=== PATIENT | female | born 1930 | race Caucasian/White ===

== ENCOUNTER 2016-12-31 08:56 | Inpatient (IN) | payer MEDICARE ==
[2016-12-31] MEDS ORDERED: SODIUM CHLORIDE 0.9% 1,000 ML IV STA ×2 (08:58)
--- NOTE | 2016-12-31 09:00 | ED ---
Fever HPI - General Stated Complaint: Sepsis Time Seen by Provider: 12/31/16 08:56 Source: EMS, RN notes reviewed, old records reviewed Mode of arrival: EMS - History of Present Illness Initial Comments: This is a 86-year-old female with a history of multiple medical problems including dementia who is brought in for evaluation for decreased mental status and fever. She was found have a 101.3 temporal scan heart rate of 106 per EMS reports of urinary tract infection. No nausea vomiting diarrhea she normally is a and O 2 she appears be less than this. She was given 300 mL of fluid per EMS her heart rate came down to 90. She been crying and resistant to care. No other reports of problems MD Complaint: fever - Related Data Home Medications Medication Instructions Recorded Confirmed ALPRAZolam [Xanax] 0.5 mg PO DAILY 12/31/16 12/31/16 ALPRAZolam [Xanax] 0.5 mg PO DAILY PRN 12/31/16 12/31/16 Acetaminophen Tab [Tylenol Tab] 650 mg PO Q6H PRN 12/31/16 12/31/16 Alendronate Sodium Solution 70 mg PO TU 12/31/16 12/31/16 Bisacodyl [Dulcolax] 10 mg RECTAL DAILY PRN 12/31/16 12/31/16 Ferrous Sulfate [Feosol] 325 mg PO DAILY 12/31/16 12/31/16 Furosemide [Lasix] 40 mg PO QAM 12/31/16 12/31/16 Glycerin/Propylene Glycol 1 drop BOTH EYES Q8H PRN 12/31/16 12/31/16 [Artificial Tears Drops] Hydrocortisone Cream 1 applic TOPICAL DAILY PRN 12/31/16 12/31/16 [Hydrocortisone 2.5% Cream] Magnesium Hydroxide [Milk of 7,200 mg PO DAILY PRN 12/31/16 12/31/16 Magnesia Concentrate] Na Phos,M-B/Na Phos,Di-Ba [Fleet 133 ml RECTAL DAILY PRN 12/31/16 12/31/16 Adult] Potassium Chloride ER [K-Dur 10] 10 meq PO DAILY 12/31/16 12/31/16 Rivastigmine Tartrate [Exelon] 3 mg PO BID 12/31/16 12/31/16 Sulfamethox-Tmp 400-80Mg [Bactrim 1 tab PO BID 12/31/16 12/31/16 SS 400-80 mg] Talc-Zinc Oxide Powder 1 applic TOPICAL DAILY PRN 12/31/16 12/31/16 Talc-Zinc Oxide Powder 1 applic TOPICAL TID 12/31/16 12/31/16 predniSONE 5 mg PO DAILY 12/31/16 12/31/16 traZODone HCL 25 mg PO HS 12/31/16 12/31/16 Allergies Allergy/AdvReac Type Severity Reaction Status Date / Time adhesive tape Allergy Rash/Hives Verified 12/31/16 12:30 rivastigmine [From Exelon] Allergy Rash/Hives Verified 12/31/16 12:30 Review of Systems ROS Statement: Those systems with pertinent positive or pertinent negative responses have been documented in the HPI. ROS Other: All systems not noted in ROS Statement are negative. Limitations: ROS unobtainable due to patients medical condition General Exam - General Exam Comments Initial Comments: This is a well-developed well-nourished female she is crying General appearance: alert, in no apparent distress Head exam: Present: atraumatic, normocephalic, normal inspection Eye exam: Present: normal appearance, PERRL, EOMI. Absent: scleral icterus, conjunctival injection, periorbital swelling ENT exam: Present: mucous membranes dry Neck exam: Present: normal inspection. Absent: tenderness, meningismus, lymphadenopathy Respiratory exam: Present: normal lung sounds bilaterally. Absent: respiratory distress, wheezes, rales, rhonchi, stridor Cardiovascular Exam: Present: regular rate, normal rhythm, normal heart sounds. Absent: systolic murmur, diastolic murmur, rubs, gallop, clicks GI/Abdominal exam: Present: soft, normal bowel sounds. Absent: distended, tenderness, guarding, rebound, rigid Extremities exam: Present: normal inspection, full ROM, normal capillary refill. Absent: tenderness, pedal edema, joint swelling, calf tenderness Back exam: Present: normal inspection Neurological exam: Present: alert, altered, CN II-XII intact Psychiatric exam: Present: anxious, flat affect Skin exam: Present: warm, dry, intact, normal color. Absent: rash Course Vital Signs 12/31/16 12/31/16 12/31/16 09:00 09:04 09:30 Temperature 100.8 F H 101.8 F H 100.3 F H Pulse Rate 76 Pulse Rate [ 88 72 Right Supine Pulse Oximetery ] Respiratory 16 16 16 Rate Blood Pressure 131/59 Blood Pressure 131/59 113/54 [Right Arm Supine] O2 Sat by Pulse 93 L Oximetry 12/31/16 12/31/16 12/31/16 10:00 10:20 11:00 Temperature 100.0 F H 99.1 F 99.0 F Pulse Rate Pulse Rate [ 78 84 Right Supine Pulse Oximetery ] Respiratory 16 16 16 Rate Blood Pressure Blood Pressure 121/59 119/55 123/56 [Right Arm Supine] O2 Sat by Pulse Oximetry 12/31/16 14:03 Temperature 101.4 F H Pulse Rate 87 Pulse Rate [ Right Supine Pulse Oximetery ] Respiratory 18 Rate Blood Pressure 133/88 Blood Pressure [Right Arm Supine] O2 Sat by Pulse 98 Oximetry Medical Decision Making - Medical Decision Making Patient will be admitted for IV antibiotics and hydration. - Lab Data Result diagrams: 12/31/16 09:30 12/31/16 09:30 Lab Results 12/31/16 12/31/16 12/31/16 Range/Units 09:30 09:30 09:30 WBC 6.2 (3.8-10.6) k/uL RBC 3.31 L (3.80-5.40) m/uL Hgb 11.2 L (11.4-16.0) gm/dL Hct 32.1 L (34.0-46.0) % MCV 97.1 (80.0-100.0) fL MCH 33.8 (25.0-35.0) pg MCHC 34.8 (31.0-37.0) g/dL RDW 14.0 (11.5-15.5) % Plt Count 106 L (150-450) k/uL Neutrophils % 80 % Lymphocytes % 9 % Monocytes % 5 % Eosinophils % 4 % Basophils % 0 % Neutrophils # 5.0 (1.3-7.7) k/uL Lymphocytes # 0.6 L (1.0-4.8) k/uL Monocytes # 0.3 (0-1.0) k/uL Eosinophils # 0.2 (0-0.7) k/uL Basophils # 0.0 (0-0.2) k/uL PT 11.1 (9.0-12.0) sec INR 1.1 (<1.1) APTT 26.1 (22.0-30.0) sec Sodium (137-145) mmol/L Potassium (3.5-5.1) mmol/L Chloride (98-107) mmol/L Carbon Dioxide (22-30) mmol/L Anion Gap mmol/L BUN (7-17) mg/dL Creatinine (0.52-1.04) mg/dL Est GFR (MDRD) Af Amer (>60 ml/min/1.73 sqM) Est GFR (MDRD) Non-Af (>60 ml/min/1.73 sqM) Glucose (74-99) mg/dL Plasma Lactic Acid Vinicius (0.7-2.0) mmol/L Calcium (8.4-10.2) mg/dL Magnesium (1.6-2.3) mg/dL Total Bilirubin (0.2-1.3) mg/dL AST (14-36) U/L ALT (9-52) U/L Alkaline Phosphatase (38-126) U/L Total Creatine Kinase 181 H (30-135) U/L CK-MB (CK-2) 1.2 (0.0-2.4) ng/mL CK-MB (CK-2) Rel Index 0.7 Total Protein (6.3-8.2) g/dL Albumin (3.5-5.0) g/dL Urine Color Urine Appearance (Clear) Urine pH (5.0-8.0) Ur Specific [place] (1.001-1.035) Urine Protein (Negative) Urine Glucose (UA) (Negative) Urine Ketones (Negative) Urine Blood (Negative) Urine Nitrite (Negative) Urine Bilirubin (Negative) Urine Urobilinogen (<2.0) mg/dL Ur Leukocyte Esterase (Negative) Urine WBC (0-5) /hpf Ur Squamous Epith Cells (0-4) /hpf Urine Bacteria (None) /hpf 12/31/16 12/31/16 12/31/16 Range/Units 09:30 09:30 10:18 WBC (3.8-10.6) k/uL RBC (3.80-5.40) m/uL Hgb (11.4-16.0) gm/dL Hct (34.0-46.0) % MCV (80.0-100.0) fL MCH (25.0-35.0) pg MCHC (31.0-37.0) g/dL RDW (11.5-15.5) % Plt Count (150-450) k/uL Neutrophils % % Lymphocytes % % Monocytes % % Eosinophils % % Basophils % % Neutrophils # (1.3-7.7) k/uL Lymphocytes # (1.0-4.8) k/uL Monocytes # (0-1.0) k/uL Eosinophils # (0-0.7) k/uL Basophils # (0-0.2) k/uL PT (9.0-12.0) sec INR (<1.1) APTT (22.0-30.0) sec Sodium 138 (137-145) mmol/L Potassium 4.4 (3.5-5.1) mmol/L Chloride 108 H (98-107) mmol/L Carbon Dioxide 23 (22-30) mmol/L Anion Gap 7 mmol/L BUN 23 H (7-17) mg/dL Creatinine 1.59 H (0.52-1.04) mg/dL Est GFR (MDRD) Af Amer 37 (>60 ml/min/1.73 sqM) Est GFR (MDRD) Non-Af 31 (>60 ml/min/1.73 sqM) Glucose 100 H (74-99) mg/dL Plasma Lactic Acid Vniicius 0.9 (0.7-2.0) mmol/L Calcium 7.9 L (8.4-10.2) mg/dL Magnesium 2.1 (1.6-2.3) mg/dL Total Bilirubin 0.8 (0.2-1.3) mg/dL AST 36 (14-36) U/L ALT 38 (9-52) U/L Alkaline Phosphatase 132 H (38-126) U/L Total Creatine Kinase (30-135) U/L CK-MB (CK-2) (0.0-2.4) ng/mL CK-MB (CK-2) Rel Index Total Protein 5.7 L (6.3-8.2) g/dL Albumin 2.7 L (3.5-5.0) g/dL Urine Color Yellow Urine Appearance Cloudy H (Clear) Urine pH 7.5 (5.0-8.0) Ur Specific [place] 1.011 (1.001-1.035) Urine Protein 1+ H (Negative) Urine Glucose (UA) Negative (Negative) Urine Ketones Negative (Negative) Urine Blood Trace H (Negative) Urine Nitrite Negative (Negative) Urine Bilirubin Negative (Negative) Urine Urobilinogen 6.0 (<2.0) mg/dL Ur Leukocyte Esterase Moderate H (Negative) Urine WBC 14 H (0-5) /hpf Ur Squamous Epith Cells 1 (0-4) /hpf Urine Bacteria Moderate H (None) /hpf - Radiology Data Radiology results: report reviewed (I did review the imaging and report is evidence of bilateral lower lobe infiltrates.), image reviewed Disposition Clinical Impression: Bilateral pneumonia, Febrile illness, acute, Dehydration Disposition: ADMITTED IP TO THIS [facility] Condition: Stable
[2016-12-31 09:48] LABS: Basophils % (A) 0 %; CH 33.1; CHCM 34.2; Eosinophils # (A) 0.2 k/uL (0-0.7); Eosinophils % (A) 4 %; HCT 32.1 % (34.0-46.0); HDW 2.61; HGB 11.2 gm/dL (11.4-16.0); Luc # (Auto) 0.12; Luc % (Auto) 2; Lymphocytes # (A) 0.6 k/uL (1.0-4.8); Lymphocytes % (A) 9 %; MCH 33.8 pg (25.0-35.0); MCHC 34.8 g/dL (31.0-37.0); MCV 97.1 fL (80.0-100.0); Mean Platelet Volume 7.3; Monocytes # (A) 0.3 k/uL (0-1.0); Monocytes % (A) 5 %; Neutrophils % (A) 80 %; RBC 3.31 m/uL (3.80-5.40); WBC 6.2 k/uL (3.8-10.6); WBC (Perox) 6.99
[2016-12-31 09:57] LABS: Partial Thromboplastin Time 26.1 sec (22.0-30.0)
[2016-12-31 09:59] LABS: INR 1.1 (<1.1); Prothrombin Time 11.1 sec (9.0-12.0)
[2016-12-31 10:05] LABS: Calcium 7.9 mg/dL (8.4-10.2); Magnesium 2.1 mg/dL (1.6-2.3); Potassium 4.4 mmol/L (3.5-5.1); Total Bilirubin 0.8 mg/dL (0.2-1.3); Total Protein 5.7 g/dL (6.3-8.2)
[2016-12-31 10:18] LABS: Creatine Kinase MB 1.2 ng/mL (0.0-2.4)
[2016-12-31 10:36] LABS: Appearance,Urine Cloudy (Clear); Bacteria,Urine Moderate /hpf; Bilirubin,Urine Negative (Negative); Glucose,Urine (UA) Negative (Negative); Ketones,Urine Negative (Negative); Leukocyte Esterase,Urine Moderate (Negative); Nitrite,Urine Negative (Negative); PH, Urine 7.5 (5.0-8.0); Particle Count 92829; Protein,Urine 1+ (Negative); Specific Gravity,Urine 1.011 (1.001-1.035); Squamous Epithelial Cell,Urine 1 /hpf (0-4); UA Billing (MACRO vs. MICRO) MICRO; WBC,Urine 14 /hpf (0-5)
--- NOTE | 2016-12-31 12:32 | XR ---
EXAMINATION TYPE: XR chest 2V DATE OF EXAM: 12/31/2016 11:39 AM HISTORY: Shortness of breath. COMPARISON: None. TECHNIQUE: 2 view chest FINDINGS: Heart size is mildly prominent. Pulmonary vasculature is normal. Mild bibasilar infiltrates are prese nt. Correlate for atelectasis or pneumonia. IMPRESSION: 1. Bibasilar infiltrates. Correlate for atelectasis or pneumonia. Follow-up is recommended.
[2016-12-31] MEDS ORDERED: LEVOFLOXACIN 750MG-D5W PMX 750 MG in DEXTROSE/WATER 1 150ML.BAG IVPB STA (13:41)
[2016-12-31] MEDS ORDERED: PNEUMONIA PROTOCOL UTILIZED 1 EACH MISC PO PRN (14:19)
[2016-12-31] MEDS ORDERED: ACETAMINOPHEN TAB 325 MG TAB PO PRN (14:21)
[2016-12-31] MEDS ORDERED: ARTIFICIAL TEARS-HYPROMELLOSE DROPS 15 ML BTL BOTH EYES PRN (14:21)
[2016-12-31] MEDS ORDERED: KETOROLAC 30 MG/ML 1 ML VIAL IVP STA (14:22)
[2016-12-31] MEDS ORDERED: BISACODYL 10 MG SUPP RECTAL PRN (16:13)
[2016-12-31] MEDS ORDERED: ALPRAZolam 0.5 MG TAB PO PRN (16:13)
[2016-12-31] MEDS ORDERED: HYDROCORTISONE 1% CREAM 30 GM TUBE TOPICAL PRN (16:13)
[2016-12-31] MEDS ORDERED: MAGNESIUM HYDROXIDE 2,400 MG/10 ML CUP PO PRN (16:13)
[2016-12-31] MEDS: PIPERACILLIN-TAZOBACTAM 3.375 GM in DEXTROSE/WATER 1 50ML.BAG IVPB SCH ×2 (17:13→23:12)
[2016-12-31] MEDS: traZODone HCL 50 MG TAB PO SCH (20:12)
[2016-12-31] MEDS: IPRATROPIUM-ALBUTEROL 3 ML NEB INHALATION SCH ×2 (20:28→20:29)
[2016-12-31] MEDS ORDERED: IPRATROPIUM-ALBUTEROL 3 ML NEB INHALATION PRN (20:34)
[2017-01-01] MEDS ORDERED: LORazepam 2 MG/ML SYRINGE IV PRN (05:55)
[2017-01-01] MEDS ORDERED: ALPRAZolam 0.5 MG TAB PO PRN (05:57)
[2017-01-01 06:15] LABS: Basophils % (A) 0 %; CH 32.5; CHCM 32.4; Eosinophils # (A) 0.2 k/uL (0-0.7); Eosinophils % (A) 2 %; HDW 2.66; HGB 11.9 gm/dL (11.4-16.0); Luc # (Auto) 0.23; Luc % (Auto) 2; Lymphocytes # (A) 1.7 k/uL (1.0-4.8); Lymphocytes % (A) 17 %; MCH 33.4 pg (25.0-35.0); MCHC 33.1 g/dL (31.0-37.0); MCV 100.9 fL (80.0-100.0); Macrocytosis Slight; Mean Platelet Volume 7.2; Monocytes # (A) 0.4 k/uL (0-1.0); Monocytes % (A) 4 %; Neutrophils # (A) 7.6 k/uL (1.3-7.7); Neutrophils % (A) 75 %; RBC 3.57 m/uL (3.80-5.40); WBC 10.1 k/uL (3.8-10.6); WBC (Perox) 10.94
[2017-01-01] MEDS: DILTIAZEM 125 MG in SODIUM CHLORIDE 0.9% 100 ML IV SCH (06:26)
[2017-01-01 06:29] LABS: Calcium 8.3 mg/dL (8.4-10.2); Total Bilirubin 1.1 mg/dL (0.2-1.3); Total Protein 5.7 g/dL (6.3-8.2)
[2017-01-01 06:31] LABS: Potassium 4.7 mmol/L (3.5-5.1)
[2017-01-01 07:10] LABS: Glucose,Whole Blood 104 mg/dL (75-99)
[2017-01-01 07:29] LABS: Appearance,Urine Turbid (Clear); Bacteria,Urine Many /hpf; Bilirubin,Urine Negative (Negative); Glucose,Urine (UA) Negative (Negative); Ketones,Urine 1+ (Negative); Leukocyte Esterase,Urine Large (Negative); Mucus,Urine Rare /hpf; Nitrite,Urine Negative (Negative); PH, Urine 7.5 (5.0-8.0); Particle Count 129291; Protein,Urine 1+ (Negative); RBC,Urine 6 /hpf (0-5); Specific Gravity,Urine 1.011 (1.001-1.035); Squamous Epithelial Cell,Urine 2 /hpf (0-4); UA Billing (MACRO vs. MICRO) MICRO; Urobilinogen,Urine <2.0 mg/dL (<2.0); WBC,Urine >182 /hpf (0-5)
[2017-01-01] MEDS ORDERED: DEXTROSE 5% IN WATER 100 ML with AMIODARONE 150 MG IV ONE (07:30)
[2017-01-01] MEDS: AMIODARONE 450 MG in DEXTROSE 5% IN WATER 250 ML IV SCH ×6 (08:01→23:33)
[2017-01-01] MEDS: PIPERACILLIN-TAZOBACTAM 3.375 GM in DEXTROSE/WATER 1 50ML.BAG IVPB SCH ×3 (08:02→23:35)
--- NOTE | 2017-01-01 08:15 | XR ---
EXAMINATION TYPE: XR chest 1V portable DATE OF EXAM: 01/01/2017 8:08 AM COMPARISON: NONE INDICATION: Short of breath low blood pressure TECHNIQUE: Single frontal view of the chest is obtained. FINDINGS: The heart size is mildly prominent. The pulmonary vasculature is prominent. Bibasilar infiltrates are present greater on the right. These are increasing over the interval. Peribronchial thickening is present. Small right pleural effusion is present. IMPRESSION: 1. Clinical consideration for developing congestive heart failure is recommended.
[2017-01-01] MEDS ORDERED: ENOXAPARIN 60 MG/0.6 ML SYRINGE SQ SCH (09:00)
[2017-01-01] MEDS ORDERED: MAGNESIUM SULFATE-D5W PMX 1 GM in DEXTROSE/WATER 1 100ML.BAG IVPB ONE (10:00)
[2017-01-01] MEDS: predniSONE 5 MG TAB PO SCH (11:01)
[2017-01-01] MEDS: FERROUS SULFATE 325 MG TAB PO SCH (11:01)
[2017-01-01] MEDS: DONEPEZIL 10 MG TAB PO SCH (11:01)
[2017-01-01] MEDS: POTASSIUM CHLORIDE ER 10 MEQ TAB.ER.PRT PO SCH (11:01)
[2017-01-01] MEDS: FUROSEMIDE 40 MG TAB PO SCH (11:01)
[2017-01-01] MEDS: IPRATROPIUM-ALBUTEROL 3 ML NEB INHALATION SCH ×4 (11:07→20:44)
--- NOTE | 2017-01-01 11:39 | ECHOF ---
Referral Reason:ventricular tachycardia MEASUREMENTS -------- HEIGHT: 162.6 cm WEIGHT: 63.5 kg BP: RVIDd: 2.3 cm (< 3.3) IVSd: 1.4 cm (0.6 - 1.1) LVIDd: 5.0 cm (3.9 - 5.3) LVPWd: 1.3 cm (0.6 - 1.1) IVSs: 1.5 cm LVIDs: 4.4 cm LVPWs: 1.5 cm LA Diam: 3.6 cm (2.7 - 3.8) LAESV Index (A-L): 35.59 ml/m Ao Diam: 3.1 cm (2.0 - 3.7) LA Diam: 4.0 cm (2.7 - 3.8) MV E Chip: 0.58 m/s MV DecT: 104 ms MV A Chip: 0.36 m/s MV E/A Ratio: 1.65 AV maxP.74 mmHg AV meanP.97 mmHg RAP: 5.00 mmHg RVSP: 27.93 mmHg FINDINGS -------- Undetermined rhythm. This was a technically adequate study. There is moderate concentric left ventricular hypertrophy. Overall left ventricular systolic function is normal with, an EF between 55 - 60 %. The right ventricle is normal in size. The left atrium is mildly dilated. The right atrial size is normal. The aortic valve was not well visualized. There is severe aortic valve sclerosis. There is severe aortic stenosis present. Peak/mean gradient across the Aortic Valve is 58.74mmHg / 33.97mmHg. AOV is possible Bicuspid. Mild mitral annular calcification present. Mild mitral regurgitation is present. Mild tricuspid regurgitation present. There is no evidence of pulmonary hypertension. The right ventricular systolic pressure, as measured by Doppler, is 27.93mmHg. There is no pulmonic regurgitation present. The aortic root size is normal. There is no pericardial effusion. CONCLUSIONS -------- 1. There is moderate concentric left ventricular hypertrophy. 2. Mild tricuspid regurgitation present. 3. There is no evidence of pulmonary hypertension. 4. The right ventricular systolic pressure, as measured by Doppler, is 27.93mmHg. 5. There is no pericardial effusion. 6. The left atrium is mildly dilated. 7. The aortic valve was not well visualized. 8. There is severe aortic valve sclerosis. 9. There is severe aortic stenosis present. 10. Peak/mean gradient across the Aortic Valve is 58.74mmHg / 33.97mmHg. 11. AOV is possible Bicuspid. 12. Mild mitral annular calcification present. 13. Mild mitral regurgitation is present. OFFSET DUPLICATING MACHINE OPERATOR: Janell Glover RDCS
--- NOTE | 2017-01-01 11:59 | P.HPIM ---
History of Present Illness H&P Date: 01/01/17 Chief Complaint: Febrile illness Patient is an 86-year-old female patient of Dr. Andino who resides at [facility] who was noticed to have elevated fever and feeling tired she was sent to [facility] emergency room, she had evidence of by basilar infiltrates and evidence of urinary tract infection she was started on IV Levaquin and was admitted to medical floor. Lactic acid was normal at 0.9 on presentation. A few hours later patient developed an episode of atrial fibrillation with rapid ventricular response heart rate was up to 200, blood pressure was low, and at that time repeat lactic acid was elevated at 5 she was given IV fluids she was started on IV Cardizem drip she was started on Lovenox subcu and was transferred to telemetry, subsequence the patient had cardiac arrest with an episode of V. tach she did not require any chest compression she was transferred to intensive care unit she was started on IV Cordarone, Levaquin was discontinued she was started on IV Zosyn, blood culture and urine culture and sputum culture were ordered. Pulmonary consultation and cardiology consultation were requested. Past Medical History Past Medical History: Dementia, Osteoarthritis (OA), Renal Disease Additional Past Medical History / Comment(s): Rhabdomyolysis, UTI, aortic stenosis, atherosclerosis osteoporosis, lupus, hypokalemia, anemia, difficulty ambulating-uses walker and assistance, multiple UTIs. History of Any Multi-Drug Resistant Organisms: None Reported Past Surgical History: No Surgical Hx Reported Past Anesthesia/Blood Transfusion Reactions: Unable to Obtain Additional Past Anesthesia/Blood Transfusion Reaction / Comment(s): no previous transfusion reported. Past Psychological History: Anxiety Smoking Status: Unknown if ever smoked Past Alcohol Use History: None Reported Past Drug Use History: None Reported - Past Family History Mother History Unknown: Yes Family Medical History: No Reported History, Unable to Obtain Father History Unknown: Yes Family Medical History: No Reported History, Unable to Obtain Medications and Allergies Home Medications Medication Instructions Recorded Confirmed Type ALPRAZolam [Xanax] 0.5 mg PO DAILY 12/31/16 12/31/16 History ALPRAZolam [Xanax] 0.5 mg PO DAILY PRN 12/31/16 12/31/16 History Acetaminophen Tab [Tylenol Tab] 650 mg PO Q6H PRN 12/31/16 12/31/16 History Alendronate Sodium Solution 70 mg PO TU 12/31/16 12/31/16 History Bisacodyl [Dulcolax] 10 mg RECTAL DAILY PRN 12/31/16 12/31/16 History Ferrous Sulfate [Feosol] 325 mg PO DAILY 12/31/16 12/31/16 History Furosemide [Lasix] 40 mg PO QAM 12/31/16 12/31/16 History Glycerin/Propylene Glycol 1 drop BOTH EYES Q8H PRN 12/31/16 12/31/16 History [Artificial Tears Drops] Hydrocortisone Cream 1 applic TOPICAL DAILY PRN 12/31/16 12/31/16 History [Hydrocortisone 2.5% Cream] Magnesium Hydroxide [Milk of 7,200 mg PO DAILY PRN 12/31/16 12/31/16 History Magnesia Concentrate] Na Phos,M-B/Na Phos,Di-Ba [Fleet 133 ml RECTAL DAILY PRN 12/31/16 12/31/16 History Adult] Potassium Chloride ER [K-Dur 10] 10 meq PO DAILY 12/31/16 12/31/16 History Rivastigmine Tartrate [Exelon] 3 mg PO BID 12/31/16 12/31/16 History Sulfamethox-Tmp 400-80Mg [Bactrim 1 tab PO BID 12/31/16 12/31/16 History SS 400-80 mg] Talc-Zinc Oxide Powder 1 applic TOPICAL DAILY PRN 12/31/16 12/31/16 History Talc-Zinc Oxide Powder 1 applic TOPICAL TID 12/31/16 12/31/16 History predniSONE 5 mg PO DAILY 12/31/16 12/31/16 History traZODone HCL 25 mg PO HS 12/31/16 12/31/16 History Allergies Allergy/AdvReac Type Severity Reaction Status Date / Time adhesive tape Allergy Rash/Hives Verified 12/31/16 12:30 rivastigmine [From Exelon] Allergy Rash/Hives Verified 12/31/16 12:30 Physical Exam Vitals: Vital Signs Temp Pulse Pulse Pulse Resp BP BP 01/01/17 11:46 54 L 01/01/17 11:28 01/01/17 11:27 54 L 01/01/17 10:50 64 24 91/51 01/01/17 10:40 58 L 21 88/51 01/01/17 10:30 56 L 19 79/49 01/01/17 10:20 60 17 94/47 01/01/17 10:10 56 L 18 94/47 01/01/17 10:00 59 L 21 97/60 01/01/17 09:50 74 16 97/60 01/01/17 09:40 68 18 96/49 01/01/17 09:30 69 21 96/49 01/01/17 09:20 63 19 101/54 01/01/17 09:10 74 19 101/54 01/01/17 09:00 81 33 H 101/54 01/01/17 08:50 84 25 H 108/62 01/01/17 08:40 83 29 H 95/61 01/01/17 08:30 86 28 H 95/61 01/01/17 08:20 91 21 94/53 01/01/17 08:10 91 40 H 94/53 01/01/17 08:00 98.6 F 93 85 29 H 94/53 01/01/17 07:50 141 H 29 H 71/49 01/01/17 07:40 159 H 13 80/49 01/01/17 07:30 146 H 13 85/53 01/01/17 07:20 144 H 23 71/50 01/01/17 07:10 148 H 9 L 93/54 01/01/17 07:00 173 H 24 82/51 01/01/17 06:53 20 L 01/01/17 06:35 186 H 115/11 01/01/17 06:23 98.8 F 181 H 18 95/51 01/01/17 05:41 98.6 F 120 H 22 115/67 12/31/16 23:55 98.6 F 83 20 97/75 12/31/16 20:40 80 12/31/16 20:31 81 12/31/16 15:57 16 12/31/16 15:00 98.4 F 82 16 BP Pulse Ox 01/01/17 11:46 01/01/17 11:28 96 01/01/17 11:27 01/01/17 10:50 96 01/01/17 10:40 96 01/01/17 10:30 97 01/01/17 10:20 96 01/01/17 10:10 97 01/01/17 10:00 95 01/01/17 09:50 97 01/01/17 09:40 94 L 01/01/17 09:30 95 01/01/17 09:20 96 01/01/17 09:10 97 01/01/17 09:00 96 01/01/17 08:50 96 01/01/17 08:40 96 01/01/17 08:30 95 01/01/17 08:20 91 L 01/01/17 08:10 95 01/01/17 08:00 94 L 01/01/17 07:50 93 L 01/01/17 07:40 93 L 01/01/17 07:30 94 L 01/01/17 07:20 95 01/01/17 07:10 94 L 01/01/17 07:00 95 01/01/17 06:53 01/01/17 06:35 01/01/17 06:23 01/01/17 05:41 94 L 12/31/16 23:55 93 L 12/31/16 20:40 12/31/16 20:31 12/31/16 15:57 12/31/16 15:00 122/58 93 L Intake and Output 12/31/16 01/01/17 01/01/17 22:59 06:59 14:59 Intake Total 404 092 8109.1 Output Total 85 Balance 830 895 0153.1 Intake: IV 2000 0.9 NACL 2000 Intake, IV Titration 79.1 Amount Amiodarone 450 mg In 66.6 Dextrose 5% in Water 250 ml @ 1 MG/MIN 34.53 mls/ hr IV .[id number] [facility] Rx#: [id number] Piperacillin-Tazobactam 3 12.5 .375 gm In Dextrose/Water 1 50ml.bag @ 12.5 mls/hr IVPB Q8HR [facility] Rx#: [id number] Oral 200 100 Output: Urine 85 Other: Voiding Method Diaper Diaper Diaper Incontinent Incontinent Incontinent # Voids 1 2 Weight 63.503 kg Currently patient is somnolent she is responsive only to repeated to stimuli HEENT head normocephalic and atraumatic Neck is supple no JVD no goiter no lymphadenopathy Chest exam reveals a crackles in both lung ling no wheezing Cardiac exam reveals irregular heart sounds no gallops with 3/6 systolic murmur in the left sternal border Abdomen is soft nontender no organomegaly with normal bowel sounds Extremity exam reveals no edema no cyanosis or clubbing Skin exam reveals a pressure area in the sacral region without open skin lesions Results CBC & Chem 7: 01/01/17 06:00 01/01/17 06:00 Labs: Abnormal Lab Results - Last 24 Hours (Table) 01/01/17 01/01/17 01/01/17 Range/Units 06:00 06:00 06:00 RBC 3.57 L (3.80-5.40) m/uL MCV 100.9 H (80.0-100.0) fL Plt Count 105 L (150-450) k/uL Chloride 110 H (98-107) mmol/L Carbon Dioxide 19 L (22-30) mmol/L BUN 21 H (7-17) mg/dL Creatinine 1.70 H (0.52-1.04) mg/dL POC Glucose (mg/dL) (75-99) mg/dL Plasma Lactic Acid Vinicuis 5.7 H* (0.7-2.0) mmol/L Calcium 8.3 L (8.4-10.2) mg/dL Alkaline Phosphatase 152 H (38-126) U/L Total Protein 5.7 L (6.3-8.2) g/dL Albumin 2.8 L (3.5-5.0) g/dL Urine Appearance (Clear) Urine Protein (Negative) Urine Ketones (Negative) Urine Blood (Negative) Ur Leukocyte Esterase (Negative) Urine RBC (0-5) /hpf Urine WBC (0-5) /hpf Urine WBC Clumps (None) /hpf Urine Bacteria (None) /hpf Hyaline Casts (0-2) /lpf Urine Mucus (None) /hpf Urine Yeast (Budding) (None) /hpf 01/01/17 01/01/17 Range/Units 07:00 07:09 RBC (3.80-5.40) m/uL MCV (80.0-100.0) fL Plt Count (150-450) k/uL Chloride (98-107) mmol/L Carbon Dioxide (22-30) mmol/L BUN (7-17) mg/dL Creatinine (0.52-1.04) mg/dL POC Glucose (mg/dL) 104 H (75-99) mg/dL Plasma Lactic Acid Vinicius (0.7-2.0) mmol/L Calcium (8.4-10.2) mg/dL Alkaline Phosphatase (38-126) U/L Total Protein (6.3-8.2) g/dL Albumin (3.5-5.0) g/dL Urine Appearance Turbid H (Clear) Urine Protein 1+ H (Negative) Urine Ketones 1+ H (Negative) Urine Blood Small H (Negative) Ur Leukocyte Esterase Large H (Negative) Urine RBC 6 H (0-5) /hpf Urine WBC >182 H (0-5) /hpf Urine WBC Clumps Few H (None) /hpf Urine Bacteria Many H (None) /hpf Hyaline Casts 5 H (0-2) /lpf Urine Mucus Rare H (None) /hpf Urine Yeast (Budding) Few H (None) /hpf Microbiology - Last 24 Hours (Table) 01/01/17 07:00 Urine Culture - Preliminary Urine,Catheterized Thrombosis Risk Factor Assmnt - Choose All That Apply Any of the Below Risk Factors Present?: Yes Other Risk Factors: Yes Each Risk Factor Represents 3 Points: Age 75 years or older Thrombosis Risk Factor Assessment Total Risk Factor Score: 3 Thrombosis Risk Factor Assessment Level: Moderate Risk Assessment and Plan Plan: #1 bilateral pneumonia #2 urinary tract infection #3 sepsis #4 atrial fibrillation was rapid ventricular response #5 nonsustained V. tach #6 underlying history of dementia #7 underlying history of physical debility patient could ambulate a few steps was a use of a walker at [facility] prior to admission #8 CODE STATUS at this time is still full code, prognosis is poor due to patient age and multiple medical problems At this time her power of multimedia services manager is her brother and we are trying to reach him to discuss CODE STATUS and further therapeutic options. At this time continue with IV Zosyn, continue with IV Cordarone, continue with IV fluid support Awaiting blood culture and urine culture and sputum culture Pulmonary and cardiology are following Prognosis is poor
[2017-01-01] MEDS ORDERED: NOREPINEPHRIN 4 MG-0.9% NS PMX 4 MG/250 ML ML IV SCH (12:15)
[2017-01-01 12:16] LABS: Glucose,Whole Blood 143 mg/dL (75-99)
[2017-01-01] MEDS ORDERED: LEVOFLOXACIN 750MG-D5W PMX 750 MG in DEXTROSE/WATER 1 150ML.BAG IVPB SCH (14:00)
--- NOTE | 2017-01-01 15:03 | CONS ---
DATE OF CONSULTATION: 01/01/2017 REASON FOR CONSULTATION: Critical care management. This is an 86-year-old female patient, who resides at [facility]. She has a history of severe dementia, aortic stenosis, lupus, osteoporosis, renal failure. She also had recently been found to have a urinary tract infection with Proteus mirabilis and was initiated on Bactrim. She was transferred here yesterday from the [facility] after having been found to have a temperature 101.3 and was tachycardic. She also had some altered mental status. She was seen and evaluated in the emergency room and was reported to have bilateral pneumonia, febrile illness and acute dehydration. She was admitted to the hospital for the same. About 5:30 this morning she developed self-limiting ventricular tachycardia, did not require any defibrillation or CPR. She was transferred here to the intensive care unit and we are consulted for the same. She is currently in atrial fibrillation with a rapid ventricular response. She has been initiated on amiodarone bolus and amiodarone drip at 1 mg per minute. She is also on Cardizem drip at 5 mg per hour. She did have some issues with hypotension. She received 2 liters of fluid resuscitation. Currently not on any pressors. She had initially been started on antibiotics in the form of Zosyn, Levaquin and there is some concern regarding possible prolonged QT syndrome. The patient herself does have severe dementia and is a poor historian. She is currently maintaining O2 saturation in the mid 90s on 4 liters per minute per nasal cannula. She has been afebrile. Systolic blood pressures in the 90s this morning's. This morning's chest x-ray did reveal some evidence of congestive heart failure. Past medical history includes renal failure, rhabdomyolysis, recent urinary tract infection, moderate aortic stenosis, severe dementia, osteoporosis, lupus. Past surgical history includes breast biopsy and colonoscopy. SOCIAL HISTORY: The patient resides in an [facility] facility. No smoking. No alcohol use. No history of illicit drug use. ALLERGIES: No known drug allergies. Home medications are trazodone 25 mg at bedtime, prednisone 5 mg daily, Bactrim 1 tablet b.i.d., Exelon 3 mg b.i.d., potassium chloride 10 mEq daily, Lasix 40 mg daily, Feosol 325 mg daily, Dulcolax 10 mg as needed, Xanax 0.5 mg as needed. Review of systems unable to obtain due to mental status. On physical exam, vital signs reveal blood pressure 94/53, heart rate 93, respirations 29, temperature is 98.6. She is 94% O2 saturation on 4 liters per minute per nasal cannula. Her head is normocephalic. Sclerae anicteric. Her neck is supple. Trachea midline. Her lungs are clear anteriorly. There are crackles in the bilateral posterior bases. Her heart is irregularly irregular. S1, S2. Her abdomen is soft. Bowel sounds are present. There is 1+ peripheral edema. No clubbing. No cyanosis. Peripheral pulses are intact. INVESTIGATIONS: Blood cultures and urine cultures are pending. Lab results reveal WBC 10.1, hemoglobin 11.9, platelet count 105,000. Sodium 142, potassium 4.7, chloride 110, CO2 of 19, BUN 21, creatinine 1.70, lactic acid 5.7. Urinalysis with many bacteria, large leukocytes. Medications are reviewed. IMPRESSION: 1. Nonsustained ventricular tachycardia. 2. Atrial fibrillation with a rapid ventricular response. 3. Moderate aortic stenosis. 4. Severe dementia. 5. Lactic acidosis secondary to urinary tract infection of Proteus mirabilis, repeat culture is pending. 6. Lupus. 7. Osteoporosis. 8. Acute renal failure. 9. intermediate resident. 10. Poor overall functional performance based on the above mentioned multiple comorbidities. The patient was seen and evaluated by Dr. Moncada. Her chest x-ray, labs and EKGs were reviewed. Cardiology is on the case as well. She has been initiated on amiodarone and a Cardizem drip. Cardiology is on the case. She remains on amiodarone and Cardizem drip. Echocardiogram is pending. The patient has a brother who is the legal power of reformatory attendant who is unable to be contacted thus far regarding the update on the patient's condition. She should be considered for a DNR/DNI CODE STATUS based on her multiple comorbidities, however, until that is confirmed we will continue with full supportive care. We will continue to monitor her here closely in the intensive care unit. Will continue with her current medications. Will hold off on the Levaquin due to concerns regarding possible prolonged QT syndrome. Will await final cultures of her urine. We will continue to follow and make further recommendations based on her clinical status.
--- NOTE | 2017-01-01 20:07 | P.CRDCN ---
History of Present Illness Consult date: 01/01/17 History of present illness: This is a 86-year-old female who lives at [facility] was brought in with the elevated fever and feeling tired. In the emergency room patient was found to have evidence of bilateral infiltrates and also evidence of urinary tract infection. Patient was started on IV antibiotics including Levaquin and was admitted to the floor. Patient developed episodes of polymorphic ventricular tachycardia. Patient was subsequent transferred to intensive care unit. Subsequently she was noted to have atrial fibrillation with rapid ventricular response. Patient was started on him IV amiodarone and also IV Cardizem. Patient's echocardiogram showed evidence of severe aortic stenosis with preserved LV function. Levaquin was discontinued because of the concern for polymorphic ventricular tachycardia. Patient has multiple comorbidities and is being considered for status. Further recommendation to follow Review of Systems Not obtained Past Medical History Past Medical History: Dementia, Osteoarthritis (OA), Renal Disease Additional Past Medical History / Comment(s): Rhabdomyolysis, UTI, aortic stenosis, atherosclerosis osteoporosis, lupus, hypokalemia, anemia, difficulty ambulating-uses walker and assistance, multiple UTIs. History of Any Multi-Drug Resistant Organisms: None Reported Past Surgical History: No Surgical Hx Reported Past Anesthesia/Blood Transfusion Reactions: Unable to Obtain Additional Past Anesthesia/Blood Transfusion Reaction / Comment(s): no previous transfusion reported. Past Psychological History: Anxiety Smoking Status: Unknown if ever smoked Past Alcohol Use History: None Reported Past Drug Use History: None Reported - Past Family History Mother History Unknown: Yes Family Medical History: No Reported History, Unable to Obtain Father History Unknown: Yes Family Medical History: No Reported History, Unable to Obtain Medications and Allergies Home Medications Medication Instructions Recorded Confirmed Type ALPRAZolam [Xanax] 0.5 mg PO DAILY 12/31/16 12/31/16 History ALPRAZolam [Xanax] 0.5 mg PO DAILY PRN 12/31/16 12/31/16 History Acetaminophen Tab [Tylenol Tab] 650 mg PO Q6H PRN 12/31/16 12/31/16 History Alendronate Sodium Solution 70 mg PO TU 12/31/16 12/31/16 History Bisacodyl [Dulcolax] 10 mg RECTAL DAILY PRN 12/31/16 12/31/16 History Ferrous Sulfate [Feosol] 325 mg PO DAILY 12/31/16 12/31/16 History Furosemide [Lasix] 40 mg PO QAM 12/31/16 12/31/16 History Glycerin/Propylene Glycol 1 drop BOTH EYES Q8H PRN 12/31/16 12/31/16 History [Artificial Tears Drops] Hydrocortisone Cream 1 applic TOPICAL DAILY PRN 12/31/16 12/31/16 History [Hydrocortisone 2.5% Cream] Magnesium Hydroxide [Milk of 7,200 mg PO DAILY PRN 12/31/16 12/31/16 History Magnesia Concentrate] Na Phos,M-B/Na Phos,Di-Ba [Fleet 133 ml RECTAL DAILY PRN 12/31/16 12/31/16 History Adult] Potassium Chloride ER [K-Dur 10] 10 meq PO DAILY 12/31/16 12/31/16 History Rivastigmine Tartrate [Exelon] 3 mg PO BID 12/31/16 12/31/16 History Sulfamethox-Tmp 400-80Mg [Bactrim 1 tab PO BID 12/31/16 12/31/16 History SS 400-80 mg] Talc-Zinc Oxide Powder 1 applic TOPICAL DAILY PRN 12/31/16 12/31/16 History Talc-Zinc Oxide Powder 1 applic TOPICAL TID 12/31/16 12/31/16 History predniSONE 5 mg PO DAILY 12/31/16 12/31/16 History traZODone HCL 25 mg PO HS 12/31/16 12/31/16 History Allergies Allergy/AdvReac Type Severity Reaction Status Date / Time adhesive tape Allergy Rash/Hives Verified 12/31/16 12:30 rivastigmine [From Exelon] Allergy Rash/Hives Verified 12/31/16 12:30 Physical Exam Vitals: Vital Signs Temp Pulse Pulse Pulse Resp BP BP 01/01/17 19:00 67 20 118/58 01/01/17 18:30 71 19 103/52 01/01/17 18:00 70 24 93/43 01/01/17 17:30 63 14 96/49 01/01/17 17:09 62 01/01/17 17:00 77 21 108/54 01/01/17 16:30 60 22 109/56 01/01/17 16:00 97.7 F 62 85 120 H 23 105/59 01/01/17 15:30 66 17 94/47 01/01/17 15:00 67 18 90/53 01/01/17 14:30 118 H 17 97/56 01/01/17 14:19 01/01/17 14:10 109 H 16 77/62 01/01/17 14:00 105 H 18 106/49 01/01/17 13:50 106 H 17 106/49 01/01/17 13:40 122 H 17 97/55 01/01/17 13:30 88 18 97/55 01/01/17 13:20 135 H 18 99/48 01/01/17 13:10 80 20 99/48 01/01/17 13:00 97.7 F 133 H 22 86/53 01/01/17 12:50 94 21 86/53 01/01/17 12:40 139 H 23 85/49 01/01/17 12:30 78 20 85/49 01/01/17 12:20 109 H 13 78/42 01/01/17 12:10 78 15 78/42 01/01/17 12:00 72 85 120 H 23 94/49 01/01/17 11:50 64 18 94/49 01/01/17 11:46 54 L 01/01/17 11:40 63 19 87/48 01/01/17 11:30 57 L 21 87/48 01/01/17 11:28 01/01/17 11:27 54 L 01/01/17 11:20 55 L 21 98/53 01/01/17 11:10 55 L 16 98/53 01/01/17 11:00 62 17 98/53 01/01/17 10:50 64 24 91/51 01/01/17 10:40 58 L 21 88/51 01/01/17 10:30 56 L 19 79/49 01/01/17 10:20 60 17 94/47 01/01/17 10:10 56 L 18 94/47 01/01/17 10:00 59 L 21 97/60 01/01/17 09:50 74 16 97/60 01/01/17 09:40 68 18 96/49 01/01/17 09:30 69 21 96/49 01/01/17 09:20 63 19 101/54 01/01/17 09:19 01/01/17 09:10 74 19 101/54 01/01/17 09:00 81 33 H 101/54 01/01/17 08:50 84 25 H 108/62 01/01/17 08:40 83 29 H 95/61 01/01/17 08:30 86 28 H 95/61 01/01/17 08:20 91 21 94/53 01/01/17 08:10 91 40 H 94/53 01/01/17 08:00 98.6 F 93 85 29 H 94/53 01/01/17 07:50 141 H 29 H 71/49 01/01/17 07:40 159 H 13 80/49 01/01/17 07:30 146 H 13 85/53 01/01/17 07:20 144 H 23 71/50 01/01/17 07:10 148 H 9 L 93/54 01/01/17 07:00 173 H 24 82/51 01/01/17 06:53 20 L 01/01/17 06:35 186 H 115/11 01/01/17 06:23 98.8 F 181 H 18 95/51 01/01/17 05:41 98.6 F 120 H 22 115/67 12/31/16 23:55 98.6 F 83 20 97/75 12/31/16 20:40 80 12/31/16 20:31 81 Pulse Ox 01/01/17 19:00 97 01/01/17 18:30 97 01/01/17 18:00 97 01/01/17 17:30 99 01/01/17 17:09 01/01/17 17:00 99 01/01/17 16:30 97 01/01/17 16:00 98 01/01/17 15:30 98 01/01/17 15:00 98 01/01/17 14:30 97 01/01/17 14:19 94 L 01/01/17 14:10 98 01/01/17 14:00 98 01/01/17 13:50 97 01/01/17 13:40 96 01/01/17 13:30 96 01/01/17 13:20 97 01/01/17 13:10 95 01/01/17 13:00 96 01/01/17 12:50 96 01/01/17 12:40 95 01/01/17 12:30 95 01/01/17 12:20 95 01/01/17 12:10 92 L 01/01/17 12:00 93 L 01/01/17 11:50 93 L 01/01/17 11:46 01/01/17 11:40 97 01/01/17 11:30 97 01/01/17 11:28 96 01/01/17 11:27 01/01/17 11:20 95 01/01/17 11:10 95 01/01/17 11:00 94 L 01/01/17 10:50 96 01/01/17 10:40 96 01/01/17 10:30 97 01/01/17 10:20 96 01/01/17 10:10 97 01/01/17 10:00 95 01/01/17 09:50 97 01/01/17 09:40 94 L 01/01/17 09:30 95 01/01/17 09:20 96 01/01/17 09:19 94 L 01/01/17 09:10 97 01/01/17 09:00 96 01/01/17 08:50 96 01/01/17 08:40 96 01/01/17 08:30 95 01/01/17 08:20 91 L 01/01/17 08:10 95 01/01/17 08:00 94 L 01/01/17 07:50 93 L 01/01/17 07:40 93 L 01/01/17 07:30 94 L 01/01/17 07:20 95 01/01/17 07:10 94 L 01/01/17 07:00 95 01/01/17 06:53 01/01/17 06:35 01/01/17 06:23 01/01/17 05:41 94 L 12/31/16 23:55 93 L 12/31/16 20:40 12/31/16 20:31 Intake and Output 01/01/17 01/01/17 01/01/17 06:59 14:59 22:59 Intake Total 100 2745.6 667.4 Output Total 340 280 Balance 100 2405.6 387.4 Intake: IV 2375 375 0.9 NACL 2375 375 Intake, IV Titration 370.6 292.4 Amount Amiodarone 450 mg In 233.1 292.4 Dextrose 5% in Water 250 ml @ 1 MG/MIN 34.53 mls/ hr IV .Q7H31M [facility] Rx#: [id number] Magnesium Sulfate-D5w Pmx 100 1 gm In Dextrose/Water 1 100ml.bag @ 100 mls/hr IVPB ONCE ONE Rx#: [id number] Piperacillin-Tazobactam 3 37.5 .375 gm In Dextrose/Water 1 50ml.bag @ 12.5 mls/hr IVPB Q8HR [facility] Rx#: [id number] Oral 100 Output: Urine 340 280 Other: Voiding Method Diaper Diaper Diaper Incontinent Incontinent Incontinent # Voids 2 2 GENERAL EXAM: Patient is somnolent and appears to be responsive only to repeated stimuli HEENT: Normocephalic. NECK: No masses, no nuchal rigidity. CHEST: No chest wall deformity. LUNGS: [Mr. breath sounds HEART: Regular heart sounds ABDOMEN: No hepatosplenomegaly, normal bowel sounds, no guarding or rigidity. SKIN: No rashes CENTRAL NERVOUS SYSTEM: Deferred EXTREMITIES: No cyanosis, clubbing or edema. Results 01/01/17 06:00 01/01/17 06:00 Cardiac Enzymes 01/01/17 Range/Units 06:00 AST 30 (14-36) U/L CBC 01/01/17 Range/Units 06:00 WBC 10.1 (3.8-10.6) k/uL RBC 3.57 L (3.80-5.40) m/uL Hgb 11.9 (11.4-16.0) gm/dL Hct 36.0 (34.0-46.0) % Plt Count 105 L (150-450) k/uL Comprehensive Metabolic Panel 01/01/17 Range/Units 06:00 Sodium 142 (137-145) mmol/L Potassium 4.7 (3.5-5.1) mmol/L Chloride 110 H (98-107) mmol/L Carbon Dioxide 19 L (22-30) mmol/L BUN 21 H (7-17) mg/dL Creatinine 1.70 H (0.52-1.04) mg/dL Glucose 88 (74-99) mg/dL Calcium 8.3 L (8.4-10.2) mg/dL AST 30 (14-36) U/L ALT 36 (9-52) U/L Alkaline Phosphatase 152 H (38-126) U/L Total Protein 5.7 L (6.3-8.2) g/dL Albumin 2.8 L (3.5-5.0) g/dL Current Medications Generic Name Dose Route Start Last Admin Trade Name Freq PRN Reason Stop Dose Admin Acetaminophen 650 mg 12/31/16 14:21 Tylenol Tab PO Q6H PRN Pain or Fever > 100.5 Albuterol/Ipratropium 3 ml 12/31/16 20:34 Duoneb 0.5 Mg-3 Mg/3 Ml Soln INHALATION RT-QID PRN Shortness Of Breath Or Wheezing Albuterol/Ipratropium 3 ml 01/01/17 08:00 01/01/17 16:59 Duoneb 0.5 Mg-3 Mg/3 Ml Soln INHALATION 3 ml RT-QID HIRA Administration Alprazolam 0.5 mg 01/01/17 05:57 Xanax PO TID PRN Anxiety Artificial Tears 1 drops 12/31/16 14:21 Artificial Tear Drops BOTH EYES Q8H PRN Dry Eye(s) Bisacodyl 10 mg 12/31/16 16:13 Dulcolax RECTAL DAILY PRN Constipation Donepezil HCl 10 mg 01/01/17 09:00 01/01/17 11:01 Aricept PO Not Given DAILY [facility] Enoxaparin Sodium 60 mg 01/02/17 09:00 Lovenox SQ DAILY [facility] Ferrous Sulfate 325 mg 01/01/17 09:00 01/01/17 11:01 Feosol PO Not Given DAILY [facility] Furosemide 40 mg 01/01/17 09:00 01/01/17 11:01 Lasix PO Not Given QAM [facility] Hydrocortisone 1 applic 12/31/16 16:13 Hydrocortisone 1% Cream TOPICAL DAILY PRN Itching Piperacillin/Tazobactam/ 50 mls @ 12.5 mls/hr 12/31/16 16:00 01/01/17 17:17 Dextrose 3.375 gm/ IV Solution IVPB 01/10/17 16:01 12.5 mls/hr Q8HR [facility]IRA Administration Diltiazem HCl 125 mg/ Sodium 125 mls @ 5 mls/hr 01/01/17 06:00 01/01/17 06:26 Chloride IV 5 mg/hr .Q24H HIRA 5 mls/hr 5 MG/HR Administration Amiodarone HCl 450 mg/ 259 mls @ 34.53 mls/hr 01/01/17 07:45 01/01/17 16:17 Dextrose/Water IV 01/02/17 07:46 0.5 mg/min .Q7H31M [facility]A 17.26 mls/hr Protocol Administration 1 MG/MIN Norepinephrine Bitartrate 4 mg in 250 mls @ 0 mls/hr 01/01/17 12:15 Levophed-0.9% Nacl 4 Mg/250ml Pmx IV .Q0M [facility]A Protocol Titrate Lorazepam 0.5 mg 01/01/17 05:55 01/01/17 06:26 Ativan IV 0.5 mg Q6HR PRN Administration Anxiety IF NPO Magnesium Hydroxide 2,400 mg 12/31/16 16:13 Milk Of Magnesia PO DAILY PRN Constipation Miscellaneous Information 1 each 12/31/16 14:19 Pneumonia Protocol Utilized PO ONCE PRN Per Protocol Potassium Chloride 10 meq 01/01/17 09:00 01/01/17 11:01 K-Dur 10 PO Not Given DAILY HIRA Prednisone 5 mg 01/01/17 09:00 01/01/17 11:01 PO Not Given DAILY [facility]A Trazodone HCl 25 mg 12/31/16 21:00 12/31/16 20:12 Desyrel PO 25 mg HS HIRA Administration Intake and Output 01/01/17 01/01/17 01/01/17 06:59 14:59 22:59 Intake Total 100 2745.6 667.4 Output Total 340 280 Balance 100 2405.6 387.4 Intake: IV 2375 375 0.9 NACL 2375 375 Intake, IV Titration 370.6 292.4 Amount Amiodarone 450 mg In 233.1 292.4 Dextrose 5% in Water 250 ml @ 1 MG/MIN 34.53 mls/ hr IV .Q7H31M [facility] Rx#: [id number] Magnesium Sulfate-D5w Pmx 100 1 gm In Dextrose/Water 1 100ml.bag @ 100 mls/hr IVPB ONCE ONE Rx#: [id number] Piperacillin-Tazobactam 3 37.5 .375 gm In Dextrose/Water 1 50ml.bag @ 12.5 mls/hr IVPB Q8HR [facility] Rx#: [id number] Oral 100 Output: Urine 340 280 Other: Voiding Method Diaper Diaper Diaper Incontinent Incontinent Incontinent # Voids 2 2 01/01/17 06:00 01/01/17 06:00 EKG Interpretations (text) Atrial fibrillation with a rapid ventricular response Assessment and Plan (1) Polymorphic ventricular tachycardia Status: Acute (2) Atrial fibrillation with RVR Status: Acute (3) UTI (urinary tract infection) Status: Acute (4) Bilateral pneumonia Status: Acute (5) Aortic stenosis Status: Acute Plan: At this point we'll continue with amiodarone and also with Cardizem. May be able to discontinue Cardizem and start by mouth amiodarone and beta blockers so. Patient also has significant aortic stenosis and possibly this is not a candidate for aortic replacement. Continue with antibiotic therapy. CODE STATUS and the long-term plan to be decided by the family.
[2017-01-01] MEDS ORDERED: HALOPERIDOL LACTATE 5 MG/ML 1 ML VIAL IM PRN (20:36)
[2017-01-01] MEDS: traZODone HCL 50 MG TAB PO SCH (23:33)
[2017-01-02] MEDS: DILTIAZEM 125 MG in SODIUM CHLORIDE 0.9% 100 ML IV SCH (04:36)
[2017-01-02 05:06] LABS: Calcium 7.6 mg/dL (8.4-10.2); Potassium 3.9 mmol/L (3.5-5.1); Total Bilirubin 0.7 mg/dL (0.2-1.3)
[2017-01-02 05:45] LABS: Basophils # (A) 0.1 k/uL (0-0.2); Basophils % (A) 1 %; CH 32.3; CHCM 31.4; Eosinophils # (A) 0.1 k/uL (0-0.7); Eosinophils % (A) 2 %; HCT 33.8 % (34.0-46.0); HDW 2.59; HGB 10.7 gm/dL (11.4-16.0); Hypochromasia Slight; Luc # (Auto) 0.11; Luc % (Auto) 2; Lymphocytes % (A) 13 %; MCH 32.7 pg (25.0-35.0); MCHC 31.5 g/dL (31.0-37.0); MCV 103.6 fL (80.0-100.0); Macrocytosis Slight; Mean Platelet Volume 7.4; Monocytes # (A) 0.3 k/uL (0-1.0); Monocytes % (A) 4 %; Neutrophils # (A) 5.7 k/uL (1.3-7.7); Neutrophils % (A) 79 %; RBC 3.26 m/uL (3.80-5.40); RDW 14.3 % (11.5-15.5); WBC 7.2 k/uL (3.8-10.6); WBC (Perox) 7.36
[2017-01-02] MEDS: IPRATROPIUM-ALBUTEROL 3 ML NEB INHALATION SCH ×4 (07:48→20:36)
--- NOTE | 2017-01-02 09:10 | P.PN ---
Subjective Principal diagnosis: Non-sustained ventricular tachycardia This is an 86-year-old female patient who resides at [facility]. She has a history of severe dementia, aortic stenosis, lupus, osteoporosis, renal failure. She was also recently found to have a urinary tract infection with Proteus mirabilis and was initiated on Bactrim. She was transferred here to the [facility] on 12/31/2016 with a temperature of 101.3 and some altered mental status. She had been seen and evaluated in the emergency room was reported to have bilateral pneumonia, febrile illness and acute dehydration. She was admitted to the hospital for the same. Proximally 5:30 yesterday morning she developed self-limiting ventricular tachycardia. She did not require any defibrillation or CPR. She had been on Levaquin and there was some prolongation of the QT interval. She was transferred here to the intensive care unit and initiated on amiodarone drip. She is seen again today in follow-up in the intensive care unit 01/02/2017. She is more awake and alert. She does have severe dementia and is disoriented to place and time. She has not had any further ventricular tachycardic episodes. She remains on amiodarone at 0.5 mg/m. She did not require any pressor support. His been hemodynamically stable. She is requiring 5 L of high flow nasal cannula to maintain O2 saturations in the low 90s. Maintained on Zosyn. She is on bronchodilators 4 times a day and when necessary. Objective - Vital Signs Vital signs: Vital Signs Temp 97.4 F L 01/01/17 20:00 Pulse 87 01/02/17 08:09 Resp 24 01/02/17 07:00 BP 148/79 01/02/17 07:00 Pulse Ox 92 L 01/02/17 07:48 Intake & Output 01/01/17 01/02/17 01/02/17 18:59 06:59 18:59 Intake Total 3338.0 962.5 Output Total 580 800 Balance 2758.0 162.5 Weight 66.7 kg Intake: IV 2675 900 0.9 NACL 2675 900 Intake, IV Titration 663.0 62.5 Amount Amiodarone 450 mg In 525.5 Dextrose 5% in Water 250 ml @ 1 MG/MIN 34.53 mls/ hr IV .Q7H31M [facility] Rx#: [id number] Magnesium Sulfate-D5w Pmx 100 1 gm In Dextrose/Water 1 100ml.bag @ 100 mls/hr IVPB ONCE ONE Rx#: [id number] Piperacillin-Tazobactam 3 37.5 62.5 .375 gm In Dextrose/Water 1 50ml.bag @ 12.5 mls/hr IVPB Q8HR [facility] Rx#: [id number] Output: Urine 580 800 Other: Voiding Method Diaper Indwelling Catheter Incontinent # Voids 2 - Exam GENERAL EXAM: Alert, comfortable in no apparent distress. HEAD: Normocephalic. EYES: Normal reaction of pupils, equal size. NOSE: Clear with pink turbinates. THROAT: No erythema or exudates. NECK: No masses, no JVD. CHEST: No chest wall deformity. LUNGS: Equal air entry with echoes in the bilateral posterior bases. CVS: S1 and S2 normal with audible murmur, regular rhythm. ABDOMEN: No hepatosplenomegaly, normal bowel sounds, no guarding or rigidity. Extremities: There is no significant peripheral edema. No clubbing, no cyanosis. Peripheral pulses are intact. - Labs CBC & Chem 7: 01/02/17 05:23 01/02/17 04:23 Labs: Abnormal Lab Results - Last 24 Hours (Table) 01/01/17 01/02/17 01/02/17 Range/Units 12:12 04:23 05:23 RBC 3.26 L (3.80-5.40) m/uL Hgb 10.7 L (11.4-16.0) gm/dL Hct 33.8 L (34.0-46.0) % MCV 103.6 H (80.0-100.0) fL Plt Count 111 L (150-450) k/uL Chloride 116 H (98-107) mmol/L Carbon Dioxide 17 L (22-30) mmol/L BUN 18 H (7-17) mg/dL Creatinine 1.30 H (0.52-1.04) mg/dL Glucose 101 H (74-99) mg/dL POC Glucose (mg/dL) 143 H (75-99) mg/dL Calcium 7.6 L (8.4-10.2) mg/dL AST 46 H (14-36) U/L Total Protein 5.0 L (6.3-8.2) g/dL Albumin 2.3 L (3.5-5.0) g/dL Microbiology - Last 24 Hours (Table) 01/01/17 07:00 Urine Culture - Preliminary Urine,Catheterized Assessment and Plan Plan: Impression: #1 Nonsustained ventricular tachycardia requiring amiodarone infusion. #2 Atrial fibrillation with a rapid ventricular response, recovered currently in normal sinus rhythm with PACs. #3. Aortic stenosis. #4 Severe dementia. #5 Urinary tract infection secondary to gram-negative bacilli with recent urinary tract infection Proteus mirabilis treated with Bactrim in the outpatient setting. #6 Lupus. #7 Osteoporosis. #8 Acute renal failure. #9 longterm resident. #10 Poor overall functional performance based on the above mentioned multiple comorbidities. Plan: The patient was seen and evaluated by Dr. Buchanan. She has been stable from the critical care standpoint without any further and regular arrhythmias. Cardiology is on the case and plans to discontinue the amiodarone after oral medication is initiated. She remains off Levaquin. She is a DO NOT RESUSCITATE /DO NOT INTUBATE CODE STATUS. She'll be transferred back to the selective care unit later this morning. We will repeat her chest x-ray. Await final urine culture. Continue Zosyn. We'll continue to follow and make further recommendations based on her clinical status.
[2017-01-02] MEDS: AMIODARONE 450 MG in DEXTROSE 5% IN WATER 250 ML IV SCH ×2 (09:33)
--- NOTE | 2017-01-02 09:46 | P.PN ---
Subjective Principal diagnosis: Polymorphic ventricular tachycardia, pneumonia, severe aortic stenosis This 86-year-old female was admitted with increasing shortness of breath and pneumonia. Patient developed polymorphic V. tach followed by atrial fibrillation with RVR. Patient is treated with IV amiodarone and also Cardizem. Patient converted back to sinus rhythm. Patient seemed to be in moderate respiratory distress. Chest x-ray shows a right-sided effusion and possible infiltrate. Patient is on Zosyn. Her echocardiogram showed evidence of severe aortic stenosis. Patient is felt to be not a good candidate for aortic valve replacement. Patient is being transferred to telemetry unit. We' ll discontinue IV Cardizem. Start her on by mouth amiodarone Objective - Vital Signs Vital signs: Vital Signs Temp 97.4 F L 01/01/17 20:00 Pulse 87 01/02/17 08:09 Resp 24 01/02/17 07:00 BP 148/79 01/02/17 07:00 Pulse Ox 92 L 01/02/17 07:48 Intake & Output 01/01/17 01/02/17 01/02/17 18:59 06:59 18:59 Intake Total 3338.0 962.5 Output Total 580 800 Balance 2758.0 162.5 Weight 66.7 kg Intake: IV 2675 900 0.9 NACL 2675 900 Intake, IV Titration 663.0 62.5 Amount Amiodarone 450 mg In 525.5 Dextrose 5% in Water 250 ml @ 1 MG/MIN 34.53 mls/ hr IV .Q7H31M [facility] Rx#: [id number] Magnesium Sulfate-D5w Pmx 100 1 gm In Dextrose/Water 1 100ml.bag @ 100 mls/hr IVPB ONCE ONE Rx#: [id number] Piperacillin-Tazobactam 3 37.5 62.5 .375 gm In Dextrose/Water 1 50ml.bag @ 12.5 mls/hr IVPB Q8HR [facility] Rx#: [id number] Output: Urine 580 800 Other: Voiding Method Diaper Indwelling Catheter Incontinent # Voids 2 - Exam GENERAL EXAM: Patient is alert , appears weak and frail HEENT: Normocephalic. Normal reaction of pupils, equal size, normal range of extraocular motion. No erythema or exudates in the throat. NECK: No masses, no nuchal rigidity. CHEST: No chest wall deformity. LUNGS: Diminished breath sounds at the right base HEART: S1 and S2 normal . Systolic murmur in the aortic area SKIN: No rashes CENTRAL NERVOUS SYSTEM: No focal deficits. EXTREMITIES: No cyanosis, clubbing or edema. - Labs CBC & Chem 7: 01/02/17 05:23 01/02/17 04:23 Labs: Abnormal Lab Results - Last 24 Hours (Table) 01/01/17 01/02/17 01/02/17 Range/Units 12:12 04:23 05:23 RBC 3.26 L (3.80-5.40) m/uL Hgb 10.7 L (11.4-16.0) gm/dL Hct 33.8 L (34.0-46.0) % MCV 103.6 H (80.0-100.0) fL Plt Count 111 L (150-450) k/uL Chloride 116 H (98-107) mmol/L Carbon Dioxide 17 L (22-30) mmol/L BUN 18 H (7-17) mg/dL Creatinine 1.30 H (0.52-1.04) mg/dL Glucose 101 H (74-99) mg/dL POC Glucose (mg/dL) 143 H (75-99) mg/dL Calcium 7.6 L (8.4-10.2) mg/dL AST 46 H (14-36) U/L Total Protein 5.0 L (6.3-8.2) g/dL Albumin 2.3 L (3.5-5.0) g/dL Microbiology - Last 24 Hours (Table) 01/01/17 07:00 Urine Culture - Preliminary Urine,Catheterized Assessment and Plan (1) Polymorphic ventricular tachycardia Status: Acute (2) Atrial fibrillation with RVR Status: Acute (3) UTI (urinary tract infection) Status: Acute (4) Bilateral pneumonia Status: Acute (5) Aortic stenosis Status: Acute Plan: We'll continue the by mouth amiodarone. IV Cardizem can be discontinued. Continue the diuretics and also antibiotics. Prognosis is guarded
--- NOTE | 2017-01-02 09:53 | XR ---
EXAMINATION TYPE: XR chest 1V portable DATE OF EXAM: 01/02/2017 9:31 AM CLINICAL HISTORY: Difficulty breathing and CHF progress study. TECHNIQUE: Single AP portable upright view of the chest is obtained. COMPARISON: Chest x-ray from one day earlier FINDINGS: Cardiac silhouette size is stable and mildly enlarged with atherosclerotic thoracic aorta and suspected mild central vascular congestion. Retrocardiac opacity consistent with hiatal hernia is redemonstrated. There is chronic parenchymal change with small bilateral pleural effusions. There is slightly more prominent right basilar opacity consistent with atelectasis and/or infiltrate redemons trated. Osseous structures are demineralized. IMPRESSION: Overall stable findings, suspect CHF exacerbation as there is mild cardiomegaly with ce ntral vascular congestion and small bilateral pleural effusions all redemonstrated. There is backgrou nd of chronic parenchymal change with more focal right basilar atelectasis and/or infiltrate also aga in seen.
[2017-01-02] MEDS: ENOXAPARIN 60 MG/0.6 ML SYRINGE SQ SCH (10:11)
[2017-01-02] MEDS ORDERED: AMIODARONE 200 MG TAB PO STA (10:11)
[2017-01-02] MEDS: predniSONE 5 MG TAB PO SCH (10:11)
[2017-01-02] MEDS: FUROSEMIDE 10 MG/ML 4 ML VIAL IV SCH (10:12)
[2017-01-02] MEDS: DONEPEZIL 10 MG TAB PO SCH (10:12)
[2017-01-02] MEDS: POTASSIUM CHLORIDE ER 10 MEQ TAB.ER.PRT PO SCH (10:12)
[2017-01-02] MEDS: FERROUS SULFATE 325 MG TAB PO SCH (10:12)
[2017-01-02] MEDS ORDERED: Potassium Replacement Protocol 1 EACH MISC MISCELLANE PRN (10:14)
[2017-01-02] MEDS: PIPERACILLIN-TAZOBACTAM 3.375 GM in DEXTROSE/WATER 1 50ML.BAG IVPB SCH ×3 (10:20→23:22)
[2017-01-02] MEDS ORDERED: WATER IV SCH (10:45)
[2017-01-02] MEDS ORDERED: DEXTROSE 5% IV SCH (10:45)
[2017-01-02] MEDS ORDERED: SODIUM BICARB IV SCH (10:45)
[2017-01-02] MEDS: POTASSIUM CHLORIDE 10 MEQ, LIDOCAINE 2% INJ 10 MG in SODIUM CHLORIDE 0.9% 100 ML IV SCH ×2 (11:16→12:46)
--- NOTE | 2017-01-02 11:32 | P.PN ---
Subjective This is a 86-year-old female from [facility] who presented with fever and decrease in mentation. She does have a known history of dementia. She is found to have a UTI and pneumonia and started on Levaquin. Initially patient admitted to regular medical floor. When into atrial fibrillation with rapid ventricular response and sent to [facility]. Then she developed nonsustained ventricular tachycardia. CODE BLUE was called she did not require any CPR. She was transferred to the ICU. She had been on Levaquin and there was prolongation of the QT interval. She was evaluated by cardiology and pulmonary service. She did require amiodarone drip and Cardizem drip. She is currently off of these drips and started on oral amiodarone. And she is also been placed on IV Lasix. She's been cleared from consulting physicians to be transferred out of the ICU to [facility]. Patient lying in bed comfortably more alert today. Currently on Zosyn for IV antibiotic coverage. Denies any chest pain or shortness of breath. Denies any nausea or vomiting. Objective - Vital Signs Vital signs: Vital Signs Temp 98.5 F 01/02/17 08:00 Pulse 84 01/02/17 10:00 Resp 25 H 01/02/17 10:00 BP 129/91 01/02/17 10:00 Pulse Ox 91 L 01/02/17 10:00 Intake & Output 01/01/17 01/02/17 01/02/17 18:59 06:59 18:59 Intake Total 3338.0 962.5 275 Output Total 580 800 275 Balance 2758.0 162.5 0 Weight 66.7 kg Intake: IV 2675 900 225 0.9 NACL 2675 900 225 Intake, IV Titration 663.0 62.5 50 Amount Amiodarone 450 mg In 525.5 Dextrose 5% in Water 250 ml @ 1 MG/MIN 34.53 mls/ hr IV .Q7H31M [facility] Rx#: [id number] Magnesium Sulfate-D5w Pmx 100 1 gm In Dextrose/Water 1 100ml.bag @ 100 mls/hr IVPB ONCE ONE Rx#: [id number] Piperacillin-Tazobactam 3 37.5 62.5 50 .375 gm In Dextrose/Water 1 50ml.bag @ 12.5 mls/hr IVPB Q8HR [facility] Rx#: [id number] Output: Urine 580 800 275 Other: Voiding Method Diaper Indwelling Catheter Incontinent # Voids 2 - Exam Head normocephalic Neck supple Lungs clear to auscultation bilaterally no wheezing or crackles Heart regular rate and rhythm S1-S2, no rub or gallop positive murmur Abdomen is soft nontender nondistended positive bowel sounds no hepatosplenomegaly Extremities no edema Neuro awake and alert. Confused. - Labs CBC & Chem 7: 01/02/17 05:23 01/02/17 04:23 Labs: Abnormal Lab Results - Last 24 Hours (Table) 01/01/17 01/02/17 01/02/17 Range/Units 12:12 04:23 05:23 RBC 3.26 L (3.80-5.40) m/uL Hgb 10.7 L (11.4-16.0) gm/dL Hct 33.8 L (34.0-46.0) % MCV 103.6 H (80.0-100.0) fL Plt Count 111 L (150-450) k/uL Chloride 116 H (98-107) mmol/L Carbon Dioxide 17 L (22-30) mmol/L BUN 18 H (7-17) mg/dL Creatinine 1.30 H (0.52-1.04) mg/dL Glucose 101 H (74-99) mg/dL POC Glucose (mg/dL) 143 H (75-99) mg/dL Calcium 7.6 L (8.4-10.2) mg/dL AST 46 H (14-36) U/L Total Protein 5.0 L (6.3-8.2) g/dL Albumin 2.3 L (3.5-5.0) g/dL Microbiology - Last 24 Hours (Table) 01/01/17 07:00 Urine Culture - Preliminary Urine,Catheterized Gram Neg Bacilli Assessment and Plan Plan: 1. Bilateral pneumonia: Continue Zosyn. Pulmonary following 2. UTI with urine culture growing gram-negative bacilli: Continue Zosyn. Recent UTI with Proteus mirabilis treated with Bactrim and outpatient setting 3. Sepsis on admission likely related to UTI and pneumonia. 4. Bacteremia with blood cultures growing gram-positive cocci in pairs and chains. Consult infectious disease 5. Nonsustained ventricular tachycardia: Cardiology is discontinued the amiodarone drip. Start patient on oral amiodarone 6. Atrial fibrillation with rapid ventricular response: Currently in normal sinus rhythm with PACs. Cardizem drip discontinued by cardiology 7. Severe aortic stenosis noted on echo. Cardiology feels is not a good candidate for aortic valve replacement 8. Acute on chronic kidney disease: Stage 3. Kidney function improving creatinine 1.30. Continue to monitor 9. Severe dementia 10. Acute diastolic CHF exacerbation: Echo shows an EF of 55-60%. Chest x-ray showing evidence of fluid overload. Pulmonary service started patient on Lasix 40 mg IV daily. 11. Acute metabolic encephalopathy secondary to pneumonia and UTI Patient will be transferred to [facility] today.
--- NOTE | 2017-01-02 14:55 | CDI ---
In responding to this query, please exercise your independent professional judgment. The [facility] Coding Staff and Clinical Documentation Specialists appreciate your assistance in clarifying documentation, maintaining compliance with coding guidelines, accurately documenting patients condition and capturing severity of illness. The fact that a question is asked does not imply that any particular answer is desired or expected. Communication forms are a method of clarifying documentation and are not made part of the Legal Health Record. Thank you in advance for your clarification. Last Revision, July 2015 Chhaya Patten [address] [facility] [place] [address] Documentation Clarification Form Date: 01/02/2017 2:38:00 PM From: Merline Burleson RN, CCDS Admit Date: 12/31/2016 2:19:00 PM Patient Name: Diana Cabezas Visit Number: [id number] Dr. Pedro Buchanan/ Argenis Malone [employer] ANALYST History/Risk Factors: Dementia, renal disease, UTI, lupus, anemia Clinical Indicators: 01/02 Attending Progress Note: "Bilateral pneumonia: Continue Zosyn. Pulmonary following 2. UTI with urine culture growing gram-negative bacilli: Continue Zosyn. Recent UTI with Proteus mirabilis treated with Bactrim and outpatient setting 3. Sepsis on admission likely related to UTI and pneumonia. 4. Bacteremia with blood cultures growing gram-positive cocci in pairs and chains. Consult infectious disease." WBC: 6.2/10.1/7.2 Left shift: 5/7.6/5.7 01/02 CXR:"suspect CHF exacerbation as there is mild cardiomegaly with central vascular congestion and small bilateral pleural effusions all redemonstrated. There is background of chronic parenchymal change with more focal right basilar atelectasis and/or infiltrate also again seen." 01/01 H&P: Lung/Breathing assessment: "Chest exam reveals crackles in both lung ling no wheezing." Treatment: Antibiotics: Levaquin 750 mg IVPB x1, Zosyn 3.375gm IVPB Q 12 hrs O2: 5L nasal cannula Breathing Tx: Duoneb QID & PRN SOB PRN In order to capture the severity of condition, please clarify if the condition signifies and you are treating for: Aspiration Pneumonia, identify if: Due to solids or liquids Bacterial Pneumonia, specify causal organism (if known) Gram Negative Pneumonia Due to Strep Due to Staph Due to E. coli Other bacteria (specify) Viral Pneumonia, specify casual organism (if known) Ventilator Associated Pneumonia Healthcare Acquired Pneumonia/Pneumonia, unspecified Unable to determine Link any associated conditions to the pneumonia: Influenza with secondary gram negative pneumonia Sepsis due to pneumonia Acute respiratory failure due to pneumonia Other, please specify Please document in your progress notes and discharge summary in order to capture severity of illness and risk of mortality. Include clinical findings that support your diagnosis. FYI: Press F11 to launch patient chart. Place X here if this finding has no clinical significance, is not applicable or if you are not able to provide any additional documentation. MARI
--- NOTE | 2017-01-02 15:08 | CDI ---
In responding to this query, please exercise your independent professional judgment. The [facility] Coding Staff and Clinical Documentation Specialists appreciate your assistance in clarifying documentation, maintaining compliance with coding guidelines, accurately documenting patients condition and capturing severity of illness. The fact that a question is asked does not imply that any particular answer is desired or expected. Communication forms are a method of clarifying documentation and are not made part of the Legal Health Record. Thank you in advance for your clarification. Last Revision, July 2015 Chhaya Patten [address] [facility] [place] [address] Documentation Clarification Form Date: 01/02/2017 2:56:00 PM From: Merline Burleson RN, CCDS Admit Date: 12/31/2016 2:19:00 PM Patient Name: Diana Cabezas Visit Number: [id number] Dr. Kale Peter/ Jazz Shipley DNP Atrial fibrillation is documented in the H&P and Progress Notes History/Risk Factors: Fever, elevated hr that improved with fluid bolus by EMS, UTI, aortic stenosis, lupus Clinical Indicators: 01/01 H&P: "A few hours later patient developed an episode of atrial fibrillation with rapid ventricular response heart rate was up to 200, blood pressure was low, and at that time repeat lactic acid was elevated at 5 she was given IV fluids she was started on IV Cardizem drip she was started on Lovenox subcu and was transferred to telemetry, subsequence the patient had cardiac arrest with an episode of V. tach she did not require any chest compression she was transferred to intensive care unit she was started on IV Cordarone, Levaquin was discontinued she was started on IV Zosyn, blood culture and urine culture and sputum culture were ordered. Plan: #4 atrial fibrillation with rapid ventricular response #5 nonsustained V. tach." Telemetry: NSR per nursing assessments Treatment: IV Amio Drip weaned to 200mg PO BID, Cardizem drip Consults: Cardiology, Pulmonary In your professional opinion, can you please clarify the type of atrial fibrillation, if known? Chronic/Permanent Paroxysmal Persistent Other, please specify Unable to determine Please document in your progress notes and discharge summary in order to capture severity of illness and risk of mortality. Include clinical findings that support your diagnosis. FYI: Press F11 to launch patient chart Place X here if this finding has no clinical significance, is not applicable or if you are not able to provide any additional documentation. MTDD
--- NOTE | 2017-01-02 15:18 | CDI ---
In responding to this query, please exercise your independent professional judgment. The [facility] Coding Staff and Clinical Documentation Specialists appreciate your assistance in clarifying documentation, maintaining compliance with coding guidelines, accurately documenting patients condition and capturing severity of illness. The fact that a question is asked does not imply that any particular answer is desired or expected. Communication forms are a method of clarifying documentation and are not made part of the Legal Health Record. Thank you in advance for your clarification. Last Revision, July 2015 Chhaya Patten [address] [facility] [place] [address] Documentation Clarification Form Date: 01/02/2017 3:10:00 PM From: Merline Burleson RN, CCDS Admit Date: 12/31/2016 2:19:00 PM Patient Name: Diana Cabezas Visit Number: [id number] Dr. Teresa Dickens/ Toña Walker PAC History/Risk Factors : PMH of renal disease, ARF with rhabdo this admission Clinical Indicators : Current BUN: CR: 1.59/1.7/1.3 GFR: 31//39 12/07/16 Patients Baseline: BUN/CR/GFR: 27/1./40 Treatment: IVF: 300 cc bolus by EMS, 1L IVF Bolus In order to capture the severity of condition, please clarify if the condition signifies: CKD Stage 1 (GFR > 90) CKD Stage 2 (GFR 60-89) CKD Stage 3 (GFR 30-59) CKD Stage 4 (GFR 15-29) CKD Stage 5 (GFR <15) ESRD Unable to determine Other condition, please specify Please document in your progress notes and discharge summary in order to capture severity of illness and risk of mortality. Include clinical findings that support your diagnosis. FYI: Press F11 to launch patient chart. Place X here if this finding has no clinical significance, is not applicable or if you are not able to provide any additional documentation. MARI
[2017-01-02] MEDS: AMIODARONE 200 MG TAB PO SCH (18:37)
[2017-01-02] MEDS: traZODone HCL 50 MG TAB PO SCH (21:24)
[2017-01-03] MEDS: FUROSEMIDE 40 MG TAB PO SCH (00:34)
[2017-01-03] MEDS ORDERED: DEXTROSE 5% IN WATER 1,000 ML with SODIUM ACETATE 150 MEQ IV SCH (04:00)
[2017-01-03 06:45] LABS: Calcium 7.5 mg/dL (8.4-10.2); Potassium 3.4 mmol/L (3.5-5.1); Total Bilirubin 0.8 mg/dL (0.2-1.3); Total Protein 5.1 g/dL (6.3-8.2)
[2017-01-03 06:52] LABS: Basophils % (A) 1 %; CH 32.6; CHCM 33.3; Eosinophils # (A) 0.1 k/uL (0-0.7); Eosinophils % (A) 1 %; HDW 2.64; HGB 9.9 gm/dL (11.4-16.0); Luc # (Auto) 0.15; Luc % (Auto) 3; Lymphocytes # (A) 1.6 k/uL (1.0-4.8); Lymphocytes % (A) 27 %; MCH 32.4 pg (25.0-35.0); MCHC 32.9 g/dL (31.0-37.0); Mean Platelet Volume 7.2; Monocytes # (A) 0.4 k/uL (0-1.0); Monocytes % (A) 6 %; Neutrophils # (A) 3.7 k/uL (1.3-7.7); Neutrophils % (A) 62 %; RBC 3.04 m/uL (3.80-5.40); RDW 14.4 % (11.5-15.5); WBC (Perox) 6.26
[2017-01-03 06:54] LABS: MCV 98.5 fL (80.0-100.0)
[2017-01-03] MEDS ORDERED: WATER IV SCH ×3 (07:00)
[2017-01-03] MEDS ORDERED: DEXTROSE 5% IV SCH ×3 (07:00)
[2017-01-03] MEDS ORDERED: SODIUM ACETATE IV SCH ×3 (07:00)
[2017-01-03] MEDS ORDERED: [UNRECOGNIZED DRUG - OTHER] IV SCH ×3 (07:00)
--- NOTE | 2017-01-03 07:36 | XR ---
EXAMINATION TYPE: XR chest 1V DATE OF EXAM: 01/03/2017 7:31 AM HISTORY: Shortness of breath. COMPARISON: 01/02/2017 TECHNIQUE: Single view of the chest is submitted. FINDINGS: Demonstrated are scattered senescent parenchymal change. Scattered airspace infiltrates within the right upper lobe as well as the right lower lobe persists. Suspect left basilar atelectasis and/or pleural effusions. The heart is stable. Hilar and mediastinal structures are within normal limits. Degenerative changes are seen of the dorsal spine. IMPRESSION: 1. Stable chest.
[2017-01-03] MEDS ORDERED: POTASSIUM CHLORIDE ER 20 MEQ TAB.ER PO SCH ×2 (08:00→13:00)
[2017-01-03] MEDS: IPRATROPIUM-ALBUTEROL 3 ML NEB INHALATION SCH ×4 (08:35→21:05)
[2017-01-03] MEDS: AMIODARONE 200 MG TAB PO SCH ×2 (08:54→18:56)
[2017-01-03] MEDS: ENOXAPARIN 60 MG/0.6 ML SYRINGE SQ SCH (08:55)
[2017-01-03] MEDS: POTASSIUM CHLORIDE ER 10 MEQ TAB.ER.PRT PO SCH (08:55)
[2017-01-03] MEDS: DONEPEZIL 10 MG TAB PO SCH (08:55)
[2017-01-03] MEDS: FUROSEMIDE 10 MG/ML 4 ML VIAL IV SCH (08:55)
[2017-01-03] MEDS: predniSONE 5 MG TAB PO SCH (08:55)
[2017-01-03] MEDS: FERROUS SULFATE 325 MG TAB PO SCH (08:55)
--- NOTE | 2017-01-03 09:27 | CONS ---
DATE OF CONSULTATION: 01/02/2017 Reason for consultation is bacteremia. HISTORY OF PRESENT ILLNESS: The patient is an 86-year-old female was brought in to the ER at [facility] on 12/31/2016 with the chief complaints of decreased level of consciousness and a fever. She was noticed to have a fever of 101 degrees Fahrenheit with significantly positive UA and no history of any nausea, vomiting or diarrhea. The patient was hypotensive, hence she was given bolus on the way to the hospital. She was evaluated and chest x-ray shows some bibasilar infiltrate. Patient with a fever of 101.8 and she has significantly positive UA. Patient had been started on Levaquin for her urinary tract infection. The patient subsequently went afebrile with diarrhea, followed by an episode of ventricular tachycardia. For that, patient has been transferred to the ICU. She was started on amiodarone drip, Levaquin was discontinued. She was treated with the Zosyn. The patient did have overall improvement and has been transferred out of ICU this morning. Her blood cultures came up positive. Hence, ID was consulted for further recommendation. The patient did have underlying dementia for which she was unable to provide any history and unfortunately she was unable to provide any history; however, now specifically for morbidity question. Most of the answers were no but no nausea, vomiting or diarrhea has been recorded. REVIEW OF SYSTEMS: Could not be reliably obtained but the positive one has been mentioned in the HPI. Past medical history significant for dementia, altered triglycerides, recurrent UTI's. PAST SURGICAL HISTORY: No major surgery. SOCIAL HISTORY: No history of smoking, drinking or drug use. Resident of [facility]. FAMILY HISTORY: No pertinent findings on the chart. Allergies to RIVASTIGMINE. Medications include the patient is currently on Tylenol, DuoNeb, Xanax, amiodarone, Dulcolax, Aricept, Lovenox, iron sulfate, Lasix, Ativan, Zosyn, Desyrel, and prednisone. On examination, blood pressure is 95/50 with a pulse of 76, temperature 99. She is 94% on room air. GENERAL DESCRIPTION is an elderly female, lying in bed, in no distress. No tachypnea or accessory muscles for respiration use. HEENT EXAMINATION: Pallor. No scleral icterus. Oral mucous membrane dry. NECK: Trachea central. No thyromegaly. LUNGS: Unlabored breathing with decreased breath sounds at base. No wheeze. HEART: S1, S2, regular rate and rhythm. ABDOMEN: Soft, no tenderness. EXTREMITIES: No edema of the feet. SKIN EXAMINATION: No rash or mass palpable. NEUROLOGICAL: Patient responds to name here and there. Was unable to provide any other information to determine here orientation. LABS: Hemoglobin is 10.7, white count is 7.2 with a BUN of 18, creatinine is 1.30. There has been positive ascites with urine on 2 WBC. Urine is showing a gram-negative bacilli. Blood cultures with coagulase negative Staph and hemolytic Streptococcus. Chest x-ray with bibasilar infiltrate, repeat showing more of the procedure in the peritoneum. DIAGNOSTIC IMPRESSION AND PLAN: 1. Patient with a positive blood culture with gram positive bacilli and as well as coagulase negative staphylococcus, leading more towards the contamination as the patient not having the clinical features to along with it and not corresponding to urinary tract infection. 2. Patient with a fever, source is likely gram-negative urinary tract infection. PLAN: 1. Blood cultures will be repeated to make sure there is no evidence of persistent bacteremia and to document initial blood pressure culture as a contamination. 2. Zosyn to continue while awaiting for the final ID and the gram-negative urine. 3. Will follow up on the clinical condition and cultures to further adjust medications if needed. Thank you for this consultation. Will follow this patient along with you. MARI
[2017-01-03] MEDS: PIPERACILLIN-TAZOBACTAM 3.375 GM in DEXTROSE/WATER 1 50ML.BAG IVPB SCH ×3 (10:26→23:16)
--- NOTE | 2017-01-03 13:04 | P.PN ---
Subjective Principal diagnosis: Non-sustained ventricular tachycardia This is an 86-year-old female patient who resides at [facility]. She has a history of severe dementia, aortic stenosis, lupus, osteoporosis, renal failure. She was also recently found to have a urinary tract infection with Proteus mirabilis and was initiated on Bactrim. She was transferred here to the [facility] on 12/31/2016 with a temperature of 101.3 and some altered mental status. She had been seen and evaluated in the emergency room was reported to have bilateral pneumonia, febrile illness and acute dehydration. She was admitted to the hospital for the same. Proximally 5:30 yesterday morning she developed self-limiting ventricular tachycardia. She did not require any defibrillation or CPR. She had been on Levaquin and there was some prolongation of the QT interval. She was transferred here to the intensive care unit and initiated on amiodarone drip. She is seen again today in follow-up in the intensive care unit 01/02/2017. She is more awake and alert. She does have severe dementia and is disoriented to place and time. She has not had any further ventricular tachycardic episodes. She remains on amiodarone at 0.5 mg/m. She did not require any pressor support. His been hemodynamically stable. She is requiring 5 L of high flow nasal cannula to maintain O2 saturations in the low 90s. Maintained on Zosyn. She is on bronchodilators 4 times a day and when necessary. The patient is seen again today 01/03/2017 in follow-up on the selective care unit. She is somewhat more lethargic today as compared to yesterday, not as alert and interactive. She did have a T-max of 101.0 this morning. Urine cultures positive for Proteus mirabilis. Her heart remains regular no further sustained VT episodes. She is maintaining O2 saturations in the 90s on room air. Her bicarb has improved to 23. Her chest x-ray is stable however continues to show scattered airspace infiltrates in the right upper and lower lobes as well as some left basilar atelectasis. Objective - Vital Signs Vital signs: Vital Signs Temp 100 F H 01/03/17 11:06 Pulse 76 01/03/17 12:20 Resp 12 01/03/17 12:15 BP 145/75 01/03/17 12:15 Pulse Ox 92 L 01/03/17 12:15 Intake & Output 01/02/17 01/03/17 01/03/17 18:59 06:59 18:59 Intake Total 425 950 Output Total 335 1200 Balance 90 -250 Weight 71.5 kg Intake: IV 225 950 0.9 NACL 225 Dextrose 5% in Water 1, 800 000 ml @ 50 mls/hr IV . [id number] [facility] with Sodium Acetate 150 meq with Water For Injection, Sterile 25 ml Rx#: [id number] Piperacillin-Tazobactam 3 150 .375 gm In Dextrose/Water 1 50ml.bag @ 12.5 mls/hr IVPB Q8HR [facility] Rx#: [id number] Intake, IV Titration 200 Amount Dextrose 5% in Water 700 50 ml @ 50 mls/hr IV .Q20H [facility]A with Sodium Bicarb (0 .5 Meq/ml) 300 ml Rx#: [id number] Piperacillin-Tazobactam 3 50 .375 gm In Dextrose/Water 1 50ml.bag @ 12.5 mls/hr IVPB Q8HR [facility] Rx#: [id number] Potassium Chloride 10 meq 100 Lidocaine 2% Inj 10 mg In Sodium Chloride 0.9% 100 ml @ 100 mls/hr IV Q1HR [facility] Rx#:[id number] Output: Urine 335 1200 Other: Voiding Method Indwelling Catheter Indwelling Catheter Indwelling Catheter # Voids 3 - Exam GENERAL EXAM: Drowsy, in no apparent distress. HEAD: Normocephalic. EYES: Normal reaction of pupils, equal size. NOSE: Clear with pink turbinates. THROAT: No erythema or exudates. NECK: No masses, no JVD. CHEST: No chest wall deformity. LUNGS: Equal air entry with echoes in the bilateral posterior bases. CVS: S1 and S2 normal with audible murmur, regular rhythm. ABDOMEN: No hepatosplenomegaly, normal bowel sounds, no guarding or rigidity. Extremities: There is no significant peripheral edema. No clubbing, no cyanosis. Peripheral pulses are intact. - Labs CBC & Chem 7: 01/03/17 06:14 01/03/17 11:11 Labs: Abnormal Lab Results - Last 24 Hours (Table) 01/03/17 01/03/17 Range/Units 06:14 06:14 RBC 3.04 L (3.80-5.40) m/uL Hgb 9.9 L (11.4-16.0) gm/dL Hct 30.0 L (34.0-46.0) % Plt Count 136 L (150-450) k/uL Potassium 3.4 L (3.5-5.1) mmol/L Chloride 112 H (98-107) mmol/L Creatinine 1.49 H (0.52-1.04) mg/dL Glucose 107 H (74-99) mg/dL Calcium 7.5 L (8.4-10.2) mg/dL Total Protein 5.1 L (6.3-8.2) g/dL Albumin 2.3 L (3.5-5.0) g/dL Microbiology - Last 24 Hours (Table) 01/01/17 07:00 Urine Culture - Final Urine,Catheterized Proteus mirabilis Assessment and Plan Plan: Impression: #1 Nonsustained ventricular tachycardia requiring amiodarone infusion. #2 Atrial fibrillation with a rapid ventricular response, recovered currently in normal sinus rhythm with PACs. #3 Aortic stenosis. #4 Severe dementia. #5 Urinary tract infection secondary to gram-negative bacilli with recent urinary tract infection Proteus mirabilis treated with Bactrim in the outpatient setting. #6 Lupus. #7 Osteoporosis. #8 Acute renal failure. #9 [facility] resident. #10 Poor overall functional performance based on the above mentioned multiple comorbidities. Plan: The patient was seen and evaluated by Dr. Buchanan. Her chest x-ray remains stable. She is maintaining O2 saturations in the 90s on room air. However, her overall prognosis remains quite guarded. She is a DO NOT RESUSCITATE/DO NOT INTUBATE CODE STATUS. Continue Zosyn which the Proteus mirabilis is sensitive to. We'll continue to follow and make further recommendations based on her clinical status.
[2017-01-03] MEDS ORDERED: IV VANCOMYCIN PER PHARMACY 1 EACH MISC MISCELLANE PRN (13:16)
[2017-01-03] MEDS ORDERED: VANCOMYCIN 1,500 MG in SODIUM CHLORIDE 0.9% 250 ML IVPB ONE (14:00)
--- NOTE | 2017-01-03 15:09 | PN ---
DATE OF SERVICE: 01/03/2017 Reason for follow up is bacteremia and urinary tract infection. INTERVAL HISTORY: The patient did spike another fever this morning of 101 degrees Fahrenheit. The patient currently lower temperature of 100. The patient remained to be sleepy and slightly lethargic. She was unable to provide any reliable history. No nausea, no vomiting has been noticed or any significant diarrhea. On examination, blood pressure is 145/75 with a pulse of 70, temperature of 100. She is 92% on room air. General description is an elderly female, lying in bed in no distress. RESPIRATORY SYSTEM: Unlabored breathing with decreased breath sounds at the base. No wheeze. HEART: S1, S2, regular rate and rhythm. ABDOMEN: Soft, no tenderness. LABS: Hemoglobin 9.9, white count 6.0, BUN of 14 with a creatinine of 1.49. Blood culture with coagulase-negative staph and alpha hemolytic Streptococcus. Urinary proteus mirabilis sensitive to the Zosyn, the patient is already on. DIAGNOSTIC IMPRESSION AND PLAN: 1. Patient with Proteus mirabilis urinary tract infection. She is currently covered with Zosyn to continue as we were consulted for possible pneumonia. Hopeful to finish therapy with oral antibiotic. 2. Patient now with a new fever with the blood culture also show alpha hemolytic Streptococcus. Blood pressure has been repeated. Will start the patient on vancomycin, pharmacy to dose while awaiting for the culture to finalize. Continue supportive care.
--- NOTE | 2017-01-03 15:26 | P.PN ---
Subjective This is a 86-year-old female who lives [facility] was brought in with the elevated fever and feeling tired. In the emergency room patient was found to have evidence of bilateral infiltrates and also evidence of urinary tract infection. Patient was started on IV antibiotics including Levaquin and was admitted to the floor. Patient developed episodes of polymorphic ventricular tachycardia. Patient was subsequent transferred to intensive care unit. Subsequently she was noted to have atrial fibrillation with rapid ventricular response. Again last evening patient had an episode of atrial fibrillation, this morning she remains in normal sinus rhythm. She also had a temperature of 101. Blood cultures gram positive cocci in chains and pairs. She and is currently on oral amiodarone. He is not currently on a beta fredi, the blood pressure originally was running in the 90s systolic. Her blood pressure today is up in the 130s to 140s systolic. We will add a small dose of beta fredi to her medication regime. Objective - Vital Signs Vital signs: Vital Signs Temp 99.6 F 01/03/17 13:58 Pulse 76 01/03/17 12:20 Resp 12 01/03/17 12:15 BP 145/75 01/03/17 12:15 Pulse Ox 92 L 01/03/17 12:15 Intake & Output 01/02/17 01/03/17 01/03/17 18:59 06:59 18:59 Intake Total 425 950 Output Total 335 1200 Balance 90 -250 Weight 71.5 kg Intake: IV 225 950 0.9 NACL 225 Dextrose 5% in Water 1, 800 000 ml @ 50 mls/hr IV . [id number] [facility]IRA with Sodium Acetate 150 meq with Water For Injection, Sterile 25 ml Rx#: [id number] Piperacillin-Tazobactam 3 150 .375 gm In Dextrose/Water 1 50ml.bag @ 12.5 mls/hr IVPB Q8HR [facility] Rx#: [id number] Intake, IV Titration 200 Amount Dextrose 5% in Water 700 50 ml @ 50 mls/hr IV .Q20H [facility] with Sodium Bicarb (0 .5 Meq/ml) 300 ml Rx#: [id number] Piperacillin-Tazobactam 3 50 .375 gm In Dextrose/Water 1 50ml.bag @ 12.5 mls/hr IVPB Q8HR [facility] Rx#: [id number] Potassium Chloride 10 meq 100 Lidocaine 2% Inj 10 mg In Sodium Chloride 0.9% 100 ml @ 100 mls/hr IV Q1HR [facility] Rx#:[id number] Output: Urine 335 1200 Other: Voiding Method Indwelling Catheter Indwelling Catheter Indwelling Catheter # Voids 3 - Exam PHYSICAL EXAMINATION: HEENT: Head is atraumatic, normocephalic. Pupils equal, round. Neck is supple. There is no elevated jugular venous pressure. HEART EXAMINATION: Heart S1, S2 normal. No murmur or gallop heard. CHEST EXAMINATION: Lungs reveal diminished breath sounds bilaterally. ABDOMEN: Soft, nontender. Bowel sounds are heard. No organomegaly noted. EXTREMITIES: 2+ peripheral pulses with no evidence of peripheral edema and no calf tenderness noted. NEUROLOGIC patient is awake, alert and oriented -3. . - Labs CBC & Chem 7: 01/03/17 06:14 01/03/17 11:11 Labs: Abnormal Lab Results - Last 24 Hours (Table) 01/03/17 01/03/17 Range/Units 06:14 06:14 RBC 3.04 L (3.80-5.40) m/uL Hgb 9.9 L (11.4-16.0) gm/dL Hct 30.0 L (34.0-46.0) % Plt Count 136 L (150-450) k/uL Potassium 3.4 L (3.5-5.1) mmol/L Chloride 112 H (98-107) mmol/L Creatinine 1.49 H (0.52-1.04) mg/dL Glucose 107 H (74-99) mg/dL Calcium 7.5 L (8.4-10.2) mg/dL Total Protein 5.1 L (6.3-8.2) g/dL Albumin 2.3 L (3.5-5.0) g/dL Microbiology - Last 24 Hours (Table) 01/01/17 07:00 Urine Culture - Final Urine,Catheterized Proteus mirabilis Assessment and Plan (1) Paroxysmal a-fib Status: Acute (2) UTI (urinary tract infection) Status: Acute (3) Aortic stenosis Status: Acute (4) Pneumonia Status: Acute (5) Polymorphic ventricular tachycardia Status: Acute
[2017-01-03 15:58] LABS: Glucose,Whole Blood 125 mg/dL (75-99)
--- NOTE | 2017-01-03 16:59 | P.PN ---
Subjective Principal diagnosis: Bilateral pneumonia Patient is an 86-year-old female admitted to [facility] with severe shortness of breath chest x-ray revealed evidence of bilateral pneumonia initially she was admitted to intensive care unit currently she is on telemetry floor. Objective - Vital Signs Vital signs: Vital Signs Temp 99.6 F 01/03/17 13:58 Pulse 76 01/03/17 12:20 Resp 12 01/03/17 12:15 BP 145/75 01/03/17 12:15 Pulse Ox 92 L 01/03/17 12:15 Intake & Output 01/02/17 01/03/17 01/03/17 18:59 06:59 18:59 Intake Total 425 950 500 Output Total 335 1200 Balance 90 -250 500 Weight 71.5 kg Intake: IV 225 950 500 0.9 NACL 225 Dextrose 5% in Water 1, 800 400 000 ml @ 50 mls/hr IV . [id number] HIRA with Sodium Acetate 150 meq with Water For Injection, Sterile 25 ml Rx#: [id number] Piperacillin-Tazobactam 3 150 100 .375 gm In Dextrose/Water 1 50ml.bag @ 12.5 mls/hr IVPB Q8HR [facility] Rx#: [id number] Intake, IV Titration 200 Amount Dextrose 5% in Water 700 50 ml @ 50 mls/hr IV .Q20H [facility] with Sodium Bicarb (0 .5 Meq/ml) 300 ml Rx#: [id number] Piperacillin-Tazobactam 3 50 .375 gm In Dextrose/Water 1 50ml.bag @ 12.5 mls/hr IVPB Q8HR [facility] Rx#: [id number] Potassium Chloride 10 meq 100 Lidocaine 2% Inj 10 mg In Sodium Chloride 0.9% 100 ml @ 100 mls/hr IV Q1HR [facility] Rx#:[id number] Output: Urine 335 1200 Other: Voiding Method Indwelling Catheter Indwelling Catheter Indwelling Catheter # Voids 3 3 - Exam HEENT head normocephalic and atraumatic Neck is supple no JVD no goiter no lymphadenopathy Chest exam reveals a crackles in both lung ling no wheezing Cardiac exam reveals regular heart sounds no murmurs Abdomen is soft nontender no organomegaly Extremity exam reveals no edema no cyanosis or clubbing - Labs CBC & Chem 7: 01/03/17 06:14 01/03/17 11:11 Labs: Abnormal Lab Results - Last 24 Hours (Table) 01/03/17 01/03/17 01/03/17 Range/Units 06:14 06:14 15:53 RBC 3.04 L (3.80-5.40) m/uL Hgb 9.9 L (11.4-16.0) gm/dL Hct 30.0 L (34.0-46.0) % Plt Count 136 L (150-450) k/uL Potassium 3.4 L (3.5-5.1) mmol/L Chloride 112 H (98-107) mmol/L Creatinine 1.49 H (0.52-1.04) mg/dL Glucose 107 H (74-99) mg/dL POC Glucose (mg/dL) 125 H (75-99) mg/dL Calcium 7.5 L (8.4-10.2) mg/dL Total Protein 5.1 L (6.3-8.2) g/dL Albumin 2.3 L (3.5-5.0) g/dL Microbiology - Last 24 Hours (Table) 01/01/17 07:00 Urine Culture - Final Urine,Catheterized Proteus mirabilis Assessment and Plan Plan: #1 bilateral pneumonia #2 urinary tract infection #3 sepsis #4 atrial fibrillation was rapid ventricular response, currently in normal sinus rhythm #5 nonsustained V. tach #6 underlying history of dementia #7 underlying history of physical debility patient could ambulate a few steps was a use of a walker at [facility] prior to admission #8 underlying history of aortic stenosis #9 acute kidney injury with elevated creatinine to 1.49 #10 CODE STATUS at this time is still full code, prognosis is poor due to patient age and multiple medical problems At this time her power of ip attorney is her brother and we are trying to reach him to discuss CODE STATUS and further therapeutic options. At this time continue with IV Zosyn, IV vancomycin continue with IV Cordarone, continue with IV fluid support Awaiting blood culture and urine culture and sputum culture Pulmonary and cardiology are following Prognosis is poor
[2017-01-03] MEDS: METOPROLOL TARTRATE 12.5 MG TAB PO SCH (18:56)
[2017-01-03] MEDS: traZODone HCL 50 MG TAB PO SCH (21:25)
[2017-01-04 07:29] LABS: Basophils % (A) 1 %; CH 32.4; Eosinophils % (A) 1 %; HCT 31.9 % (34.0-46.0); HGB 10.5 gm/dL (11.4-16.0); Luc # (Auto) 0.13; Luc % (Auto) 2; Lymphocytes # (A) 1.7 k/uL (1.0-4.8); Lymphocytes % (A) 28 %; MCH 32.5 pg (25.0-35.0); MCV 98.6 fL (80.0-100.0); Mean Platelet Volume 7.1; Monocytes # (A) 0.4 k/uL (0-1.0); Monocytes % (A) 7 %; Neutrophils # (A) 3.9 k/uL (1.3-7.7); Neutrophils % (A) 62 %; RBC 3.24 m/uL (3.80-5.40); RDW 14.4 % (11.5-15.5); WBC 6.2 k/uL (3.8-10.6); WBC (Perox) 6.59
[2017-01-04 07:45] LABS: Calcium 7.7 mg/dL (8.4-10.2); Potassium 3.8 mmol/L (3.5-5.1); Total Bilirubin 0.9 mg/dL (0.2-1.3); Total Protein 5.6 g/dL (6.3-8.2)
[2017-01-04] MEDS: IPRATROPIUM-ALBUTEROL 3 ML NEB INHALATION SCH ×4 (07:47→21:38)
[2017-01-04] MEDS: METOPROLOL TARTRATE 12.5 MG TAB PO SCH ×2 (08:57→21:06)
[2017-01-04] MEDS: FUROSEMIDE 10 MG/ML 4 ML VIAL IV SCH (08:57)
[2017-01-04] MEDS: predniSONE 5 MG TAB PO SCH (08:57)
[2017-01-04] MEDS: POTASSIUM CHLORIDE ER 10 MEQ TAB.ER.PRT PO SCH (08:57)
[2017-01-04] MEDS: AMIODARONE 200 MG TAB PO SCH ×2 (08:57→21:06)
[2017-01-04] MEDS: ENOXAPARIN 60 MG/0.6 ML SYRINGE SQ SCH (08:57)
[2017-01-04] MEDS: DONEPEZIL 10 MG TAB PO SCH (08:57)
[2017-01-04] MEDS: FERROUS SULFATE 325 MG TAB PO SCH (08:57)
[2017-01-04] MEDS: PIPERACILLIN-TAZOBACTAM 3.375 GM in DEXTROSE/WATER 1 50ML.BAG IVPB SCH ×2 (09:02→20:56)
--- NOTE | 2017-01-04 09:34 | XR ---
EXAMINATION TYPE: XR chest 1V DATE OF EXAM: 01/04/2017 7:02 AM COMPARISON: 01/03/2017 INDICATION: Pneumonia, previous abnormal chest TECHNIQUE: Single frontal view of the chest is obtained. FINDINGS: The heart size is upper limits of normal. The pulmonary vasculature is normal. Right lower lobe infiltrate is present. There is silhouetting left diaphragm compatible with a retroc ardiac infiltrate. Small effusion may be present on the left. IMPRESSION: 1. Bibasilar infiltrates and small left pleural effusion, stable from prior study.
--- NOTE | 2017-01-04 13:56 | P.PN ---
Subjective Principal diagnosis: Bilateral pneumonia Patient is an 86-year-old female admitted to [facility] with severe shortness of breath chest x-ray revealed evidence of bilateral pneumonia initially she was admitted to intensive care unit currently she is on telemetry floor. Objective - Vital Signs Vital signs: Vital Signs Temp 99.8 F H 01/04/17 08:00 Pulse 100 01/04/17 12:17 Resp 16 01/04/17 08:00 BP 137/66 01/04/17 08:00 Pulse Ox 93 L 01/04/17 08:00 Intake & Output 01/03/17 01/04/17 01/04/17 18:59 06:59 18:59 Intake Total 500 100 Balance 500 100 Weight 71.5 kg Intake: IV 500 100 Dextrose 5% in Water 1, 400 000 ml @ 50 mls/hr IV . [id number] [facility]IRA with Sodium Acetate 150 meq with Water For Injection, Sterile 25 ml Rx#: [id number] Piperacillin-Tazobactam 3 100 100 .375 gm In Dextrose/Water 1 50ml.bag @ 12.5 mls/hr IVPB Q8HR [facility] Rx#: [id number] Other: Voiding Method Indwelling Catheter Indwelling Catheter Indwelling Catheter # Voids 3 - Exam HEENT head normocephalic and atraumatic Neck is supple no JVD no goiter no lymphadenopathy Chest exam reveals a crackles in both lung ling no wheezing Cardiac exam reveals regular heart sounds no murmurs Abdomen is soft nontender no organomegaly Extremity exam reveals no edema no cyanosis or clubbing - Labs CBC & Chem 7: 01/04/17 06:44 01/04/17 06:42 Labs: Abnormal Lab Results - Last 24 Hours (Table) 01/03/17 01/04/17 01/04/17 Range/Units 15:53 06:42 06:44 RBC 3.24 L (3.80-5.40) m/uL Hgb 10.5 L (11.4-16.0) gm/dL Hct 31.9 L (34.0-46.0) % Chloride 112 H (98-107) mmol/L Creatinine 1.61 H (0.52-1.04) mg/dL Glucose 102 H (74-99) mg/dL POC Glucose (mg/dL) 125 H (75-99) mg/dL Calcium 7.7 L (8.4-10.2) mg/dL Total Protein 5.6 L (6.3-8.2) g/dL Albumin 2.6 L (3.5-5.0) g/dL Microbiology - Last 24 Hours (Table) 01/02/17 22:16 Blood Culture - Preliminary Blood No Growth after 24 hours 01/02/17 22:28 Blood Culture - Preliminary Blood No Growth after 24 hours Assessment and Plan Plan: #1 bilateral pneumonia #2 urinary tract infection #3 sepsis #4 atrial fibrillation was rapid ventricular response, currently in normal sinus rhythm #5 nonsustained V. tach #6 underlying history of dementia #7 underlying history of physical debility patient could ambulate a few steps was a use of a walker at [facility] prior to admission #8 underlying history of aortic stenosis #9 acute kidney injury with elevated creatinine to 1.49 #10 CODE STATUS at this time is still full code, prognosis is poor due to patient age and multiple medical problems At this time her power of balance and hairspring assembler is her brother and we are trying to reach him to discuss CODE STATUS and further therapeutic options. At this time continue with IV Zosyn, IV vancomycin continue with IV Cordarone, continue with IV fluid support Awaiting blood culture and urine culture and sputum culture Pulmonary and cardiology are following, patient is improving gradually Prognosis is poor
--- NOTE | 2017-01-04 15:32 | P.PN ---
Subjective This is a 86-year-old female who lives [facility] was brought in with the elevated fever and feeling tired. In the emergency room patient was found to have evidence of bilateral infiltrates and also evidence of urinary tract infection. Patient was started on IV antibiotics including Levaquin and was admitted to the floor. Patient developed episodes of polymorphic ventricular tachycardia. Patient was subsequent transferred to intensive care unit. Subsequently she was noted to have atrial fibrillation with rapid ventricular response. Again last evening patient had an episode of atrial fibrillation, this morning she remains in normal sinus rhythm. She also had a temperature of 101. Blood cultures gram positive cocci in chains and pairs. She and is currently on oral amiodarone. Small dose of beta fredi was added yesterday. Objective - Vital Signs Vital signs: Vital Signs Temp 99.8 F H 01/04/17 08:00 Pulse 100 01/04/17 12:17 Resp 16 01/04/17 08:00 BP 137/66 01/04/17 08:00 Pulse Ox 93 L 01/04/17 08:00 Intake & Output 01/03/17 01/04/17 01/04/17 18:59 06:59 18:59 Intake Total 500 100 Balance 500 100 Weight 71.5 kg Intake: IV 500 100 Dextrose 5% in Water 1, 400 000 ml @ 50 mls/hr IV . [id number] HIRA with Sodium Acetate 150 meq with Water For Injection, Sterile 25 ml Rx#: [id number] Piperacillin-Tazobactam 3 100 100 .375 gm In Dextrose/Water 1 50ml.bag @ 12.5 mls/hr IVPB Q8HR [facility] Rx#: [id number] Other: Voiding Method Indwelling Catheter Indwelling Catheter Indwelling Catheter # Voids 3 - Exam PHYSICAL EXAMINATION: HEENT: Head is atraumatic, normocephalic. Pupils equal, round. Neck is supple. There is no elevated jugular venous pressure. HEART EXAMINATION: Heart S1, S2 normal. No murmur or gallop heard. CHEST EXAMINATION: Lungs reveal diminished breath sounds bilaterally. ABDOMEN: Soft, nontender. Bowel sounds are heard. No organomegaly noted. EXTREMITIES: 2+ peripheral pulses with no evidence of peripheral edema and no calf tenderness noted. NEUROLOGIC patient is awake, alert and oriented -3. . - Labs CBC & Chem 7: 01/04/17 06:44 01/04/17 06:42 Labs: Abnormal Lab Results - Last 24 Hours (Table) 01/03/17 01/04/17 01/04/17 Range/Units 15:53 06:42 06:44 RBC 3.24 L (3.80-5.40) m/uL Hgb 10.5 L (11.4-16.0) gm/dL Hct 31.9 L (34.0-46.0) % Chloride 112 H (98-107) mmol/L Creatinine 1.61 H (0.52-1.04) mg/dL Glucose 102 H (74-99) mg/dL POC Glucose (mg/dL) 125 H (75-99) mg/dL Calcium 7.7 L (8.4-10.2) mg/dL Total Protein 5.6 L (6.3-8.2) g/dL Albumin 2.6 L (3.5-5.0) g/dL Microbiology - Last 24 Hours (Table) 01/02/17 22:28 Blood Culture Gram Stain - Preliminary Blood 01/02/17 22:28 Blood Culture - Preliminary Blood 01/02/17 22:16 Blood Culture - Preliminary Blood No Growth after 24 hours Assessment and Plan (1) Paroxysmal a-fib Status: Acute (2) UTI (urinary tract infection) Status: Acute (3) Aortic stenosis Status: Acute (4) Pneumonia Status: Acute (5) Polymorphic ventricular tachycardia Status: Acute Plan: From cardiology's perspective, we'll continue current medications which include amiodarone and beta fredi. DNP note has been reviewed, I agree with a documented findings and plan of care. Patient was seen and examined.
[2017-01-04] MEDS ORDERED: VANCOMYCIN 1,000 MG in SODIUM CHLORIDE 0.9% 250 ML IVPB ONE (18:00)
--- NOTE | 2017-01-04 18:03 | P.PN ---
Subjective Principal diagnosis: Non-sustained ventricular tachycardia This is an 86-year-old female patient who resides at [facility]. She has a history of severe dementia, aortic stenosis, lupus, osteoporosis, renal failure. She was also recently found to have a urinary tract infection with Proteus mirabilis and was initiated on Bactrim. She was transferred here to the [facility] on 12/31/2016 with a temperature of 101.3 and some altered mental status. She had been seen and evaluated in the emergency room was reported to have bilateral pneumonia, febrile illness and acute dehydration. She was admitted to the hospital for the same. Proximally 5:30 yesterday morning she developed self-limiting ventricular tachycardia. She did not require any defibrillation or CPR. She had been on Levaquin and there was some prolongation of the QT interval. She was transferred here to the intensive care unit and initiated on amiodarone drip. She is seen again today in follow-up in the intensive care unit 01/02/2017. She is more awake and alert. She does have severe dementia and is disoriented to place and time. She has not had any further ventricular tachycardic episodes. She remains on amiodarone at 0.5 mg/m. She did not require any pressor support. His been hemodynamically stable. She is requiring 5 L of high flow nasal cannula to maintain O2 saturations in the low 90s. Maintained on Zosyn. She is on bronchodilators 4 times a day and when necessary. The patient is seen again today 01/03/2017 in follow-up on the selective care unit. She is somewhat more lethargic today as compared to yesterday, not as alert and interactive. She did have a T-max of 101.0 this morning. Urine cultures positive for Proteus mirabilis. Her heart remains regular no further sustained VT episodes. She is maintaining O2 saturations in the 90s on room air. Her bicarb has improved to 23. Her chest x-ray is stable however continues to show scattered airspace infiltrates in the right upper and lower lobes as well as some left basilar atelectasis. The patient is seen again today 01/04/2017 in follow-up on the selective care unit. Her condition remains about the same. She does arouse to verbal stimuli but drifts off fairly quickly. Today's chest x-ray continues to revealed bibasilar infiltrates and a small left pleural effusion however stable. No worsening. She is maintaining good O2 saturations in the low 90s on room air. Her bicarb continues to improve currently at 24. Cranial 1.61. She remains slightly febrile at 99.4 axillary. Repeat blood cultures reveal no growth. She does have Proteus mirabilis in her urine culture. Objective - Vital Signs Vital signs: Vital Signs Temp 99.4 F 01/04/17 16:00 Pulse 88 01/04/17 16:00 Resp 16 01/04/17 16:00 BP 137/62 01/04/17 16:00 Pulse Ox 93 L 01/04/17 16:00 Intake & Output 01/03/17 01/04/17 01/04/17 18:59 06:59 18:59 Intake Total 500 100 Balance 500 100 Weight 71.5 kg Intake: IV 500 100 Dextrose 5% in Water 1, 400 000 ml @ 50 mls/hr IV . [id number] HIRA with Sodium Acetate 150 meq with Water For Injection, Sterile 25 ml Rx#: [id number] Piperacillin-Tazobactam 3 100 100 .375 gm In Dextrose/Water 1 50ml.bag @ 12.5 mls/hr IVPB Q8HR [facility] Rx#: [id number] Other: Voiding Method Indwelling Catheter Indwelling Catheter Indwelling Catheter # Voids 3 - Exam GENERAL EXAM: Drowsy, in no apparent distress. HEAD: Normocephalic. EYES: Normal reaction of pupils, equal size. NOSE: Clear with pink turbinates. THROAT: No erythema or exudates. NECK: No masses, no JVD. CHEST: No chest wall deformity. LUNGS: Equal air entry with echoes in the bilateral posterior bases. CVS: S1 and S2 normal with audible murmur, regular rhythm. ABDOMEN: No hepatosplenomegaly, normal bowel sounds, no guarding or rigidity. Extremities: There is no significant peripheral edema. No clubbing, no cyanosis. Peripheral pulses are intact. - Labs CBC & Chem 7: 01/04/17 06:44 01/04/17 06:42 Labs: Abnormal Lab Results - Last 24 Hours (Table) 01/04/17 01/04/17 Range/Units 06:42 06:44 RBC 3.24 L (3.80-5.40) m/uL Hgb 10.5 L (11.4-16.0) gm/dL Hct 31.9 L (34.0-46.0) % Chloride 112 H (98-107) mmol/L Creatinine 1.61 H (0.52-1.04) mg/dL Glucose 102 H (74-99) mg/dL Calcium 7.7 L (8.4-10.2) mg/dL Total Protein 5.6 L (6.3-8.2) g/dL Albumin 2.6 L (3.5-5.0) g/dL Microbiology - Last 24 Hours (Table) 01/02/17 22:28 Blood Culture Gram Stain - Preliminary Blood 01/02/17 22:28 Blood Culture - Preliminary Blood 01/02/17 22:16 Blood Culture - Preliminary Blood No Growth after 24 hours Assessment and Plan Plan: Impression: #1 Nonsustained ventricular tachycardia requiring amiodarone infusion, transitioned to oral. #2 Atrial fibrillation with a rapid ventricular response, recovered currently in normal sinus rhythm with PACs. #3 Aortic stenosis. #4 Severe dementia. #5 Urinary tract infection secondary to gram-negative bacilli with recent urinary tract infection Proteus mirabilis treated with Bactrim in the outpatient setting. #6 Lupus. #7 Osteoporosis. #8 Acute renal failure. #9 care home resident. #10 Poor overall functional performance based on the above mentioned multiple comorbidities. Plan: The patient was seen and evaluated by Dr. Buchanan. Her chest x-ray remains stable. She is maintaining O2 saturations in the 90s on room air. However, her overall prognosis remains quite guarded. She is a DO NOT RESUSCITATE/DO NOT INTUBATE CODE STATUS. Continue Zosyn which the Proteus mirabilis is sensitive to. We'll continue with her current medications. We'll continue to follow and make further recommendations based on her clinical status.
[2017-01-04] MEDS: traZODone HCL 50 MG TAB PO SCH (21:07)
[2017-01-05] MEDS: PIPERACILLIN-TAZOBACTAM 3.375 GM in DEXTROSE/WATER 1 50ML.BAG IVPB SCH ×3 (02:45→18:07)
[2017-01-05 06:38] LABS: Basophils % (A) 0 %; CH 32.8; CHCM 33.3; Eosinophils % (A) 0 %; HCT 31.3 % (34.0-46.0); HDW 2.61; HGB 10.3 gm/dL (11.4-16.0); Luc # (Auto) 0.19; Luc % (Auto) 2; Lymphocytes # (A) 1.7 k/uL (1.0-4.8); Lymphocytes % (A) 20 %; MCH 32.7 pg (25.0-35.0); MCHC 33.1 g/dL (31.0-37.0); Mean Platelet Volume 7.1; Monocytes # (A) 0.6 k/uL (0-1.0); Monocytes % (A) 7 %; Neutrophils # (A) 6.2 k/uL (1.3-7.7); Neutrophils % (A) 71 %; RBC 3.16 m/uL (3.80-5.40); RDW 14.5 % (11.5-15.5); WBC 8.8 k/uL (3.8-10.6); WBC (Perox) 8.38
[2017-01-05 06:39] LABS: Calcium 7.9 mg/dL (8.4-10.2); Potassium 3.7 mmol/L (3.5-5.1); Total Bilirubin 0.9 mg/dL (0.2-1.3); Total Protein 5.3 g/dL (6.3-8.2)
--- NOTE | 2017-01-05 07:09 | PN ---
DATE OF SERVICE: 01/04/2017 Reason for followup is UTI bacteremia and persistent fever. INTERVAL HISTORY: The patient did have a fever this morning of 100.8 for which we did order repeat blood cultures. We also ordered an influenza swab that came back to be negative. The patient remains to be lethargic, was unable to provide any history. No nausea, vomiting or any diarrhea. On examination, blood pressure is 141/67 with a pulse of 92, temperature T-max of 100.9. She is 93% on 2 L nasal cannula. General description is an elderly female, lying in bed in no distress. RESPIRATORY SYSTEM: Unlabored breathing, some coarse breath sounds at the base. No wheeze. HEART: S1, S2. Regular rate and rhythm. ABDOMEN: Soft. No tenderness. LABS: Hemoglobin is 10.5, white count 6.2 with a BUN of 17, creatinine 1.6. Influenza A and B have been negative. Blood cultures 01/02 coming back positive as well. DIAGNOSTIC IMPRESSION AND PLAN: Patient with fever. Source is multifactorial in this patient who did have Proteus mirabilis UTI, adequately treated with antibiotic. Patient is currently on Zosyn, also with evidence of a bacteremia in a patient who did have aortic stenosis, loud murmur. In view of present bacteremia she may benefit from a WAGNER , discussed with Cardiology. Currently covered with Vanco and Zosyn will be continued. Chest x-ray repeat this morning showing bibasilar infiltrate as stable, there has been no worsening. Overall prognosis continues to be guarded. MTDD
--- NOTE | 2017-01-05 07:40 | XR ---
EXAMINATION TYPE: XR chest 1V DATE OF EXAM: 01/05/2017 7:18 AM COMPARISON: 01/04/2017 HISTORY: 86-year-old female follow-up pneumonia TECHNIQUE: Single frontal view of the chest is obtained. FINDINGS: The heart remains mildly enlarged. Pulmonary vasculature within normal limits. Patchy right mid and l ower lung opacity with small right pleural effusion. Some of the opacities show slight improvement. T race left pleural effusion persists. IMPRESSION: 1. Stable cardiomegaly. 2. Persistent but slightly improved infiltrate at the right base with continued small effusion. 3. Continued trace left effusion.
[2017-01-05] MEDS: IPRATROPIUM-ALBUTEROL 3 ML NEB INHALATION SCH ×5 (09:37→19:35)
--- NOTE | 2017-01-05 11:15 | P.PN ---
Subjective This is a 86-year-old female from [facility] who presented with fever and decrease in mentation. She does have a known history of dementia. She is found to have a UTI and pneumonia and started on Levaquin. Initially patient admitted to regular medical floor. When into atrial fibrillation with rapid ventricular [facility] Then she developed nonsustained ventricular tachycardia. CODE BLUE was called she did not require any CPR. She was transferred to the ICU. She had been on Levaquin and there was prolongation of the QT interval. She was evaluated by cardiology and pulmonary service. She did require amiodarone drip and Cardizem drip. She is currently off of these drips and started on oral amiodarone. And she is also been placed on IV Lasix. She's been cleared from consulting physicians to be [facility] Patient lying in bed comfortably more alert today. Currently on Zosyn for IV antibiotic coverage. Denies any chest pain or shortness of breath. Denies any nausea or vomiting. 01/05/2017 Patient is on the telemetry floor. Sleeping in bed comfortably. Patient had refused meds early this morning. As well as she is not eating much all of her food per nursing staff. Objective - Vital Signs Vital signs: Vital Signs Temp 98.9 F 01/05/17 04:00 Pulse 97 01/05/17 04:00 Resp 17 01/05/17 04:00 BP 129/62 01/05/17 04:00 Pulse Ox 97 01/05/17 04:00 Intake & Output 01/04/17 01/05/17 01/05/17 18:59 06:59 18:59 Intake Total 220 Output Total 2600 Balance -2380 Weight 68.5 kg Intake: IV 100 Piperacillin-Tazobactam 3 100 .375 gm In Dextrose/Water 1 50ml.bag @ 12.5 mls/hr IVPB Q8HR [facility] Rx#: [id number] Oral 120 Output: Urine 2600 Other: Voiding Method Indwelling Catheter Indwelling Catheter - Exam Head normocephalic Neck supple Lungs clear to auscultation bilaterally no wheezing or crackles Heart regular rate and rhythm S1-S2, no rub or gallop positive murmur Abdomen is soft nontender nondistended positive bowel sounds no hepatosplenomegaly Extremities no edema Neuro awake and alert. Confused. Sleeping comfortably - Labs CBC & Chem 7: 01/05/17 06:00 01/05/17 06:00 Labs: Abnormal Lab Results - Last 24 Hours (Table) 01/05/17 01/05/17 Range/Units 06:00 06:00 RBC 3.16 L (3.80-5.40) m/uL Hgb 10.3 L (11.4-16.0) gm/dL Hct 31.3 L (34.0-46.0) % Chloride 110 H (98-107) mmol/L BUN 21 H (7-17) mg/dL Creatinine 1.60 H (0.52-1.04) mg/dL Calcium 7.9 L (8.4-10.2) mg/dL AST 56 H (14-36) U/L Alkaline Phosphatase 127 H (38-126) U/L Total Protein 5.3 L (6.3-8.2) g/dL Albumin 2.5 L (3.5-5.0) g/dL Microbiology - Last 24 Hours (Table) 01/02/17 22:28 Blood Culture Gram Stain - Preliminary Blood Blood Culture - Preliminary Coagulase Negative Staph 01/02/17 22:16 Blood Culture - Preliminary Blood No Growth after 48 hours 01/02/17 22:28 Blood Culture - Preliminary Blood Assessment and Plan Plan: 1. Bacterial Bilateral pneumonia: Continue Zosyn. Pulmonary following chest x- ray showing persistent slightly improved infiltrate 2. UTI with Proteus mirabilis on urine culture: Continue Zosyn and vancomycin. Infectious disease following 3. Sepsis on admission likely related to UTI and pneumonia. 4. Bacteremia: Repeat blood culture growing coag is negative staph. Continue to monitor. Infectious disease following. Patient had low-grade temps last night. Repeat blood cultures are pending 5. Nonsustained ventricular tachycardia: Continue oral amiodarone cardiology following 6. Atrial fibrillation with rapid ventricular response: Currently in normal sinus rhythm with PACs. Cardizem drip discontinued by cardiology. Cardiac he did add metoprolol. Currently in normal sinus rhythm. She did have a episode of sinus tachycardia with a heart rate of 160 last night. Cardiology following 7. Severe aortic stenosis noted on echo. Cardiology feels is not a good candidate for aortic valve replacement 8. Acute on chronic kidney disease: Stage 3. Kidney function improving creatinine 1.30. Continue to monitor 9. Severe dementia 10. Acute diastolic CHF exacerbation: Echo shows an EF of 55-60%. Chest x-ray showing evidence of fluid overload. Pulmonary service started patient on Lasix 40 mg IV daily. 11. Acute metabolic encephalopathy secondary to pneumonia and UTI 12. Acute kidney injury: Continue to monitor kidney function closely 13. Mild elevation of LFTs. Repeat labs in a.m. I performed an examination of the patient and discussed their management with the physician Healthcare Analyst. I have reviewed the Physician Healthcare Analyst's notes and agree with the documented findings and plan of care
[2017-01-05] MEDS ORDERED: ACETAMINOPHEN IV (For NPO) 1,000 MG in EMPTY BAG 1 BAG IVPB SCH (12:00)
[2017-01-05] MEDS: AMIODARONE 200 MG TAB PO SCH ×2 (12:32→21:08)
[2017-01-05] MEDS: FERROUS SULFATE 325 MG TAB PO SCH (12:32)
[2017-01-05] MEDS: DONEPEZIL 10 MG TAB PO SCH (12:32)
[2017-01-05] MEDS: METOPROLOL TARTRATE 12.5 MG TAB PO SCH ×2 (12:33→21:08)
--- NOTE | 2017-01-05 12:37 | P.PN ---
Subjective This is a 86-year-old female who lives [facility] was brought in with the elevated fever and feeling tired. In the emergency room patient was found to have evidence of bilateral infiltrates and also evidence of urinary tract infection. Patient was started on IV antibiotics including Levaquin and was admitted to the floor. Patient developed episodes of polymorphic ventricular tachycardia. Patient was subsequent transferred to intensive care unit. Subsequently she was noted to have atrial fibrillation with rapid ventricular response. Again last evening patient had an episode of atrial fibrillation, this morning she remains in normal sinus rhythm. She also had a temperature of 101. Blood cultures gram positive cocci in chains and pairs. She and is currently on oral amiodarone. Small dose of beta fredi was added yesterday. Heart rate under much better control. Objective - Vital Signs Vital signs: Vital Signs Temp 98.9 F 01/05/17 04:00 Pulse 80 01/05/17 08:00 Resp 16 01/05/17 08:00 BP 148/66 01/05/17 08:00 Pulse Ox 99 01/05/17 08:00 Intake & Output 01/04/17 01/05/17 01/05/17 18:59 06:59 18:59 Intake Total 220 Output Total 2600 450 Balance -2380 -450 Weight 68.5 kg Intake: IV 100 Piperacillin-Tazobactam 3 100 .375 gm In Dextrose/Water 1 50ml.bag @ 12.5 mls/hr IVPB Q8HR [facility] Rx#: [id number] Oral 120 Output: Urine 2600 450 Other: Voiding Method Indwelling Catheter Indwelling Catheter Indwelling Catheter # Bowel Movements 0 - Exam PHYSICAL EXAMINATION: HEENT: Head is atraumatic, normocephalic. Pupils equal, round. Neck is supple. There is no elevated jugular venous pressure. HEART EXAMINATION: Heart S1, S2 normal. No murmur or gallop heard. CHEST EXAMINATION: Lungs reveal diminished breath sounds bilaterally. ABDOMEN: Soft, nontender. Bowel sounds are heard. No organomegaly noted. EXTREMITIES: 2+ peripheral pulses with no evidence of peripheral edema and no calf tenderness noted. NEUROLOGIC patient is awake, alert and oriented -3. . - Labs CBC & Chem 7: 01/05/17 06:00 01/05/17 06:00 Labs: Abnormal Lab Results - Last 24 Hours (Table) 01/05/17 01/05/17 Range/Units 06:00 06:00 RBC 3.16 L (3.80-5.40) m/uL Hgb 10.3 L (11.4-16.0) gm/dL Hct 31.3 L (34.0-46.0) % Chloride 110 H (98-107) mmol/L BUN 21 H (7-17) mg/dL Creatinine 1.60 H (0.52-1.04) mg/dL Calcium 7.9 L (8.4-10.2) mg/dL AST 56 H (14-36) U/L Alkaline Phosphatase 127 H (38-126) U/L Total Protein 5.3 L (6.3-8.2) g/dL Albumin 2.5 L (3.5-5.0) g/dL Microbiology - Last 24 Hours (Table) 01/02/17 22:28 Blood Culture Gram Stain - Preliminary Blood Blood Culture - Preliminary Coagulase Negative Staph 01/02/17 22:16 Blood Culture - Preliminary Blood No Growth after 48 hours 01/02/17 22:28 Blood Culture - Preliminary Blood Assessment and Plan (1) Paroxysmal a-fib Status: Acute (2) UTI (urinary tract infection) Status: Acute (3) Aortic stenosis Status: Acute (4) Pneumonia Status: Acute (5) Polymorphic ventricular tachycardia Status: Acute Plan: From cardiology's perspective, we'll continue current medications which include amiodarone and beta fredi. We will follow this patient with you now on an as- needed basis only. Please don't hesitate to call with any questions. DNP note has been reviewed, I agree with a documented findings and plan of care. Patient was seen and examined.
[2017-01-05] MEDS: predniSONE 5 MG TAB PO SCH (12:56)
[2017-01-05] MEDS: POTASSIUM CHLORIDE ER 10 MEQ TAB.ER.PRT PO SCH (12:56)
[2017-01-05] MEDS: ENOXAPARIN 60 MG/0.6 ML SYRINGE SQ SCH (13:07)
[2017-01-05] MEDS: FUROSEMIDE 10 MG/ML 4 ML VIAL IV SCH (13:08)
--- NOTE | 2017-01-05 13:43 | P.PN ---
Subjective Principal diagnosis: Non-sustained ventricular tachycardia This is an 86-year-old female patient who resides at [facility]. She has a history of severe dementia, aortic stenosis, lupus, osteoporosis, renal failure. She was also recently found to have a urinary tract infection with Proteus mirabilis and was initiated on Bactrim. She was transferred here to the [facility] on 12/31/2016 with a temperature of 101.3 and some altered mental status. She had been seen and evaluated in the emergency room was reported to have bilateral pneumonia, febrile illness and acute dehydration. She was admitted to the hospital for the same. Proximally 5:30 yesterday morning she developed self-limiting ventricular tachycardia. She did not require any defibrillation or CPR. She had been on Levaquin and there was some prolongation of the QT interval. She was transferred here to the intensive care unit and initiated on amiodarone drip. She is seen again today in follow-up in the intensive care unit 01/02/2017. She is more awake and alert. She does have severe dementia and is disoriented to place and time. She has not had any further ventricular tachycardic episodes. She remains on amiodarone at 0.5 mg/m. She did not require any pressor support. His been hemodynamically stable. She is requiring 5 L of high flow nasal cannula to maintain O2 saturations in the low 90s. Maintained on Zosyn. She is on bronchodilators 4 times a day and when necessary. The patient is seen again today 01/03/2017 in follow-up on the selective care unit. She is somewhat more lethargic today as compared to yesterday, not as alert and interactive. She did have a T-max of 101.0 this morning. Urine cultures positive for Proteus mirabilis. Her heart remains regular no further sustained VT episodes. She is maintaining O2 saturations in the 90s on room air. Her bicarb has improved to 23. Her chest x-ray is stable however continues to show scattered airspace infiltrates in the right upper and lower lobes as well as some left basilar atelectasis. The patient is seen again today 01/04/2017 in follow-up on the selective care unit. Her condition remains about the same. She does arouse to verbal stimuli but drifts off fairly quickly. Today's chest x-ray continues to revealed bibasilar infiltrates and a small left pleural effusion however stable. No worsening. She is maintaining good O2 saturations in the low 90s on room air. Her bicarb continues to improve currently at 24. Cranial 1.61. She remains slightly febrile at 99.4 axillary. Repeat blood cultures reveal no growth. She does have Proteus mirabilis in her urine culture. The patient is seen again today in the 2016 in follow-up. She does arouse to loud verbal stimuli. Not interactive however. Her bicarb has recovered currently at 26. He is maintaining O2 saturations in the upper 90s on 2 L/m per nasal cannula. She is currently afebrile but did have another spike in temperature last evening. She remains on Zosyn. Objective - Vital Signs Vital signs: Vital Signs Temp 98.9 F 01/05/17 04:00 Pulse 80 01/05/17 08:00 Resp 16 01/05/17 08:00 BP 148/66 01/05/17 08:00 Pulse Ox 99 01/05/17 08:00 Intake & Output 01/04/17 01/05/17 01/05/17 18:59 06:59 18:59 Intake Total 220 Output Total 2600 450 Balance -2380 -450 Weight 68.5 kg Intake: IV 100 Piperacillin-Tazobactam 3 100 .375 gm In Dextrose/Water 1 50ml.bag @ 12.5 mls/hr IVPB Q8HR [facility] Rx#: [id number] Oral 120 Output: Urine 2600 450 Other: Voiding Method Indwelling Catheter Indwelling Catheter Indwelling Catheter # Bowel Movements 0 - Exam GENERAL EXAM: Drowsy, in no apparent distress. HEAD: Normocephalic. EYES: Normal reaction of pupils, equal size. NOSE: Clear with pink turbinates. THROAT: No erythema or exudates. NECK: No masses, no JVD. CHEST: No chest wall deformity. LUNGS: Equal air entry with echoes in the bilateral posterior bases. CVS: S1 and S2 normal with audible murmur, regular rhythm. ABDOMEN: No hepatosplenomegaly, normal bowel sounds, no guarding or rigidity. Extremities: There is no significant peripheral edema. No clubbing, no cyanosis. Peripheral pulses are intact. - Labs CBC & Chem 7: 01/05/17 06:00 01/05/17 06:00 Labs: Abnormal Lab Results - Last 24 Hours (Table) 01/05/17 01/05/17 Range/Units 06:00 06:00 RBC 3.16 L (3.80-5.40) m/uL Hgb 10.3 L (11.4-16.0) gm/dL Hct 31.3 L (34.0-46.0) % Chloride 110 H (98-107) mmol/L BUN 21 H (7-17) mg/dL Creatinine 1.60 H (0.52-1.04) mg/dL Calcium 7.9 L (8.4-10.2) mg/dL AST 56 H (14-36) U/L Alkaline Phosphatase 127 H (38-126) U/L Total Protein 5.3 L (6.3-8.2) g/dL Albumin 2.5 L (3.5-5.0) g/dL Microbiology - Last 24 Hours (Table) 01/02/17 22:28 Blood Culture Gram Stain - Preliminary Blood Blood Culture - Preliminary Coagulase Negative Staph 01/02/17 22:16 Blood Culture - Preliminary Blood No Growth after 48 hours 01/02/17 22:28 Blood Culture - Preliminary Blood Assessment and Plan Plan: Impression: #1 Nonsustained ventricular tachycardia requiring amiodarone infusion, transitioned to oral. #2 Atrial fibrillation with a rapid ventricular response, recovered currently in normal sinus rhythm with PACs. #3 Aortic stenosis. #4 Severe dementia. #5 Urinary tract infection secondary to gram-negative bacilli with recent urinary tract infection Proteus mirabilis treated with Bactrim in the outpatient setting. #6 Lupus. #7 Osteoporosis. #8 Acute renal failure. #9 group home resident. #10 Poor overall functional performance based on the above mentioned multiple comorbidities. Plan: The patient was seen and evaluated by Dr. Buchanan. She is maintaining O2 saturations in the 90s on 2l. She is a DO NOT RESUSCITATE/DO NOT INTUBATE CODE STATUS. Continue Zosyn which the Proteus mirabilis is sensitive to. We'll continue with her current medications. Her overall prognosis remains quite guarded.
[2017-01-05] MEDS: ACETAMINOPHEN IV (For NPO) 1,000 MG in EMPTY BAG 1 BAG IVPB SCH ×2 (18:05→23:59)
[2017-01-05] MEDS: SODIUM CHLORIDE 0.9% 1,000 ML IV SCH (18:07)
[2017-01-05] MEDS ORDERED: DILTIAZEM 125 MG in SODIUM CHLORIDE 0.9% 100 ML IV SCH (21:00)
[2017-01-05] MEDS: traZODone HCL 50 MG TAB PO SCH (21:08)
[2017-01-05] MEDS ORDERED: DIGOXIN 250 MCG/ML 2 ML AMP IVP ONE (22:20)
[2017-01-06] MEDS: PIPERACILLIN-TAZOBACTAM 3.375 GM in DEXTROSE/WATER 1 50ML.BAG IVPB SCH ×3 (00:17→17:08)
[2017-01-06 06:16] LABS: Basophils % (A) 0 %; CH 32.4; CHCM 31.9; Eosinophils % (A) 0 %; HCT 32.3 % (34.0-46.0); HDW 2.54; HGB 10.2 gm/dL (11.4-16.0); Luc # (Auto) 0.12; Luc % (Auto) 2; Lymphocytes # (A) 1.3 k/uL (1.0-4.8); Lymphocytes % (A) 17 %; MCH 32.3 pg (25.0-35.0); MCHC 31.6 g/dL (31.0-37.0); MCV 102.1 fL (80.0-100.0); Macrocytosis Slight; Mean Platelet Volume 6.9; Monocytes # (A) 0.4 k/uL (0-1.0); Monocytes % (A) 6 %; Neutrophils # (A) 5.6 k/uL (1.3-7.7); Neutrophils % (A) 75 %; RBC 3.16 m/uL (3.80-5.40); RDW 14.6 % (11.5-15.5); WBC 7.4 k/uL (3.8-10.6); WBC (Perox) 8.18
[2017-01-06 06:34] LABS: Calcium 8.1 mg/dL (8.4-10.2); Potassium 3.7 mmol/L (3.5-5.1); Total Bilirubin 0.9 mg/dL (0.2-1.3); Total Protein 5.2 g/dL (6.3-8.2)
[2017-01-06] MEDS: ACETAMINOPHEN IV (For NPO) 1,000 MG in EMPTY BAG 1 BAG IVPB SCH ×2 (06:35→12:59)
[2017-01-06] MEDS ORDERED: VANCOMYCIN 1,250 MG in SODIUM CHLORIDE 0.9% 250 ML IVPB ONE (09:00)
[2017-01-06] MEDS: IPRATROPIUM-ALBUTEROL 3 ML NEB INHALATION SCH ×4 (09:03→20:21)
--- NOTE | 2017-01-06 09:10 | PN ---
DATE OF SERVICE: 01/05/2017 Reason for followup is UTI, pneumonia and bacteremia. INTERVAL HISTORY: The patient seems to have fevers. She had a fever last night of 100.9, afebrile since then. Repeat blood culture has been ordered. The patient remains to be lethargic, unable to provided any history. Her oral intake remains to be poor. No nausea, no vomiting has been noticed and no significant diarrhea per the R.N. On examination, blood pressure is 115/74 with a pulse of 76, temperature 98.9, T-Max is 100.9. She is 98% on 2 L nasal cannula. General description is an elderly female, lying in bed in no distress. RESPIRATORY SYSTEM: Unlabored breathing. Some coarse breath sounds at the base. No wheeze. HEART: S1, S2. Regular rate and rhythm. ABDOMEN: Soft, no tenderness. EXTREMITIES: No edema of the feet. LABS: Hemoglobin is 10.8, white count 8.8 with a BUN of 21, creatinine is 1.60. Influenza A and B has been negative. Blood culture repeat for 24 hours positive; however, on 01/04 are negative showing the same coagulase-negative staph. DIAGNOSTIC IMPRESSION AND PLAN: Patient with fever which is likely multifactorial in this patient who did have a urinary tract infection showing Proteus mirabilis and question of possible aspiration pneumonitis. She is currently covered with the Zosyn. However, the persistent fever and persistent positive blood cultures with a loud systolic murmur. This may be important to rule out infective endocarditis. A WAGNER will be requested. This was communicated with the RN who will be arranging it with Cardiology. Overall progression remains to be guarded. Continue supportive care. MARI
[2017-01-06] MEDS: ENOXAPARIN 60 MG/0.6 ML SYRINGE SQ SCH (10:38)
[2017-01-06] MEDS: FUROSEMIDE 10 MG/ML 4 ML VIAL IV SCH (10:38)
--- NOTE | 2017-01-06 10:57 | P.PN ---
Subjective This is a 86-year-old female from [facility] who presented with fever and decrease in mentation. She does have a known history of dementia. She is found to have a UTI and pneumonia and started on Levaquin. Initially patient admitted to regular medical floor. When into atrial fibrillation with rapid ventricular response and sent to carrier clinic. Then she developed nonsustained ventricular tachycardia. CODE BLUE was called she did not require any CPR. She was transferred to the ICU. She had been on Levaquin and there was prolongation of the QT interval. She was evaluated by cardiology and pulmonary service. She did require amiodarone drip and Cardizem drip. She is currently off of these drips and started on oral amiodarone. And she is also been placed on IV Lasix. She's been cleared from consulting physicians to be transferred out of the ICU to carrier clinic. Patient lying in bed comfortably more alert today. Currently on Zosyn for IV antibiotic coverage. Denies any chest pain or shortness of breath. Denies any nausea or vomiting. 01/05/2017 Patient is on the telemetry floor. Sleeping in bed comfortably. Patient had refused meds early this morning. As well as she is not eating much all of her food per nursing staff. 01/06/2017 Patient more awake today. Lying in bed comfortably. She is orientated to her name. Per nursing she ate some of her breakfast. Was able to take her pills this morning. Patient did have an episode of atrial fibrillation with rapid ventricular response last night was given 1 dose of IV digoxin. And then converted back to sinus rhythm. Cardiology is aware and following. Infectious disease is concerned about infectious endocarditis and recommending a WAGNER. Case discussed with cardiology nurse practitioner. We'll await their further recommendations. Objective - Vital Signs Vital signs: Vital Signs Temp 97.9 F 01/06/17 04:00 Pulse 82 01/06/17 04:00 Resp 16 01/06/17 04:00 BP 154/68 01/06/17 04:00 Pulse Ox 94 L 01/06/17 04:00 Intake & Output 01/05/17 01/06/17 01/06/17 18:59 06:59 18:59 Intake Total 800 Output Total 450 1750 Balance -450 -950 Weight 68 kg 68 kg Intake: IV 50 Piperacillin-Tazobactam 3 50 .375 gm In Dextrose/Water 1 50ml.bag @ 12.5 mls/hr IVPB Q8HR [facility] Rx#: [id number] Intake, IV Titration 750 Amount ACETAMINOPHEN IV (For NPO 400 ) 1,000 mg In Empty Bag 1 bag @ 400 mls/hr IVPB Q6HR [facility] Rx#:[id number] Sodium Chloride 0.9% 1, 350 000 ml @ 50 mls/hr IV . Q20H [facility] Rx#:[id number] Oral 0 Output: Urine 450 1750 Other: Voiding Method Indwelling Catheter Indwelling Catheter # Bowel Movements 0 0 - Exam Head normocephalic Neck supple Lungs clear to auscultation bilaterally no wheezing or crackles Heart regular rate and rhythm S1-S2, no rub or gallop positive murmur Abdomen is soft nontender nondistended positive bowel sounds no hepatosplenomegaly Extremities no edema Neuro awake and alert. Confused. Orientated to name only - Labs CBC & Chem 7: 01/06/17 05:49 01/06/17 05:49 Labs: Abnormal Lab Results - Last 24 Hours (Table) 01/06/17 01/06/17 Range/Units 05:49 05:49 RBC 3.16 L (3.80-5.40) m/uL Hgb 10.2 L (11.4-16.0) gm/dL Hct 32.3 L (34.0-46.0) % MCV 102.1 H (80.0-100.0) fL Chloride 111 H (98-107) mmol/L BUN 28 H (7-17) mg/dL Creatinine 1.40 H (0.52-1.04) mg/dL Glucose 110 H (74-99) mg/dL Calcium 8.1 L (8.4-10.2) mg/dL AST 49 H (14-36) U/L Total Protein 5.2 L (6.3-8.2) g/dL Albumin 2.4 L (3.5-5.0) g/dL Microbiology - Last 24 Hours (Table) 01/02/17 22:28 Blood Culture Gram Stain - Final Blood Blood Culture - Final Coagulase Negative Staph 01/02/17 22:16 Blood Culture - Preliminary Blood No Growth after 72 hours 01/04/17 15:25 Blood Culture - Preliminary Blood No Growth after 24 hours 01/04/17 15:10 Blood Culture - Preliminary Blood No Growth after 24 hours Assessment and Plan Plan: 1. Bacterial Bilateral pneumonia: Continue Zosyn. Pulmonary and infectious disease following chest x-ray showing persistent slightly improved infiltrate 2. UTI with Proteus mirabilis on urine culture: Continue Zosyn and vancomycin. Infectious disease following 3. Sepsis on admission likely related to UTI and pneumonia. 4. Bacteremia: Blood culture growing Staphylococcus epidermidis and Streptococcus anginosus. Blood culture from 01/02/2017 colitis negative staph. Blood cultures from the are negative so far. Infectious disease monitoring closely. They're concerned of infective endocarditis and recommending WAGNER. Awaiting cardiology recommendations. 5. Nonsustained ventricular tachycardia: Continue oral amiodarone cardiology following 6. Atrial fibrillation with rapid ventricular response: Patient had another episode of atrial fibrillation with rapid ventricular response and has converted back to sinus rhythm. She received a dose of IV digoxin last night. We'll add digoxin 0.125 mg by mouth daily. Continue metoprolol. Cardiology aware and following 7. Severe aortic stenosis noted on echo. Cardiology feels is not a good candidate for aortic valve replacement 8. Acute on chronic kidney disease: Stage 3. Kidney function improving creatinine 1.40. Continue to monitor 9. Severe dementia 10. Acute diastolic CHF exacerbation: Echo shows an EF of 55-60%. Chest x-ray showing evidence of fluid overload. Pulmonary service started patient on Lasix 40 mg IV daily. 11. Acute metabolic encephalopathy secondary to pneumonia and UTI 12. Acute kidney injury: Continue to monitor kidney function closely 13. Mild elevation of LFTs. LFTs trending down I performed an examination of the patient and discussed their management with the physician Writing Tutor. I have reviewed the Physician Writing Tutor's notes and agree with the documented findings and plan of care
[2017-01-06] MEDS: FERROUS SULFATE 325 MG TAB PO SCH (12:45)
[2017-01-06] MEDS: DONEPEZIL 10 MG TAB PO SCH (12:45)
[2017-01-06] MEDS: AMIODARONE 200 MG TAB PO SCH ×2 (12:45→21:14)
[2017-01-06] MEDS: POTASSIUM CHLORIDE ER 10 MEQ TAB.ER.PRT PO SCH (12:46)
[2017-01-06] MEDS: predniSONE 5 MG TAB PO SCH (12:46)
[2017-01-06] MEDS: METOPROLOL TARTRATE 12.5 MG TAB PO SCH ×2 (12:46→21:14)
--- NOTE | 2017-01-06 14:51 | P.PN ---
Subjective This is a 86-year-old female who [facility] was brought in with the elevated fever and feeling tired. In the emergency room patient was found to have evidence of bilateral infiltrates and also evidence of urinary tract infection. Patient was started on IV antibiotics including Levaquin and was admitted to the floor. Patient developed episodes of polymorphic ventricular tachycardia. Patient was subsequent transferred to intensive care unit. Subsequently she was noted to have atrial fibrillation with rapid ventricular response. Again last evening patient had an episode of atrial fibrillation, this morning she remains in normal sinus rhythm. She also had a temperature of 101. Blood cultures gram positive cocci in chains and pairs. She and is currently on oral amiodarone. Heart rate under much better control. Cardiology was requested to do a WAGNER, Dr. Peter's recommendation was not to put the patient through a WAGNER at this time. Objective - Vital Signs Vital signs: Vital Signs Temp 97 F L 01/06/17 08:00 Pulse 82 01/06/17 11:44 Resp 16 01/06/17 12:00 BP 160/75 01/06/17 08:00 Pulse Ox 98 01/06/17 08:00 Intake & Output 01/05/17 01/06/17 01/06/17 18:59 06:59 18:59 Intake Total 800 Output Total 450 1750 825 Balance -450 -950 -825 Weight 68 kg 68 kg Intake: IV 50 Piperacillin-Tazobactam 3 50 .375 gm In Dextrose/Water 1 50ml.bag @ 12.5 mls/hr IVPB Q8HR [facility] Rx#: [id number] Intake, IV Titration 750 Amount ACETAMINOPHEN IV (For NPO 400 ) 1,000 mg In Empty Bag 1 bag @ 400 mls/hr IVPB Q6HR [facility] Rx#:[id number] Sodium Chloride 0.9% 1, 350 000 ml @ 50 mls/hr IV . Q20H [facility] Rx#:[id number] Oral 0 Output: Urine 450 1750 825 Other: Voiding Method Indwelling Catheter Indwelling Catheter Indwelling Catheter # Bowel Movements 0 0 1 - Exam PHYSICAL EXAMINATION: HEENT: Head is atraumatic, normocephalic. Pupils equal, round. Neck is supple. There is no elevated jugular venous pressure. HEART EXAMINATION: Heart S1, S2 normal. No murmur or gallop heard. CHEST EXAMINATION: Lungs reveal diminished breath sounds bilaterally. ABDOMEN: Soft, nontender. Bowel sounds are heard. No organomegaly noted. EXTREMITIES: 2+ peripheral pulses with no evidence of peripheral edema and no calf tenderness noted. NEUROLOGIC patient is awake, alert and oriented -1. . - Labs CBC & Chem 7: 01/06/17 05:49 01/06/17 05:49 Labs: Abnormal Lab Results - Last 24 Hours (Table) 01/06/17 01/06/17 Range/Units 05:49 05:49 RBC 3.16 L (3.80-5.40) m/uL Hgb 10.2 L (11.4-16.0) gm/dL Hct 32.3 L (34.0-46.0) % MCV 102.1 H (80.0-100.0) fL Chloride 111 H (98-107) mmol/L BUN 28 H (7-17) mg/dL Creatinine 1.40 H (0.52-1.04) mg/dL Glucose 110 H (74-99) mg/dL Calcium 8.1 L (8.4-10.2) mg/dL AST 49 H (14-36) U/L Total Protein 5.2 L (6.3-8.2) g/dL Albumin 2.4 L (3.5-5.0) g/dL Microbiology - Last 24 Hours (Table) 01/02/17 22:28 Blood Culture Gram Stain - Final Blood Blood Culture - Final Coagulase Negative Staph 01/02/17 22:16 Blood Culture - Preliminary Blood No Growth after 72 hours 01/04/17 15:25 Blood Culture - Preliminary Blood No Growth after 24 hours 01/04/17 15:10 Blood Culture - Preliminary Blood No Growth after 24 hours Assessment and Plan (1) Paroxysmal a-fib Status: Acute (2) UTI (urinary tract infection) Status: Acute (3) Aortic stenosis Status: Acute (4) Pneumonia Status: Acute (5) Polymorphic ventricular tachycardia Status: Acute Plan: From cardiology's perspective, we'll continue current medications which include amiodarone and beta fredi. We will follow this patient with you now on an as- needed basis only. Not recommending a WAGNER at this time. Please don't hesitate to call with any questions. DNP note has been reviewed, I agree with a documented findings and plan of care. Patient was seen and examined.
--- NOTE | 2017-01-06 16:16 | P.PN ---
Subjective This is an 86-year-old female patient who resides at [facility]. She has a history of severe dementia, aortic stenosis, lupus, osteoporosis, renal failure. She was also recently found to have a urinary tract infection with Proteus mirabilis and was initiated on Bactrim. She was transferred here to the [facility] on 12/31/2016 with a temperature of 101.3 and some altered mental status. She had been seen and evaluated in the emergency room was reported to have bilateral pneumonia, febrile illness and acute dehydration. She was admitted to the hospital for the same. Proximally 5:30 yesterday morning she developed self-limiting ventricular tachycardia. She did not require any defibrillation or CPR. She had been on Levaquin and there was some prolongation of the QT interval. She was transferred here to the intensive care unit and initiated on amiodarone drip. She is seen again today in follow-up in the intensive care unit 01/02/2017. She is more awake and alert. She does have severe dementia and is disoriented to place and time. She has not had any further ventricular tachycardic episodes. She remains on amiodarone at 0.5 mg/m. She did not require any pressor support. His been hemodynamically stable. She is requiring 5 L of high flow nasal cannula to maintain O2 saturations in the low 90s. Maintained on Zosyn. She is on bronchodilators 4 times a day and when necessary. The patient is seen again today 01/03/2017 in follow-up on the selective care unit. She is somewhat more lethargic today as compared to yesterday, not as alert and interactive. She did have a T-max of 101.0 this morning. Urine cultures positive for Proteus mirabilis. Her heart remains regular no further sustained VT episodes. She is maintaining O2 saturations in the 90s on room air. Her bicarb has improved to 23. Her chest x-ray is stable however continues to show scattered airspace infiltrates in the right upper and lower lobes as well as some left basilar atelectasis. The patient is seen again today 01/04/2017 in follow-up on the selective care unit. Her condition remains about the same. She does arouse to verbal stimuli but drifts off fairly quickly. Today's chest x-ray continues to revealed bibasilar infiltrates and a small left pleural effusion however stable. No worsening. She is maintaining good O2 saturations in the low 90s on room air. Her bicarb continues to improve currently at 24. Cranial 1.61. She remains slightly febrile at 99.4 axillary. Repeat blood cultures reveal no growth. She does have Proteus mirabilis in her urine culture. The patient is seen again today in the 2016 in follow-up. She does arouse to loud verbal stimuli. Not interactive however. Her bicarb has recovered currently at 26. He is maintaining O2 saturations in the upper 90s on 2 L/m per nasal cannula. She is currently afebrile but did have another spike in temperature last evening. She remains on Zosyn. On 01/06/2017, the patient is more interactive. She is taking some oral diet although she is not meeting Requirements in terms of caloric intake. No significant rest or difficulties and the patient is resting comfortably in bed. The chest x-ray from yesterday showed stable cardiomegaly. There is persistent but slightly improved infiltrates in the right lung base and small effusions. There is a trace effusion on the left. The white cell count is nonelevated. Renal function remains stable today creatinine of 1.4. Objective - Vital Signs Vital signs: Vital Signs Temp 97 F L 01/06/17 08:00 Pulse 82 01/06/17 11:44 Resp 16 01/06/17 12:00 BP 160/75 01/06/17 08:00 Pulse Ox 98 01/06/17 08:00 Intake & Output 01/05/17 01/06/17 01/06/17 18:59 06:59 18:59 Intake Total 800 Output Total 450 1750 825 Balance -450 -950 -825 Weight 68 kg 68 kg Intake: IV 50 Piperacillin-Tazobactam 3 50 .375 gm In Dextrose/Water 1 50ml.bag @ 12.5 mls/hr IVPB Q8HR [facility] Rx#: [id number] Intake, IV Titration 750 Amount ACETAMINOPHEN IV (For NPO 400 ) 1,000 mg In Empty Bag 1 bag @ 400 mls/hr IVPB Q6HR [facility] Rx#:[id number] Sodium Chloride 0.9% 1, 350 000 ml @ 50 mls/hr IV . Q20H [facility] Rx#:[id number] Oral 0 Output: Urine 450 1750 825 Other: Voiding Method Indwelling Catheter Indwelling Catheter Indwelling Catheter # Bowel Movements 0 0 1 - Exam GENERAL EXAM: Drowsy, in no apparent distress. HEAD: Normocephalic. EYES: Normal reaction of pupils, equal size. NOSE: Clear with pink turbinates. THROAT: No erythema or exudates. NECK: No masses, no JVD. CHEST: No chest wall deformity. LUNGS: Equal air entry with echoes in the bilateral posterior bases. CVS: S1 and S2 normal with audible murmur, regular rhythm. ABDOMEN: No hepatosplenomegaly, normal bowel sounds, no guarding or rigidity. Extremities: There is no significant peripheral edema. No clubbing, no cyanosis. Peripheral pulses are intact. - Labs CBC & Chem 7: 01/06/17 05:49 01/06/17 05:49 Labs: Abnormal Lab Results - Last 24 Hours (Table) 01/06/17 01/06/17 Range/Units 05:49 05:49 RBC 3.16 L (3.80-5.40) m/uL Hgb 10.2 L (11.4-16.0) gm/dL Hct 32.3 L (34.0-46.0) % MCV 102.1 H (80.0-100.0) fL Chloride 111 H (98-107) mmol/L BUN 28 H (7-17) mg/dL Creatinine 1.40 H (0.52-1.04) mg/dL Glucose 110 H (74-99) mg/dL Calcium 8.1 L (8.4-10.2) mg/dL AST 49 H (14-36) U/L Total Protein 5.2 L (6.3-8.2) g/dL Albumin 2.4 L (3.5-5.0) g/dL Microbiology - Last 24 Hours (Table) 01/02/17 22:28 Blood Culture Gram Stain - Final Blood Blood Culture - Final Coagulase Negative Staph 01/02/17 22:16 Blood Culture - Preliminary Blood No Growth after 72 hours 01/04/17 15:25 Blood Culture - Preliminary Blood No Growth after 24 hours 01/04/17 15:10 Blood Culture - Preliminary Blood No Growth after 24 hours Assessment and Plan Plan: #1 bilateral lower lobe pneumonia, still on Zosyn and the patient is actually taking well at 2 L/m nasal cannula. Most recent chest x-ray shows improvement in aeration of the lung bases especially on the right along with small better pleural effusions. #2 Atrial fibrillation with a rapid ventricular response, recovered currently in normal sinus rhythm with PACs. #3 Aortic stenosis. #4 Severe dementia. #5 Urinary tract infection secondary to gram-negative bacilli with recent urinary tract infection Proteus mirabilis treated with Bactrim in the outpatient setting. #6 Lupus. #7 Osteoporosis. #8 Acute renal failure. #9 shelter resident. #10 Poor overall functional performance based on the above mentioned multiple comorbidities. #11 Nonsustained ventricular tachycardia requiring amiodarone infusion, transitioned to oral. Plan Continue the current antibiotic coverage. Aspiration precautions. ID to follow -up on the antibiotic choice and duration of treatment. Encourage increasing level of activity as tolerated. Unfortunately the patient will fare poorly as the patient has multiple medical problems and comorbidities and based on her age and comorbidities her long-term prognosis will be poor. For now, there is no active pulmonary or critical care issues on this patient and I'll sign off the case.
[2017-01-06] MEDS: traZODone HCL 50 MG TAB PO SCH (21:13)
[2017-01-06] MEDS: SODIUM CHLORIDE 0.9% 1,000 ML IV SCH (21:13)
--- NOTE | 2017-01-06 22:29 | PN ---
DATE OF SERVICE: 01/06/2017 REASON FOR FOLLOWUP: UTI, possible aspiration pneumonia and bacteremia. INTERVAL HISTORY: The patient overall feels better and has improved. She is noted to be slightly more awake today; however, still unable to provide any history. No nausea or vomiting has been noticed. Oral intake remains poor. No diarrhea per the RN. On examination, blood pressure is 162/75 with a pulse of 76, temperature 97. She is 98% on 2 L nasal cannula. General description is an elderly female lying in bed in no distress. RESPIRATORY SYSTEM: Unlabored breathing with decreased breath sounds at the base. No wheeze. HEART: S1, S2. Regular rate and rhythm. ABDOMEN: Soft, non-tender. EXTREMITIES: No edema of feet. LABS: Hemoglobin is 10.2 with a white count of 7.4, BUN of 28, creatinine 1.40. White count was 10.3. Follow-up blood culture has been negative so far. DIAGNOSTIC IMPRESSION AND PLAN: Patient with a fever and chills, likely multifactorial in this patient who did have Proteus mirabilis urinary tract infection and possible aspiration pneumonitis. However, the patient did have a persistent fever despite being on Zosyn, which should have covered both these processes. The patient also had evidence of a bacteremia both on 12/31 as well as 01/02. The 01/04 blood culture is negative. She did have a loud murmur from aortic stenosis and will benefit from a WAGNER to make sure there is no evidence of any endocarditis. This was discussed in detail with the nurse practitioner for Cardiology, who will be discussing it with Dr. Rosenberg tomorrow. MARI
[2017-01-07] MEDS: PIPERACILLIN-TAZOBACTAM 3.375 GM in DEXTROSE/WATER 1 50ML.BAG IVPB SCH ×3 (00:04→18:32)
[2017-01-07 07:00] LABS: Basophils % (A) 0 %; CH 32.1; CHCM 31.9; Eosinophils % (A) 0 %; HCT 32.5 % (34.0-46.0); HDW 2.55; HGB 10.4 gm/dL (11.4-16.0); Luc # (Auto) 0.08; Luc % (Auto) 1; Lymphocytes # (A) 1.2 k/uL (1.0-4.8); Lymphocytes % (A) 16 %; MCH 32.4 pg (25.0-35.0); MCV 101.2 fL (80.0-100.0); Macrocytosis Slight; Mean Platelet Volume 7.1; Monocytes # (A) 0.4 k/uL (0-1.0); Monocytes % (A) 5 %; Neutrophils # (A) 5.7 k/uL (1.3-7.7); Neutrophils % (A) 78 %; RBC 3.22 m/uL (3.80-5.40); RDW 14.3 % (11.5-15.5); WBC 7.4 k/uL (3.8-10.6); WBC (Perox) 8.05
[2017-01-07 07:13] LABS: Total Protein 5.9 g/dL (6.3-8.2)
[2017-01-07 07:17] LABS: Calcium 8.4 mg/dL (8.4-10.2); Potassium 3.5 mmol/L (3.5-5.1); Total Bilirubin 0.9 mg/dL (0.2-1.3)
[2017-01-07] MEDS: IPRATROPIUM-ALBUTEROL 3 ML NEB INHALATION SCH ×4 (08:30→20:07)
[2017-01-07] MEDS: DONEPEZIL 10 MG TAB PO SCH (09:18)
[2017-01-07] MEDS: METOPROLOL TARTRATE 12.5 MG TAB PO SCH ×2 (09:18→21:23)
[2017-01-07] MEDS: ENOXAPARIN 60 MG/0.6 ML SYRINGE SQ SCH (09:18)
[2017-01-07] MEDS: POTASSIUM CHLORIDE ER 10 MEQ TAB.ER.PRT PO SCH (09:19)
[2017-01-07] MEDS: AMIODARONE 200 MG TAB PO SCH ×2 (09:19→21:23)
[2017-01-07] MEDS: FUROSEMIDE 10 MG/ML 4 ML VIAL IV SCH (09:19)
[2017-01-07] MEDS: DIGOXIN 125 MCG TAB PO SCH (09:19)
[2017-01-07] MEDS: FERROUS SULFATE 325 MG TAB PO SCH (09:19)
[2017-01-07] MEDS: predniSONE 5 MG TAB PO SCH (09:19)
[2017-01-07] MEDS ORDERED: VANCOMYCIN 1,250 MG in SODIUM CHLORIDE 0.9% 250 ML IVPB ONE (11:00)
--- NOTE | 2017-01-07 11:50 | P.PN ---
Subjective This is a 86-year-old female who lives at [facility] was brought in with the elevated fever and feeling tired. In the emergency room patient was found to have evidence of bilateral infiltrates and also evidence of urinary tract infection. Patient was started on IV antibiotics including Levaquin and was admitted to the floor. Patient developed episodes of polymorphic ventricular tachycardia. Patient was subsequent transferred to intensive care unit. Subsequently she was noted to have atrial fibrillation with rapid ventricular response. This morning she remains in normal sinus rhythm. Blood cultures gram positive cocci in chains and pairs. She and is currently on oral amiodarone. Heart rate under much better control. Cardiology was requested to do a WAGNER, Dr. Peter's recommendation was not to put the patient through a WAGNER at this time. I spoke with Dr. Aaron this morning again regarding WAGNER and his recommendation also was not to perform a WAGNER on this patient at this time. Objective - Vital Signs Vital signs: Vital Signs Temp 97.7 F 01/07/17 11:22 Pulse 76 01/07/17 11:35 Resp 16 01/07/17 11:22 BP 164/77 01/07/17 11:22 Pulse Ox 100 01/07/17 11:22 Intake & Output 01/06/17 01/07/17 01/07/17 18:59 06:59 18:59 Intake Total 20 490 50 Output Total 825 1550 Balance -805 -1060 50 Weight 68 kg 67 kg Intake: IV 50 50 Piperacillin-Tazobactam 3 50 50 .375 gm In Dextrose/Water 1 50ml.bag @ 12.5 mls/hr IVPB Q8HR [facility] Rx#: [id number] Intake, IV Titration 200 Amount Sodium Chloride 0.9% 1, 200 000 ml @ 50 mls/hr IV . Q20H [facility] Rx#:[id number] Oral 20 240 Output: Urine 825 1550 Other: Voiding Method Indwelling Catheter Indwelling Catheter Indwelling Catheter # Voids 1 # Bowel Movements 1 - Exam PHYSICAL EXAMINATION: HEENT: Head is atraumatic, normocephalic. Pupils equal, round. Neck is supple. There is no elevated jugular venous pressure. HEART EXAMINATION: Heart S1, S2 normal. No murmur or gallop heard. CHEST EXAMINATION: Lungs reveal diminished breath sounds bilaterally. ABDOMEN: Soft, nontender. Bowel sounds are heard. No organomegaly noted. EXTREMITIES: 2+ peripheral pulses with no evidence of peripheral edema and no calf tenderness noted. NEUROLOGIC patient is awake, alert and oriented -1. . - Labs CBC & Chem 7: 01/07/17 06:39 01/07/17 06:39 Labs: Abnormal Lab Results - Last 24 Hours (Table) 01/07/17 01/07/17 Range/Units 06:39 06:39 RBC 3.22 L (3.80-5.40) m/uL Hgb 10.4 L (11.4-16.0) gm/dL Hct 32.5 L (34.0-46.0) % MCV 101.2 H (80.0-100.0) fL Sodium 148 H (137-145) mmol/L Chloride 111 H (98-107) mmol/L BUN 25 H (7-17) mg/dL Creatinine 1.24 H (0.52-1.04) mg/dL Glucose 119 H (74-99) mg/dL AST 41 H (14-36) U/L Alkaline Phosphatase 128 H (38-126) U/L Total Protein 5.9 L (6.3-8.2) g/dL Albumin 2.6 L (3.5-5.0) g/dL Microbiology - Last 24 Hours (Table) 01/02/17 22:16 Blood Culture - Preliminary Blood No Growth after 96 hours 01/04/17 15:25 Blood Culture - Preliminary Blood No Growth after 48 hours 01/04/17 15:10 Blood Culture - Preliminary Blood No Growth after 48 hours Assessment and Plan (1) Paroxysmal a-fib Status: Acute (2) UTI (urinary tract infection) Status: Acute (3) Aortic stenosis Status: Acute (4) Pneumonia Status: Acute (5) Polymorphic ventricular tachycardia Status: Acute Plan: From cardiology's perspective, we'll continue current medications which include amiodarone and beta fredi. We will follow this patient with you now on an as- needed basis only. Not recommending a WAGNER at this time. Continue conservative medical therapy. Please don't hesitate to call with any questions. DNP note has been reviewed, I agree with a documented findings and plan of care. Patient was seen and examined.
--- NOTE | 2017-01-07 12:23 | P.PN ---
Subjective No events overnight Objective - Vital Signs Vital signs: Vital Signs Temp 97.7 F 01/07/17 11:22 Pulse 76 01/07/17 11:35 Resp 16 01/07/17 11:22 BP 164/77 01/07/17 11:22 Pulse Ox 100 01/07/17 11:22 Intake & Output 01/06/17 01/07/17 01/07/17 18:59 06:59 18:59 Intake Total 20 490 50 Output Total 825 1550 Balance -805 -1060 50 Weight 68 kg 67 kg Intake: IV 50 50 Piperacillin-Tazobactam 3 50 50 .375 gm In Dextrose/Water 1 50ml.bag @ 12.5 mls/hr IVPB Q8HR [facility] Rx#: [id number] Intake, IV Titration 200 Amount Sodium Chloride 0.9% 1, 200 000 ml @ 50 mls/hr IV . Q20H [facility] Rx#:[id number] Oral 20 240 Output: Urine 825 1550 Other: Voiding Method Indwelling Catheter Indwelling Catheter Indwelling Catheter # Voids 1 # Bowel Movements 1 - Exam General: The patient is awake and alert, in no distress Eye: there is normal conjunctiva bilaterally. Neck: The neck is supple, there is no JVD. Cardiovascular: Normal S1-S2, no S3-S4, no murmurs. Respiratory: Lungs clear to auscultation bilaterally Gastrointestinal: Abdomen is soft, nontender Musculoskeletal: There is no pedal edema. Neurological:. Speech is normal. Skin: Skin is warm and dry - Labs CBC & Chem 7: 01/07/17 06:39 01/07/17 06:39 Labs: Abnormal Lab Results - Last 24 Hours (Table) 01/07/17 01/07/17 Range/Units 06:39 06:39 RBC 3.22 L (3.80-5.40) m/uL Hgb 10.4 L (11.4-16.0) gm/dL Hct 32.5 L (34.0-46.0) % MCV 101.2 H (80.0-100.0) fL Sodium 148 H (137-145) mmol/L Chloride 111 H (98-107) mmol/L BUN 25 H (7-17) mg/dL Creatinine 1.24 H (0.52-1.04) mg/dL Glucose 119 H (74-99) mg/dL AST 41 H (14-36) U/L Alkaline Phosphatase 128 H (38-126) U/L Total Protein 5.9 L (6.3-8.2) g/dL Albumin 2.6 L (3.5-5.0) g/dL Microbiology - Last 24 Hours (Table) 01/02/17 22:16 Blood Culture - Preliminary Blood No Growth after 96 hours 01/04/17 15:25 Blood Culture - Preliminary Blood No Growth after 48 hours 01/04/17 15:10 Blood Culture - Preliminary Blood No Growth after 48 hours Assessment and Plan Plan: 1. Bacterial Bilateral pneumonia: Pulmonary and infectious disease following 2. UTI with Proteus mirabilis on urine culture: Continue Zosyn and vancomycin. 3. Sepsis on admission likely related to UTI and pneumonia. 4. Bacteremia: Blood culture growing Staphylococcus epidermidis and Streptococcus anginosus. Blood culture from 01/02/2017 colitis negative staph. Blood cultures from the are negative so far. Patient is a very poor candidate for a WAGNER 5. Nonsustained ventricular tachycardia: Continue oral amiodarone cardiology following 6. Atrial fibrillation with rapid ventricular response 7. Severe aortic stenosis noted on echo, not a candidate for any intervention 8. Acute on chronic kidney disease: Stage 3. 9. Severe dementia 10. Acute diastolic CHF exacerbation: Echo shows an EF of 55-60%. Chest x-ray showing evidence of fluid overload. P 11. Acute metabolic encephalopathy secondary to pneumonia and UTI 12. Acute kidney injury: Continue to monitor kidney function closely 13. Mild elevation of LFTs. LFTs trending down
[2017-01-07] MEDS: SODIUM CHLORIDE 0.9% 1,000 ML IV SCH (16:04)
[2017-01-07] MEDS: traZODone HCL 50 MG TAB PO SCH (21:23)
[2017-01-08] MEDS: PIPERACILLIN-TAZOBACTAM 3.375 GM in DEXTROSE/WATER 1 50ML.BAG IVPB SCH ×4 (00:47→23:35)
[2017-01-08] MEDS: SODIUM CHLORIDE 0.9% 1,000 ML IV SCH ×2 (05:35→23:34)
[2017-01-08] MEDS: IPRATROPIUM-ALBUTEROL 3 ML NEB INHALATION SCH ×4 (08:17→19:02)
[2017-01-08] MEDS: FUROSEMIDE 10 MG/ML 4 ML VIAL IV SCH (10:32)
[2017-01-08] MEDS: ENOXAPARIN 60 MG/0.6 ML SYRINGE SQ SCH (10:32)
[2017-01-08] MEDS: POTASSIUM CHLORIDE ER 10 MEQ TAB.ER.PRT PO SCH (10:33)
[2017-01-08] MEDS: AMIODARONE 200 MG TAB PO SCH ×2 (10:33→22:48)
[2017-01-08] MEDS: DONEPEZIL 10 MG TAB PO SCH (10:33)
[2017-01-08] MEDS: FERROUS SULFATE 325 MG TAB PO SCH (10:33)
[2017-01-08] MEDS: METOPROLOL TARTRATE 12.5 MG TAB PO SCH ×2 (10:33→22:47)
[2017-01-08] MEDS: predniSONE 5 MG TAB PO SCH (10:33)
[2017-01-08] MEDS: DIGOXIN 125 MCG TAB PO SCH (10:34)
--- NOTE | 2017-01-08 13:50 | P.PN ---
Subjective patient is lethargic but easily arousable. No events overnight. Objective - Vital Signs Vital signs: Vital Signs Temp 98.1 F 01/08/17 12:30 Pulse 90 01/08/17 12:30 Resp 16 01/08/17 12:30 BP 134/69 01/08/17 12:30 Pulse Ox 98 01/08/17 12:30 Intake & Output 01/07/17 01/08/17 01/08/17 18:59 06:59 18:59 Intake Total 150 1140 90 Output Total 1250 2300 Balance -1100 -1160 90 Weight 67 kg Intake: IV 50 50 Piperacillin-Tazobactam 3 50 50 .375 gm In Dextrose/Water 1 50ml.bag @ 12.5 mls/hr IVPB Q8HR [facility] Rx#: [id number] Intake, IV Titration 850 Amount Sodium Chloride 0.9% 1, 600 000 ml @ 50 mls/hr IV . Q20H [facility] Rx#:[id number] Vancomycin 1,250 mg In 250 Sodium Chloride 0.9% 250 ml @ 125 mls/hr IVPB ONCE ONE Rx#:[id number] Oral 100 240 90 Output: Urine 1250 2300 Other: Voiding Method Indwelling Catheter Indwelling Catheter Indwelling Catheter # Voids 1 # Bowel Movements 1 - Exam General: The patient is awake and alert, in no distress Eye: there is normal conjunctiva bilaterally. Neck: The neck is supple, there is no JVD. Cardiovascular: Normal S1-S2, no S3-S4, no murmurs. Respiratory: Lungs clear to auscultation bilaterally Gastrointestinal: Abdomen is soft, nontender Musculoskeletal: There is no pedal edema. Neurological:. Speech is normal. Skin: Skin is warm and dry - Labs CBC & Chem 7: 01/07/17 06:39 01/07/17 06:39 Labs: Microbiology - Last 24 Hours (Table) 01/02/17 22:16 Blood Culture - Preliminary Blood No Growth after 120 hours 01/04/17 15:25 Blood Culture - Preliminary Blood No Growth after 72 hours 01/04/17 15:10 Blood Culture - Preliminary Blood No Growth after 72 hours Assessment and Plan Plan: 1. Bacterial Bilateral pneumonia: Pulmonary and infectious disease following 2. UTI with Proteus mirabilis on urine culture: Continue Zosyn and vancomycin. 3. Sepsis on admission likely related to UTI and pneumonia. 4. Bacteremia: Blood culture growing Staphylococcus epidermidis and Streptococcus anginosus. Blood culture from 01/02/2017 colitis negative staph. Blood cultures from the are negative so far. Patient is a very poor candidate for a WAGNER 5. Nonsustained ventricular tachycardia: Continue oral amiodarone cardiology following 6. Atrial fibrillation with rapid ventricular response 7. Severe aortic stenosis noted on echo, not a candidate for any intervention 8. Acute on chronic kidney disease: Stage 3. 9. Severe dementia 10. Acute diastolic CHF exacerbation: Echo shows an EF of 55-60%. Chest x-ray showing evidence of fluid overload. P 11. Acute metabolic encephalopathy secondary to pneumonia and UTI 12. Acute kidney injury: Continue to monitor kidney function closely 13. Mild elevation of LFTs. LFTs trending down Today, I reviewed her medication list lab work results. Consider goals of care discussion with patient and her family/guardian given the guarded prognosis.
[2017-01-08] MEDS: traZODone HCL 50 MG TAB PO SCH (22:47)
[2017-01-09] MEDS: IPRATROPIUM-ALBUTEROL 3 ML NEB INHALATION SCH ×4 (07:19→19:16)
[2017-01-09 08:50] LABS: Basophils % (A) 0 %; CHCM 31.7; Eosinophils % (A) 0 %; HGB 10.1 gm/dL (11.4-16.0); Luc # (Auto) 0.08; Luc % (Auto) 1; Lymphocytes # (A) 1.4 k/uL (1.0-4.8); Lymphocytes % (A) 21 %; MCH 32.2 pg (25.0-35.0); MCHC 31.7 g/dL (31.0-37.0); MCV 101.5 fL (80.0-100.0); Macrocytosis Slight; Mean Platelet Volume 7.3; Monocytes # (A) 0.4 k/uL (0-1.0); Monocytes % (A) 5 %; Neutrophils # (A) 4.8 k/uL (1.3-7.7); Neutrophils % (A) 72 %; RBC 3.16 m/uL (3.80-5.40); RDW 14.4 % (11.5-15.5); WBC 6.6 k/uL (3.8-10.6); WBC (Perox) 6.83
[2017-01-09 08:58] LABS: Calcium 8.1 mg/dL (8.4-10.2); Potassium 3.4 mmol/L (3.5-5.1)
[2017-01-09] MEDS: AMIODARONE 200 MG TAB PO SCH ×2 (09:19→22:21)
[2017-01-09] MEDS: PIPERACILLIN-TAZOBACTAM 3.375 GM in DEXTROSE/WATER 1 50ML.BAG IVPB SCH ×2 (09:19→17:25)
[2017-01-09] MEDS: ENOXAPARIN 60 MG/0.6 ML SYRINGE SQ SCH (09:19)
[2017-01-09] MEDS: POTASSIUM CHLORIDE ER 10 MEQ TAB.ER.PRT PO SCH (09:20)
[2017-01-09] MEDS: predniSONE 5 MG TAB PO SCH (09:20)
[2017-01-09] MEDS: FERROUS SULFATE 325 MG TAB PO SCH (09:20)
[2017-01-09] MEDS: DONEPEZIL 10 MG TAB PO SCH (09:20)
[2017-01-09] MEDS: FUROSEMIDE 10 MG/ML 4 ML VIAL IV SCH (09:20)
[2017-01-09] MEDS: METOPROLOL TARTRATE 12.5 MG TAB PO SCH ×2 (09:21→22:21)
[2017-01-09] MEDS: DIGOXIN 125 MCG TAB PO SCH (10:25)
[2017-01-09] MEDS ORDERED: POTASSIUM CHLORIDE ER 20 MEQ TAB.ER PO STA (10:46)
--- NOTE | 2017-01-09 10:52 | P.PN ---
Subjective This is a 86-year-old female from [facility] who presented with fever and decrease in mentation. She does have a known history of dementia. She is found to have a UTI and pneumonia and started on Levaquin. Initially patient admitted to regular medical floor. When into atrial fibrillation with rapid ventricular response and sent to [facility] [place] [facility]. Then she developed nonsustained ventricular tachycardia. CODE BLUE was called she did not require any CPR. She was transferred to the ICU. She had been on Levaquin and there was prolongation of the QT interval. She was evaluated by cardiology and pulmonary service. She did require amiodarone drip and Cardizem drip. She is currently off of these drips and started on oral amiodarone. And she is also been placed on IV Lasix. She's been cleared from consulting physicians to be transferred out of the ICU to [facility]. Patient lying in bed comfortably more alert today. Currently on Zosyn for IV antibiotic coverage. Denies any chest pain or shortness of breath. Denies any nausea or vomiting. 01/05/2017 Patient is on the telemetry floor. Sleeping in bed comfortably. Patient had refused meds early this morning. As well as she is not eating much all of her food per nursing staff. 01/06/2017 Patient more awake today. Lying in bed comfortably. She is orientated to her name. Per nursing she ate some of her breakfast. Was able to take her pills this morning. Patient did have an episode of atrial fibrillation with rapid ventricular response last night was given 1 dose of IV digoxin. And then converted back to sinus rhythm. Cardiology is aware and following. Infectious disease is concerned about infectious endocarditis and recommending a WAGNER. Case discussed with cardiology nurse practitioner. We'll await their further recommendations. 01/09/2017 Patient sleeping in bed. She is still very lethargic. Per nursing she was awake earlier in about 25% of her breakfast and took her morning pills. Patient is now sleeping and will open her eyes. However, she will moan with sternal rub. Also asked if she is any pain she states no Objective - Vital Signs Vital signs: Vital Signs Temp 99.0 F 01/09/17 07:00 Pulse 80 01/09/17 07:33 Resp 16 01/09/17 07:00 BP 147/69 01/09/17 07:00 Pulse Ox 95 01/09/17 07:00 Intake & Output 01/08/17 01/09/17 01/09/17 18:59 06:59 18:59 Intake Total 624 250 Output Total 200 3200 Balance 424 -2950 Weight 67 kg 66.5 kg Intake: IV 50 50 Piperacillin-Tazobactam 3 50 50 .375 gm In Dextrose/Water 1 50ml.bag @ 12.5 mls/hr IVPB Q8HR [facility] Rx#: [id number] Intake, IV Titration 200 200 Amount Sodium Chloride 0.9% 1, 200 200 000 ml @ 50 mls/hr IV . Q20H [facility] Rx#:[id number] Oral 374 Output: Urine 200 3200 Other: Voiding Method Indwelling Catheter Indwelling Catheter # Voids 1 # Bowel Movements 1 - Exam Head normocephalic Neck supple Lungs clear to auscultation bilaterally no wheezing or crackles Heart regular rate and rhythm S1-S2, no rub or gallop positive murmur Abdomen is soft nontender nondistended positive bowel sounds no hepatosplenomegaly Extremities no edema Neuro awake and alert. Lethargic - Labs CBC & Chem 7: 01/09/17 08:43 01/09/17 08:15 Labs: Abnormal Lab Results - Last 24 Hours (Table) 01/09/17 01/09/17 Range/Units 08:15 08:43 RBC 3.16 L (3.80-5.40) m/uL Hgb 10.1 L (11.4-16.0) gm/dL Hct 32.0 L (34.0-46.0) % MCV 101.5 H (80.0-100.0) fL Sodium 150 H (137-145) mmol/L Potassium 3.4 L (3.5-5.1) mmol/L Chloride 113 H (98-107) mmol/L Carbon Dioxide 32 H (22-30) mmol/L BUN 26 H (7-17) mg/dL Creatinine 1.36 H (0.52-1.04) mg/dL Glucose 127 H (74-99) mg/dL Calcium 8.1 L (8.4-10.2) mg/dL Microbiology - Last 24 Hours (Table) 01/02/17 22:16 Blood Culture - Final Blood No Growth after 144 hours 01/04/17 15:25 Blood Culture - Preliminary Blood No Growth after 96 hours 01/04/17 15:10 Blood Culture - Preliminary Blood No Growth after 96 hours Assessment and Plan Plan: 1. Bacterial Bilateral pneumonia: Continue Zosyn. infectious disease following chest x-ray showing persistent slightly improved infiltrate. Pulmonary service has signed off 2. UTI with Proteus mirabilis on urine culture: Continue Zosyn and vancomycin. Infectious disease following 3. Sepsis on admission likely related to UTI and pneumonia. 4. Bacteremia: Blood culture growing Staphylococcus epidermidis and Streptococcus anginosus. Blood culture from 01/02/2017 colitis negative staph. Blood cultures from the are negative so far. Infectious disease monitoring closely. They're concerned of infective endocarditis and recommending WAGNER. Patient evaluated by cardiology. She is a poor candidate for WAGNER 5. Nonsustained ventricular tachycardia: Continue oral amiodarone cardiology following 6. Atrial fibrillation with rapid ventricular response: Cardiology has signed off. Continue amiodarone, digoxin and metoprolol 7. Severe aortic stenosis noted on echo. Cardiology feels is not a good candidate for aortic valve replacement 8. Acute on chronic kidney disease: Stage 3. Kidney function 1.36. Continue to monitor 9. Severe dementia 10. Acute diastolic CHF exacerbation: Echo shows an EF of 55-60%. Discontinue IV Lasix. Restart patient's home Lasix 40 mg by mouth daily 11. Acute metabolic encephalopathy secondary to pneumonia and UTI 12. Mildly elevated LFTs trending down 13. Hypokalemia patient receiving potassium supplement 14. Hypernatremia: Sodium 150. Discontinue normal saline and place patient on D5W at 50 mL an hour I performed an examination of the patient and discussed their management with the physician [employer]. I have reviewed the Physician [employer] Consultant's notes and agree with the documented findings and plan of care
[2017-01-09] MEDS: DEXTROSE 5% IN WATER 1,000 ML IV SCH (11:52)
[2017-01-09] MEDS ORDERED: VANCOMYCIN 1,250 MG in SODIUM CHLORIDE 0.9% 250 ML IVPB ONE (14:00)
--- NOTE | 2017-01-09 17:47 | P.CNNES ---
History of Present Illness Consult date: 01/09/17 History of Present Illness: The patient is an 86-year-old female a resident of [facility]. She was admitted to the hospital on December 31 due to fever and decreased mentation. At a UTI and pneumonia was treated with antibiotics. During her hospital course she will had an episode of atrial fibrillation with rapid ventricular response and was transferred to ICU. She has been followed by cardiology and pulmonary service. The patient apparently was less responsive today and the moaning to sternal rub. Neurology was consult it for evaluation. She is unable to give a history. She has dementia. She is laying in bed with her eyes open and she is able to speak. Not give her name but is able to speak though incoherent. He does not follow any specific command. She does repeat words that are spoken to her. Review of Systems ROS unobtainable: due to mental status Past Medical History Past Medical History: Dementia, Osteoarthritis (OA), Renal Disease Additional Past Medical History / Comment(s): Rhabdomyolysis, UTI, aortic stenosis, atherosclerosis osteoporosis, lupus, hypokalemia, anemia, difficulty ambulating-uses walker and assistance, multiple UTIs. History of Any Multi-Drug Resistant Organisms: None Reported Past Surgical History: No Surgical Hx Reported Past Anesthesia/Blood Transfusion Reactions: Unable to Obtain Additional Past Anesthesia/Blood Transfusion Reaction / Comment(s): no previous transfusion reported. Past Psychological History: Anxiety Smoking Status: Unknown if ever smoked Past Alcohol Use History: None Reported Past Drug Use History: None Reported - Past Family History Mother History Unknown: Yes Family Medical History: No Reported History, Unable to Obtain Father History Unknown: Yes Family Medical History: No Reported History, Unable to Obtain Medications and Allergies Home Medications Medication Instructions Recorded Confirmed Type ALPRAZolam [Xanax] 0.5 mg PO DAILY 12/31/16 12/31/16 History ALPRAZolam [Xanax] 0.5 mg PO DAILY PRN 12/31/16 12/31/16 History Acetaminophen Tab [Tylenol Tab] 650 mg PO Q6H PRN 12/31/16 12/31/16 History Alendronate Sodium Solution 70 mg PO TU 12/31/16 12/31/16 History Bisacodyl [Dulcolax] 10 mg RECTAL DAILY PRN 12/31/16 12/31/16 History Ferrous Sulfate [Feosol] 325 mg PO DAILY 12/31/16 12/31/16 History Furosemide [Lasix] 40 mg PO QAM 12/31/16 12/31/16 History Glycerin/Propylene Glycol 1 drop BOTH EYES Q8H PRN 12/31/16 12/31/16 History [Artificial Tears Drops] Hydrocortisone Cream 1 applic TOPICAL DAILY PRN 12/31/16 12/31/16 History [Hydrocortisone 2.5% Cream] Magnesium Hydroxide [Milk of 7,200 mg PO DAILY PRN 12/31/16 12/31/16 History Magnesia Concentrate] Na Phos,M-B/Na Phos,Di-Ba [Fleet 133 ml RECTAL DAILY PRN 12/31/16 12/31/16 History Adult] Potassium Chloride ER [K-Dur 10] 10 meq PO DAILY 12/31/16 12/31/16 History Rivastigmine Tartrate [Exelon] 3 mg PO BID 12/31/16 12/31/16 History Sulfamethox-Tmp 400-80Mg [Bactrim 1 tab PO BID 12/31/16 12/31/16 History SS 400-80 mg] Talc-Zinc Oxide Powder 1 applic TOPICAL DAILY PRN 12/31/16 12/31/16 History Talc-Zinc Oxide Powder 1 applic TOPICAL TID 12/31/16 12/31/16 History predniSONE 5 mg PO DAILY 12/31/16 12/31/16 History traZODone HCL 25 mg PO HS 12/31/16 12/31/16 History Allergies Allergy/AdvReac Type Severity Reaction Status Date / Time adhesive tape Allergy Rash/Hives Verified 12/31/16 12:30 rivastigmine [From Exelon] Allergy Rash/Hives Verified 12/31/16 12:30 Physical Examination - Vital Signs Vital Signs: Vital Signs Temp Pulse Pulse Resp BP Pulse Ox 01/09/17 16:00 70 16 01/09/17 15:21 72 01/09/17 15:11 72 01/09/17 15:00 98.3 F 70 16 154/72 98 01/09/17 11:22 76 01/09/17 11:12 72 01/09/17 08:00 76 16 01/09/17 07:33 80 01/09/17 07:19 80 01/09/17 07:00 99.0 F 76 16 147/69 95 01/08/17 22:46 111/57 01/08/17 20:00 98.5 F 87 20 94/50 98 01/08/17 19:16 74 01/08/17 19:02 74 Intake and Output 01/09/17 01/09/17 01/09/17 06:59 14:59 22:59 Intake Total 250 Output Total 200 1200 1000 Balance 50 -1200 -1000 Intake: IV 50 Piperacillin-Tazobactam 3 50 .375 gm In Dextrose/Water 1 50ml.bag @ 12.5 mls/hr IVPB Q8HR [facility] Rx#: [id number] Intake, IV Titration 200 Amount Sodium Chloride 0.9% 1, 200 000 ml @ 50 mls/hr IV . Q20H [facility] Rx#:[id number] Output: Urine 200 1200 1000 Other: Voiding Method Indwelling Catheter Indwelling Catheter Indwelling Catheter # Voids 1 1 Weight 66.5 kg 66.5 kg 66.5 kg Patient Weight 01/10/17 06:59 Weight 66.5 kg - Constitutional General appearance: average body habitus - Respiratory Respiratory: lungs clear - Cardiovascular Cardiovascular: normal S1, normal S2 Extremities: no clubbing, cyanosis - Neurologic On neurologic examination: Mental status: The patient is awake she does speak. She does not follow directions. She is oriented 1 there is no obvious aphasia or dysarthria Cranial nerve examination there was no obvious facial asymmetry Motor examination the patient had increased tone in her extremities and was laying in bed with flexion of both knees Gait could not be tested Results - Laboratory Findings CBC and BMP: 01/09/17 08:43 01/09/17 08:15 Abnormal Lab Findings: Abnormal Labs 01/01/17 01/01/17 01/01/17 06:00 06:00 06:00 RBC 3.57 L Hgb Hct MCV 100.9 H Plt Count 105 L Sodium Potassium Chloride 110 H Carbon Dioxide 19 L BUN 21 H Creatinine 1.70 H Glucose POC Glucose (mg/dL) Plasma Lactic Acid Vinicius 5.7 H* Calcium 8.3 L AST Alkaline Phosphatase 152 H Total Protein 5.7 L Albumin 2.8 L Urine Appearance Urine Protein Urine Ketones Urine Blood Ur Leukocyte Esterase Urine RBC Urine WBC Urine WBC Clumps Urine Bacteria Hyaline Casts Urine Mucus Urine Yeast (Budding) 0401/01/17 01/01/17 07:00 07:09 12:12 RBC Hgb Hct MCV Plt Count Sodium Potassium Chloride Carbon Dioxide BUN Creatinine Glucose POC Glucose (mg/dL) 104 H 143 H Plasma Lactic Acid Vinicius Calcium AST Alkaline Phosphatase Total Protein Albumin Urine Appearance Turbid H Urine Protein 1+ H Urine Ketones 1+ H Urine Blood Small H Ur Leukocyte Esterase Large H Urine RBC 6 H Urine WBC >182 H Urine WBC Clumps Few H Urine Bacteria Many H Hyaline Casts 5 H Urine Mucus Rare H Urine Yeast (Budding) Few H 01/02/17 01/02/17 01/03/17 04:23 05:23 06:14 RBC 3.26 L 3.04 L Hgb 10.7 L 9.9 L Hct 33.8 L 30.0 L MCV 103.6 H Plt Count 111 L 136 L Sodium Potassium Chloride 116 H Carbon Dioxide 17 L BUN 18 H Creatinine 1.30 H Glucose 101 H POC Glucose (mg/dL) Plasma Lactic Acid Vinicius Calcium 7.6 L AST 46 H Alkaline Phosphatase Total Protein 5.0 L Albumin 2.3 L Urine Appearance Urine Protein Urine Ketones Urine Blood Ur Leukocyte Esterase Urine RBC Urine WBC Urine WBC Clumps Urine Bacteria Hyaline Casts Urine Mucus Urine Yeast (Budding) 01/03/17 01/03/17 01/04/17 06:14 15:53 06:42 RBC Hgb Hct MCV Plt Count Sodium Potassium 3.4 L Chloride 112 H 112 H Carbon Dioxide BUN Creatinine 1.49 H 1.61 H Glucose 107 H 102 H POC Glucose (mg/dL) 125 H Plasma Lactic Acid Vinicius Calcium 7.5 L 7.7 L AST Alkaline Phosphatase Total Protein 5.1 L 5.6 L Albumin 2.3 L 2.6 L Urine Appearance Urine Protein Urine Ketones Urine Blood Ur Leukocyte Esterase Urine RBC Urine WBC Urine WBC Clumps Urine Bacteria Hyaline Casts Urine Mucus Urine Yeast (Budding) 01/04/17 01/05/17 01/05/17 06:44 06:00 06:00 RBC 3.24 L 3.16 L Hgb 10.5 L 10.3 L Hct 31.9 L 31.3 L MCV Plt Count Sodium Potassium Chloride 110 H Carbon Dioxide BUN 21 H Creatinine 1.60 H Glucose POC Glucose (mg/dL) Plasma Lactic Acid Vinicius Calcium 7.9 L AST 56 H Alkaline Phosphatase 127 H Total Protein 5.3 L Albumin 2.5 L Urine Appearance Urine Protein Urine Ketones Urine Blood Ur Leukocyte Esterase Urine RBC Urine WBC Urine WBC Clumps Urine Bacteria Hyaline Casts Urine Mucus Urine Yeast (Budding) 01/06/17 01/06/17 01/07/17 05:49 05:49 06:39 RBC 3.16 L 3.22 L Hgb 10.2 L 10.4 L Hct 32.3 L 32.5 L MCV 102.1 H 101.2 H Plt Count Sodium Potassium Chloride 111 H Carbon Dioxide BUN 28 H Creatinine 1.40 H Glucose 110 H POC Glucose (mg/dL) Plasma Lactic Acid Vinicius Calcium 8.1 L AST 49 H Alkaline Phosphatase Total Protein 5.2 L Albumin 2.4 L Urine Appearance Urine Protein Urine Ketones Urine Blood Ur Leukocyte Esterase Urine RBC Urine WBC Urine WBC Clumps Urine Bacteria Hyaline Casts Urine Mucus Urine Yeast (Budding) 01/07/17 01/09/17 01/09/17 06:39 08:15 08:43 RBC 3.16 L Hgb 10.1 L Hct 32.0 L MCV 101.5 H Plt Count Sodium 148 H 150 H Potassium 3.4 L Chloride 111 H 113 H Carbon Dioxide 32 H BUN 25 H 26 H Creatinine 1.24 H 1.36 H Glucose 119 H 127 H POC Glucose (mg/dL) Plasma Lactic Acid Vinicius Calcium 8.1 L AST 41 H Alkaline Phosphatase 128 H Total Protein 5.9 L Albumin 2.6 L Urine Appearance Urine Protein Urine Ketones Urine Blood Ur Leukocyte Esterase Urine RBC Urine WBC Urine WBC Clumps Urine Bacteria Hyaline Casts Urine Mucus Urine Yeast (Budding) Assessment and Plan (1) Altered mental status Status: Acute Code(s): R41.82 - ALTERED MENTAL STATUS, UNSPECIFIED (2) Dementia Status: Chronic Code(s): F03.90 - UNSPECIFIED DEMENTIA WITHOUT BEHAVIORAL DISTURBANCE (3) Bilateral pneumonia Status: Acute Code(s): J18.9 - PNEUMONIA, UNSPECIFIED ORGANISM (4) Dehydration Status: Acute Code(s): E86.0 - DEHYDRATION (5) UTI (urinary tract infection) Status: Acute Code(s): N39.0 - URINARY TRACT INFECTION, SITE NOT SPECIFIED Plan: Patient is a pleasant 86-year-old woman with dementia who has had a long hospital course and has multiple medical conditions. The patient had reduced responsiveness today. She has been in the hospital since December. Neurology was consult in today for evaluation of altered mental status. Currently she is more awake apparently been earlier today and she is able to speak and pleasantly confused. Recommend EEG and CT brain underlying medical condition is likely worsened due to under multiple medical acute conditions during her hospital stay including sepsis
[2017-01-09] MEDS: traZODone HCL 50 MG TAB PO SCH (22:21)
[2017-01-10] MEDS: PIPERACILLIN-TAZOBACTAM 3.375 GM in DEXTROSE/WATER 1 50ML.BAG IVPB SCH ×3 (01:05→16:17)
[2017-01-10] MEDS: DEXTROSE 5% IN WATER 1,000 ML IV SCH (06:19)
[2017-01-10] MEDS: ENOXAPARIN 60 MG/0.6 ML SYRINGE SQ SCH ×2 (07:02→23:17)
[2017-01-10] MEDS: IPRATROPIUM-ALBUTEROL 3 ML NEB INHALATION SCH ×4 (07:04→19:46)
[2017-01-10] MEDS: AMIODARONE 200 MG TAB PO SCH ×2 (07:04→23:16)
[2017-01-10] MEDS: DONEPEZIL 10 MG TAB PO SCH (07:05)
[2017-01-10] MEDS: METOPROLOL TARTRATE 12.5 MG TAB PO SCH ×2 (07:05→23:17)
[2017-01-10] MEDS: FUROSEMIDE 40 MG TAB PO SCH (07:05)
[2017-01-10] MEDS: DIGOXIN 125 MCG TAB PO SCH (07:05)
[2017-01-10] MEDS: FERROUS SULFATE 325 MG TAB PO SCH (07:05)
[2017-01-10] MEDS: predniSONE 5 MG TAB PO SCH (07:06)
[2017-01-10] MEDS: POTASSIUM CHLORIDE ER 10 MEQ TAB.ER.PRT PO SCH (07:06)
--- NOTE | 2017-01-10 07:44 | PN ---
DATE OF SERVICE: 01/09/2017 Reason for follow-up is urinary tract infection, possible aspiration pneumonia and bacteremia. INTERVAL HISTORY: The patient remains to be afebrile. He has been breathing more comfortably. Though still not a very good historian and was unable to provide any reliable history. No nausea, vomiting or any diarrhea has been documented. On examination, blood pressure is 154/72 with a pulse of 70, temperature 98.3. She is 98% on 2 liters nasal cannula. General description is an elderly female up in the bed in no distress. RESPIRATORY SYSTEM: Unlabored breathing. Some coarse breath sounds in the base. No wheeze. HEART: S1, S2. Regular rhythm with audible murmur. ABDOMEN: Soft, no tenderness. EXTREMITIES: No edema of feet. LABS: Hemoglobin is 10.1, white count 6.6 with a BUN of 26, creatinine 1.36. DIAGNOSTIC IMPRESSION AND PLAN: Patient admitted to hospital with urinary tract infection. Did have cardiopulmonary arrest with resuscitation and possible aspiration pneumonia. Also with positive blood culture with streptococcus and epi. we requested WAGNER on the basis of the persistently positive blood culture and fever; however, two cardiologists have given their opinion of not doing such. Will go ahead and discontinue the vancomycin, keep the patient on Zosyn and treat the pneumonia and urinary tract infection. If any recurrence of fever, will be recultured and antibiotics will be adjusted further. Plan of care was discussed with the nurse practitioner for the primary team. MARI
[2017-01-10 08:21] LABS: Basophils % (A) 0 %; CH 32.2; CHCM 31.6; Eosinophils % (A) 0 %; HCT 34.5 % (34.0-46.0); HDW 2.55; HGB 10.8 gm/dL (11.4-16.0); Luc % (Auto) 1; Lymphocytes # (A) 1.6 k/uL (1.0-4.8); Lymphocytes % (A) 19 %; MCH 32.1 pg (25.0-35.0); MCHC 31.3 g/dL (31.0-37.0); MCV 102.5 fL (80.0-100.0); Macrocytosis Slight; Monocytes # (A) 0.3 k/uL (0-1.0); Monocytes % (A) 4 %; Neutrophils # (A) 6.4 k/uL (1.3-7.7); Neutrophils % (A) 76 %; RBC 3.37 m/uL (3.80-5.40); RDW 14.6 % (11.5-15.5); WBC 8.4 k/uL (3.8-10.6); WBC (Perox) 8.67
[2017-01-10 08:22] LABS: Calcium 8.4 mg/dL (8.4-10.2); Potassium 3.3 mmol/L (3.5-5.1)
--- NOTE | 2017-01-10 15:36 | CT ---
EXAMINATION TYPE: CT brain wo con DATE OF EXAM: 01/10/2017 3:29 PM COMPARISON: 12/01/2013 HISTORY: 86-year-old female with mental status changes TECHNIQUE: Examination was done in axial plane without intravenous contrast. Coronal and sagittal r econstructions performed. CT DLP: 1287 mGycm Automated exposure control for dose reduction was used. FINDINGS: There is no evidence of acute intracranial hemorrhage, acute ischemic changes, mass, mass-effect, or extra-axial fluid collection. There is no effacement of cerebral sulci or basal subarachnoid cister ns. There is no midline shift. Rojas-white matter distinction is preserved. Redemonstrated mild ventriculomegaly. Greenfield ratio is calculated at 0.33. There is moderate confluent periventricular and deep white matter hypodensities. Orbits and globes are intact. Paranasal sinuses and mastoid air cells well pneumatized. IMPRESSION: Stable mild ventriculomegaly, probably on an ex vacuo basis. Moderate changes of chronic small vessel ischemic disease also seen. No acute intracranial abnormality seen.
[2017-01-10] MEDS ORDERED: Potassium Replacement Protocol 1 EACH MISC MISCELLANE PRN (15:56)
[2017-01-10] MEDS: POTASSIUM CHLORIDE 10 MEQ in WATER FOR INJECTION 1 100ML.BAG IVPB SCH ×2 (16:38→18:01)
--- NOTE | 2017-01-10 19:24 | PN ---
DATE OF SERVICE: 01/10/2017 REASON FOR FOLLOWUP: Possible aspiration pneumonia and UTI. INTERVAL HISTORY: The patient is afebrile. She has been breathing comfortably. She is hemodynamically stable. She was sleepy and unable to provide any history. No significant changes have been noticed by the R.N. On examination, blood pressure 154/76 with a pulse of 77, temperature 98.9. She is 97% on room air. General description is an elderly female lying in bed in no distress. RESPIRATORY SYSTEM: Unlabored breathing. Clear to auscultation anteriorly. HEART: S1, S2. Regular rate and rhythm. ABDOMEN: Soft. No tenderness. EXTREMITIES: No edema of feet. LABS: BUN of 25, creatinine 1.11. Hemoglobin is 10.8, white count 8.4. All blood cultures have been negative. DIAGNOSTIC IMPRESSION AND PLAN: Patient admitted to the hospital with urinary tract infection that had a component of possible aspiration pneumonitis in a patient who did have ventricular tachycardia. Patient is currently covered with Zosyn. That will be continued for now, switching her to oral to finish her antibiotic therapy. pt already is improved. Continue supportive care. ANASTACIOD
--- NOTE | 2017-01-10 20:02 | P.PN ---
Subjective Principal diagnosis: Bilateral pneumonia Patient is an 86-year-old female admitted to [facility] with severe shortness of breath chest x-ray revealed evidence of bilateral pneumonia initially she was admitted to intensive care unit currently she is on telemetry floor. Objective - Vital Signs Vital signs: Vital Signs Temp 98.1 F 01/10/17 15:00 Pulse 74 01/10/17 19:56 Resp 18 01/10/17 15:30 BP 136/75 01/10/17 15:00 Pulse Ox 96 01/10/17 15:00 Intake & Output 01/10/17 01/10/17 01/11/17 06:59 18:59 06:59 Intake Total 1230 610 Output Total 1900 3000 Balance -670 -2390 Weight 66.5 kg Intake: IV 50 50 Piperacillin-Tazobactam 3 50 50 .375 gm In Dextrose/Water 1 50ml.bag @ 12.5 mls/hr IVPB Q8HR [facility] Rx#: [id number] Intake, IV Titration 500 Amount Dextrose 5% in Water 1, 500 000 ml @ 50 mls/hr IV . Q20H [facility]A Rx#:[id number] Oral 1180 60 Output: Urine 1900 3000 Other: Voiding Method Indwelling Catheter Indwelling Catheter # Voids 1 0 - Exam HEENT head normocephalic and atraumatic Neck is supple no JVD no goiter no lymphadenopathy Chest exam reveals a crackles in both lung ling no wheezing Cardiac exam reveals regular heart sounds no murmurs Abdomen is soft nontender no organomegaly Extremity exam reveals no edema no cyanosis or clubbing - Labs CBC & Chem 7: 01/10/17 07:35 01/10/17 07:35 Labs: Abnormal Lab Results - Last 24 Hours (Table) 01/10/17 01/10/17 Range/Units 07:35 07:35 RBC 3.37 L (3.80-5.40) m/uL Hgb 10.8 L (11.4-16.0) gm/dL MCV 102.5 H (80.0-100.0) fL Sodium 151 H (137-145) mmol/L Potassium 3.3 L (3.5-5.1) mmol/L Chloride 113 H (98-107) mmol/L BUN 25 H (7-17) mg/dL Creatinine 1.11 H (0.52-1.04) mg/dL Glucose 123 H (74-99) mg/dL Microbiology - Last 24 Hours (Table) 01/04/17 15:25 Blood Culture - Final Blood No Growth after 144 hours 01/04/17 15:10 Blood Culture - Final Blood No Growth after 144 hours Assessment and Plan Plan: #1 bilateral pneumonia #2 urinary tract infection #3 sepsis #4 atrial fibrillation was rapid ventricular response, currently in normal sinus rhythm #5 nonsustained V. tach #6 underlying history of dementia #7 underlying history of physical debility patient could ambulate a few steps was a use of a walker at [facility] prior to admission #8 underlying history of aortic stenosis #9 acute kidney injury with elevated creatinine to 1.49 #10 CODE STATUS at this time is still full code, prognosis is poor due to patient age and multiple medical problems At this time her power of workers compensation attorney is her brother and we are trying to reach him to discuss CODE STATUS and further therapeutic options. #11 mental status changes with increased somnolence neurology consultation has been requested computed tomography scan of the brain has been ordered continue with po Cordarone, continue with IV fluid support Awaiting blood culture and urine culture and sputum culture Pulmonary and cardiology are following, patient is improving gradually Prognosis is poor
[2017-01-10] MEDS: traZODone HCL 50 MG TAB PO SCH (23:16)
[2017-01-11] MEDS: DEXTROSE 5% IN WATER 1,000 ML IV SCH ×2 (03:16→12:53)
[2017-01-11] MEDS: IPRATROPIUM-ALBUTEROL 3 ML NEB INHALATION SCH ×4 (07:15→18:57)
[2017-01-11] MEDS: ENOXAPARIN 60 MG/0.6 ML SYRINGE SQ SCH ×2 (07:59→21:39)
[2017-01-11] MEDS: FERROUS SULFATE 325 MG TAB PO SCH (08:01)
[2017-01-11] MEDS: DIGOXIN 125 MCG TAB PO SCH (08:01)
[2017-01-11] MEDS: POTASSIUM CHLORIDE ER 10 MEQ TAB.ER.PRT PO SCH (08:01)
[2017-01-11] MEDS: METOPROLOL TARTRATE 12.5 MG TAB PO SCH ×2 (08:01→21:38)
[2017-01-11] MEDS: AMIODARONE 200 MG TAB PO SCH ×2 (08:01→21:38)
[2017-01-11] MEDS: FUROSEMIDE 40 MG TAB PO SCH (08:01)
[2017-01-11] MEDS: DONEPEZIL 10 MG TAB PO SCH (08:01)
[2017-01-11] MEDS: predniSONE 5 MG TAB PO SCH (08:02)
[2017-01-11 08:20] LABS: Basophils # (A) 0.1 k/uL (0-0.2); Basophils % (A) 1 %; CH 32.1; CHCM 31.7; Eosinophils % (A) 0 %; HCT 33.7 % (34.0-46.0); HDW 2.51; HGB 10.7 gm/dL (11.4-16.0); Luc % (Auto) 1; Lymphocytes # (A) 1.7 k/uL (1.0-4.8); Lymphocytes % (A) 23 %; MCH 32.4 pg (25.0-35.0); MCHC 31.8 g/dL (31.0-37.0); MCV 101.8 fL (80.0-100.0); Macrocytosis Slight; Mean Platelet Volume 7.3; Monocytes # (A) 0.4 k/uL (0-1.0); Monocytes % (A) 5 %; Neutrophils # (A) 5.1 k/uL (1.3-7.7); Neutrophils % (A) 70 %; RBC 3.31 m/uL (3.80-5.40); RDW 14.5 % (11.5-15.5); WBC 7.3 k/uL (3.8-10.6); WBC (Perox) 7.51
[2017-01-11 08:51] LABS: Calcium 8.2 mg/dL (8.4-10.2); Potassium 3.2 mmol/L (3.5-5.1)
--- NOTE | 2017-01-11 10:28 | EEG ---
DATE OF SERVICE: 01/10/2017 INDICATIONS FOR EXAMINATION: This patient is an 86-year-old female being evaluated for altered mental status and confusion. Patient has history of underlying dementia and urinary tract infection. AGE: 86Y EEG FINDINGS: A routine 21-channel, awake digital EEG recording was accomplished utilizing the 10 - 20 international system with bipolar and referential montages. The background activity in the most alert resting state consists of a low to medium amplitude, poorly developed and poorly sustained 5 - 6 Hz activity over the posterior head regions. This posterior rhythm attenuates to eye opening. There is a small amount of low amplitude 18 - 20 Hz beta activity seen maximally over the anterior head regions. Muscle and movement artifact was observed on a few occasions during the tracing. Hyperventilation was not performed. Photic stimulation at flash frequencies of 2 - 30 Hz produced a minimal occipital driving response. No epileptiform discharges were seen. IMPRESSION: This EEG gives evidence of a severe widespread diffuse disturbance in cerebral function. The EEG failed to reveal any focal, lateralized or epileptiform abnormalities. Clinical correlation is recommended.
[2017-01-11] MEDS ORDERED: POTASSIUM CHLORIDE 10 MEQ, LIDOCAINE 2% INJ 10 MG in SODIUM CHLORIDE 0.9% 100 ML IV SCH (11:00)
[2017-01-11] MEDS ORDERED: AMOXIC-POT CLAV 875-125MG 1 EACH TAB PO SCH (13:30)
[2017-01-11 14:29] LABS: Magnesium 2.4 mg/dL (1.6-2.3); Potassium 3.6 mmol/L (3.5-5.1)
--- NOTE | 2017-01-11 14:47 | PN ---
DATE OF SERVICE: 01/11/2017 Reason for followup is aspiration pneumonia and UTI. INTERVAL HISTORY: The patient is afebrile. She seems to be sleeping but has been breathing comfortably in her room. No nausea or vomiting has been noticed, only diarrhea documented by the chart. No new events per the R.N. On examination, blood pressure is 147/86 with a pulse of 74, temperature 97.7, she is 97% on room air. General description is an elderly female, lying in bed in no distress. RESPIRATORY SYSTEM: Unlabored breathing with decreased breath sound at the base. No wheeze. HEART: S1, S2, regular rate and rhythm. ABDOMEN: Soft, no tenderness. LABS: Hemoglobin is 10.7, white count is 7.3 with a BUN of 25, creatinine is 1.13 as of yesterday. DIAGNOSTIC IMPRESSION AND PLAN: Patient admitted to the hospital with urinary tract infection in a patient who also had ventricular tachycardia and possible aspiration pneumonia. However, the patient received more than 10 days of IV Zosyn therapy. Antibiotic will be adjusted to oral Augmentin and watching her clinical course closely. Continue supportive care. MARI
--- NOTE | 2017-01-11 17:46 | P.PN ---
Subjective Principal diagnosis: Bilateral pneumonia Patient is an 86-year-old female admitted to [facility] with severe shortness of breath chest x-ray revealed evidence of bilateral pneumonia initially she was admitted to intensive care unit currently she is on telemetry floor. Objective - Vital Signs Vital signs: Vital Signs Temp 98.2 F 01/11/17 15:00 Pulse 68 01/11/17 15:26 Resp 18 01/11/17 15:00 BP 158/83 01/11/17 15:00 Pulse Ox 99 01/11/17 15:00 Intake & Output 01/10/17 01/11/17 01/11/17 18:59 06:59 18:59 Intake Total 610 910 500 Output Total 3000 3000 2000 Balance -2390 -2090 -1500 Weight 66.5 kg Intake: IV 50 Piperacillin-Tazobactam 3 50 .375 gm In Dextrose/Water 1 50ml.bag @ 12.5 mls/hr IVPB Q8HR [facility] Rx#: [id number] Intake, IV Titration 500 850 500 Amount Dextrose 5% in Water 1, 500 850 400 000 ml @ 50 mls/hr IV . Q20H [facility] Rx#:[id number] Potassium Chloride 10 meq 100 Lidocaine 2% Inj 10 mg In Sodium Chloride 0.9% 100 ml @ 100 mls/hr IV Q1HR [facility]A Rx#:[id number] Oral 60 60 Output: Urine 3000 3000 2000 Other: Voiding Method Indwelling Catheter Indwelling Catheter Indwelling Catheter # Voids 0 0 0 - Exam HEENT head normocephalic and atraumatic Neck is supple no JVD no goiter no lymphadenopathy Chest exam reveals a crackles in both lung ling no wheezing Cardiac exam reveals regular heart sounds no murmurs Abdomen is soft nontender no organomegaly Extremity exam reveals no edema no cyanosis or clubbing - Labs CBC & Chem 7: 01/11/17 07:48 01/11/17 13:53 Labs: Abnormal Lab Results - Last 24 Hours (Table) 01/11/17 01/11/17 01/11/17 Range/Units 07:48 07:48 13:53 RBC 3.31 L (3.80-5.40) m/uL Hgb 10.7 L (11.4-16.0) gm/dL Hct 33.7 L (34.0-46.0) % MCV 101.8 H (80.0-100.0) fL Sodium 148 H (137-145) mmol/L Potassium 3.2 L (3.5-5.1) mmol/L Chloride 111 H (98-107) mmol/L Carbon Dioxide 32 H (22-30) mmol/L BUN 25 H (7-17) mg/dL Creatinine 1.13 H (0.52-1.04) mg/dL Glucose 118 H (74-99) mg/dL Calcium 8.2 L (8.4-10.2) mg/dL Magnesium 2.4 H (1.6-2.3) mg/dL Microbiology - Last 24 Hours (Table) 01/04/17 15:25 Blood Culture - Final Blood No Growth after 144 hours 01/04/17 15:10 Blood Culture - Final Blood No Growth after 144 hours Assessment and Plan Plan: #1 bilateral pneumonia #2 urinary tract infection #3 sepsis #4 atrial fibrillation was rapid ventricular response, currently in normal sinus rhythm #5 nonsustained V. tach #6 underlying history of dementia #7 underlying history of physical debility patient could ambulate a few steps was a use of a walker at [facility] prior to admission #8 underlying history of aortic stenosis #9 acute kidney injury with elevated creatinine to 1.49 #10 CODE STATUS at this time is still full code, prognosis is poor due to patient age and multiple medical problems At this time her power of erisa attorney is her brother and we are trying to reach him to discuss CODE STATUS and further therapeutic options. #11 mental status changes with increased somnolence neurology consultation has been requested computed tomography scan of the brain was done and did not reveal any acute abnormality EEG was also done, no recommendation by neurology. Patient is still very somnolent and is sleeping most of the day she is refusing most oral intake, this is a significant change from her baseline at the longterm where she was walking with a walker and eating. Will discuss with neurology further therapeutic steps. continue with po Cordarone, continue with IV fluid support Awaiting blood culture and urine culture and sputum culture Pulmonary and cardiology are following, patient is improving gradually Prognosis is poor
[2017-01-11] MEDS: PIPERACILLIN-TAZOBACTAM 3.375 GM in DEXTROSE/WATER 1 50ML.BAG IVPB SCH (18:51)
--- NOTE | 2017-01-11 20:08 | P.PN ---
Subjective Principal diagnosis: Altered mental status The patient is a 86-year-old woman who was admitted to the hospital with UTI and aspiration pneumonia. She has had a long and complicated hospital course. Neurology is requested to see the patient regarding altered mental status. Today she is laying in bed with eyes closed but easily arousable. She is oriented to person she knows she is in the hospital she is unable to give the year she was able to add but had difficulty with subtraction's when asked how she felt she said she was tired. She did follow commands. Objective - Vital Signs Vital signs: Vital Signs Temp 98.2 F 01/11/17 15:00 Pulse 76 01/11/17 19:03 Resp 18 01/11/17 15:00 BP 158/83 01/11/17 15:00 Pulse Ox 99 01/11/17 15:00 Intake & Output 01/11/17 01/11/17 01/12/17 06:59 18:59 06:59 Intake Total 910 500 Output Total 3000 2000 Balance -2089 -1500 Weight 66.5 kg Intake: Intake, IV Titration 850 500 Amount Dextrose 5% in Water 1, 850 400 000 ml @ 50 mls/hr IV . Q20H [facility] Rx#:[id number] Potassium Chloride 10 meq 100 Lidocaine 2% Inj 10 mg In Sodium Chloride 0.9% 100 ml @ 100 mls/hr IV Q1HR [facility] Rx#:[id number] Oral 60 Output: Urine 3000 2000 Other: Voiding Method Indwelling Catheter Indwelling Catheter # Voids 0 0 - Constitutional General appearance: Present: average body habitus - EENT Eyes: Present: EOMI, PERRLA ENT: Present: hard of hearing - Respiratory Respiratory: bilateral: CTA - Cardiovascular Heart sounds: normal: S1, S2 - Neurologic Neurologic: Present: CNII-XII intact - Musculoskeletal Musculoskeletal: Present: generalized weakness - Labs CBC & Chem 7: 01/11/17 07:48 01/11/17 13:53 Labs: Abnormal Lab Results - Last 24 Hours (Table) 01/11/17 01/11/17 01/11/17 Range/Units 07:48 07:48 13:53 RBC 3.31 L (3.80-5.40) m/uL Hgb 10.7 L (11.4-16.0) gm/dL Hct 33.7 L (34.0-46.0) % MCV 101.8 H (80.0-100.0) fL Sodium 148 H (137-145) mmol/L Potassium 3.2 L (3.5-5.1) mmol/L Chloride 111 H (98-107) mmol/L Carbon Dioxide 32 H (22-30) mmol/L BUN 25 H (7-17) mg/dL Creatinine 1.13 H (0.52-1.04) mg/dL Glucose 118 H (74-99) mg/dL Calcium 8.2 L (8.4-10.2) mg/dL Magnesium 2.4 H (1.6-2.3) mg/dL Microbiology - Last 24 Hours (Table) 01/04/17 15:25 Blood Culture - Final Blood No Growth after 144 hours 01/04/17 15:10 Blood Culture - Final Blood No Growth after 144 hours Assessment and Plan (1) Altered mental status Status: Acute Code(s): R41.82 - ALTERED MENTAL STATUS, UNSPECIFIED (2) Dementia Status: Chronic Code(s): F03.90 - UNSPECIFIED DEMENTIA WITHOUT BEHAVIORAL DISTURBANCE (3) Bilateral pneumonia Status: Acute Code(s): J18.9 - PNEUMONIA, UNSPECIFIED ORGANISM (4) Dehydration Status: Acute Code(s): E86.0 - DEHYDRATION (5) UTI (urinary tract infection) Status: Acute Code(s): N39.0 - URINARY TRACT INFECTION, SITE NOT SPECIFIED Plan: The patient is an 86-year-old woman with underlying dementia was admitted to the hospital with sepsis. She had UTI and aspiration pneumonia and has been on antibiotics. She has had a complicated stay in the hospital. The patient has clinical signs of underlying encephalopathy likely secondary to sepsis and other underlying medical conditions her EEG reveals a severe slowing which would be consistent with her dementia and encephalopathy.
[2017-01-11] MEDS: traZODone HCL 50 MG TAB PO SCH (21:38)
[2017-01-12] MEDS: PIPERACILLIN-TAZOBACTAM 3.375 GM in DEXTROSE/WATER 1 50ML.BAG IVPB SCH ×4 (01:08→23:41)
[2017-01-12] MEDS: DEXTROSE 5% IN WATER 1,000 ML IV SCH ×3 (07:03→18:19)
[2017-01-12] MEDS: IPRATROPIUM-ALBUTEROL 3 ML NEB INHALATION SCH ×4 (07:08→19:01)
[2017-01-12] MEDS: FUROSEMIDE 40 MG TAB PO SCH (08:43)
[2017-01-12] MEDS: DIGOXIN 125 MCG TAB PO SCH (08:43)
[2017-01-12] MEDS: predniSONE 5 MG TAB PO SCH (08:43)
[2017-01-12] MEDS: DONEPEZIL 10 MG TAB PO SCH (08:43)
[2017-01-12] MEDS: ENOXAPARIN 60 MG/0.6 ML SYRINGE SQ SCH ×2 (08:43→21:10)
[2017-01-12] MEDS: POTASSIUM CHLORIDE ER 10 MEQ TAB.ER.PRT PO SCH (08:44)
[2017-01-12] MEDS: METOPROLOL TARTRATE 12.5 MG TAB PO SCH ×2 (08:44→19:59)
[2017-01-12] MEDS: FERROUS SULFATE 325 MG TAB PO SCH (08:44)
[2017-01-12] MEDS: AMIODARONE 200 MG TAB PO SCH ×2 (08:44→19:59)
[2017-01-12 08:49] LABS: Anion Gap 7 mmol/L; Blood Urea Nitrogen 24 mg/dL (7-17); Calcium 8.4 mg/dL (8.4-10.2); Carbon Dioxide 27 mmol/L (22-30); Chloride 112 mmol/L (98-107); Glucose 117 mg/dL (74-99); Non-African American GFR(MDRD) 59 (>60 ml/min/1.73 sqM); Potassium 3.7 mmol/L (3.5-5.1); Sodium 146 mmol/L (137-145)
[2017-01-12 09:37] LABS: Basophils % (A) 0 %; CH 32.3; CHCM 31.5; Eosinophils % (A) 1 %; HCT 34.2 % (34.0-46.0); HGB 10.8 gm/dL (11.4-16.0); Luc # (Auto) 0.09; Luc % (Auto) 1; Lymphocytes # (A) 1.3 k/uL (1.0-4.8); Lymphocytes % (A) 20 %; MCH 32.5 pg (25.0-35.0); MCHC 31.5 g/dL (31.0-37.0); MCV 103.1 fL (80.0-100.0); Macrocytosis Slight; Mean Platelet Volume 7.1; Monocytes # (A) 0.3 k/uL (0-1.0); Monocytes % (A) 4 %; Neutrophils # (A) 4.9 k/uL (1.3-7.7); Neutrophils % (A) 74 %; RBC 3.31 m/uL (3.80-5.40); RDW 14.6 % (11.5-15.5); WBC 6.6 k/uL (3.8-10.6); WBC (Perox) 7.18
[2017-01-12] MEDS ORDERED: methylPREDNISolone SOD SUCCI 125 MG/2 ML VIAL IV STA (10:48)
--- NOTE | 2017-01-12 13:13 | P.PN ---
Subjective This is a 86-year-old female from [facility] who presented with fever and decrease in mentation. She does have a known history of dementia. She is found to have a UTI and pneumonia and started on Levaquin. Initially patient admitted to regular medical floor. When into atrial fibrillation with rapid ventricular response and sent to [facility]. Then she developed nonsustained ventricular tachycardia. CODE BLUE was called she did not require any CPR. She was transferred to the ICU. She had been on Levaquin and there was prolongation of the QT interval. She was evaluated by cardiology and pulmonary service. She did require amiodarone drip and Cardizem drip. She is currently off of these drips and started on oral amiodarone. And she is also been placed on IV Lasix. She's been cleared from consulting physicians to be transferred out of the ICU to [facility]. Patient lying in bed comfortably more alert today. Currently on Zosyn for IV antibiotic coverage. Denies any chest pain or shortness of breath. Denies any nausea or vomiting. 01/05/2017 Patient is on the telemetry floor. Sleeping in bed comfortably. Patient had refused meds early this morning. As well as she is not eating much all of her food per nursing staff. 01/06/2017 Patient more awake today. Lying in bed comfortably. She is orientated to her name. Per nursing she ate some of her breakfast. Was able to take her pills this morning. Patient did have an episode of atrial fibrillation with rapid ventricular response last night was given 1 dose of IV digoxin. And then converted back to sinus rhythm. Cardiology is aware and following. Infectious disease is concerned about infectious endocarditis and recommending a WAGNER. Case discussed with cardiology nurse practitioner. We'll await their further recommendations. 01/09/2017 Patient sleeping in bed. She is still very lethargic. Per nursing she was awake earlier in about 25% of her breakfast and took her morning pills. Patient is now sleeping and will open her eyes. However, she will moan with sternal rub. Also asked if she is any pain she states no 01/12/2017 patient is still very lethargic throughout the day. Patient has had decreased appetite. And refusing to take pills. Patient lying comfortably in bed. She is arousable. Reports that she has no pain. And reports that she is not hungry. Objective - Vital Signs Vital signs: Vital Signs Temp 98.2 F 01/12/17 07:00 Pulse 76 01/12/17 11:20 Resp 16 01/12/17 07:00 BP 163/75 01/12/17 07:00 Pulse Ox 96 01/12/17 07:00 Intake & Output 01/11/17 01/12/17 01/12/17 18:59 06:59 18:59 Intake Total 500 Output Total 2000 500 Balance -1500 -500 Weight 63 kg Intake: Intake, IV Titration 500 Amount Dextrose 5% in Water 1, 400 000 ml @ 50 mls/hr IV . Q20H [facility] Rx#:[id number] Potassium Chloride 10 meq 100 Lidocaine 2% Inj 10 mg In Sodium Chloride 0.9% 100 ml @ 100 mls/hr IV Q1HR [facility]IRA Rx#:[id number] Output: Urine 2000 500 Other: Voiding Method Indwelling Catheter Indwelling Catheter Indwelling Catheter # Voids 0 # Bowel Movements 1 - Exam Head normocephalic Neck supple Lungs clear to auscultation bilaterally no wheezing or crackles Heart regular rate and rhythm S1-S2, no rub or gallop positive murmur Abdomen is soft nontender nondistended positive bowel sounds no hepatosplenomegaly Extremities no edema Neuro awake and alert. Lethargic - Labs CBC & Chem 7: 01/12/17 09:18 01/12/17 07:49 Labs: Abnormal Lab Results - Last 24 Hours (Table) 01/11/17 01/12/17 01/12/17 Range/Units 13:53 07:49 09:18 RBC 3.31 L (3.80-5.40) m/uL Hgb 10.8 L (11.4-16.0) gm/dL MCV 103.1 H (80.0-100.0) fL Sodium 146 H (137-145) mmol/L Chloride 112 H (98-107) mmol/L BUN 24 H (7-17) mg/dL Glucose 117 H (74-99) mg/dL Magnesium 2.4 H (1.6-2.3) mg/dL Microbiology - Last 24 Hours (Table) 01/02/17 22:28 Blood Culture - Final Blood Assessment and Plan Plan: 1. Bacterial Bilateral pneumonia: Continue Zosyn. infectious disease following chest x-ray showing persistent slightly improved infiltrate. Pulmonary service has signed off. Infectious disease is recommending Augmentin. However patient is refusing to take oral antibiotics 2. UTI with Proteus mirabilis on urine culture: Continue Zosyn . Infectious disease following 3. Sepsis on admission likely related to UTI and pneumonia. 4. Bacteremia: Blood culture growing Staphylococcus epidermidis and Streptococcus anginosus. Blood culture from 01/02/2017 colitis negative staph. Blood cultures from the are negative so far. Infectious disease monitoring closely. They're concerned of infective endocarditis and recommending WAGNER. Patient evaluated by cardiology. She is a poor candidate for WAGNER 5. Nonsustained ventricular tachycardia: Continue oral amiodarone cardiology following 6. Atrial fibrillation with rapid ventricular response: Cardiology has signed off. Continue amiodarone, digoxin and metoprolol 7. Severe aortic stenosis noted on echo. Cardiology feels is not a good candidate for aortic valve replacement 8. Acute on chronic kidney disease: Stage 3. Kidney function has normalized 9. Severe dementia 10. Acute diastolic CHF exacerbation: Echo shows an EF of 55-60%. Discontinue IV Lasix. Restart patient's home Lasix 40 mg by mouth daily 11. Acute metabolic encephalopathy secondary to pneumonia and UTI. Patient evaluated by neurology in regards to her somnolence. EEG had shown no acute abnormality. There are findings of encephalopathy and dementia. Case discussed with neurology in the recommending the Provigil 100 mg daily for 2 days. And monitor patient. We will also give patient 1 dose of IV Solu-Medrol and start Megace to help stimulate appetite. 12. Mildly elevated LFTs trending down 13. Hypokalemia patient receiving potassium supplement 14. Hypernatremia: Sodium 146. Discontinue normal saline and place patient on D5W at 50 mL an hour 15. CODE STATUS no code I performed an examination of the patient and discussed their management with the physician [employer]. I have reviewed the Physician Java Developer [employer]'s notes and agree with the documented findings and plan of care
[2017-01-12 13:14] VITALS: BMI 23.8
[2017-01-12] MEDS: MODAFINIL 100 MG TAB PO SCH (14:32)
[2017-01-12] MEDS: MEGESTROL 400 MG/10 ML CUP PO SCH (19:58)
[2017-01-12] MEDS: traZODone HCL 50 MG TAB PO SCH (19:59)
--- NOTE | 2017-01-12 22:48 | PN ---
DATE OF SERVICE: 01/12/2017 Reason for follow-up is UTI and aspiration pneumonia. INTERVAL HISTORY: The patient is afebrile. Unfortunately the patient Oral intakes remains to be very poor to none as she was unable to take her Augmentin yesterday which will be switched back to Zosyn. The patient remains with no oral intake. No nausea or vomiting. No diarrhea. Unable to provide any history. On examination, blood pressure is 129/73 with a pulse of 66, temperature 97.4. She is 95% on room air. General description is an elderly female lying in bed in no distress. RESPIRATORY SYSTEM: Unlabored breathing with decreased breath sounds at that the bases. HEART: S1, S2. Regular rate and rhythm. ABDOMEN: Soft, no tenderness. LABS: Hemoglobin is 10.8, white count of 3.1, white count 6.6 with a BUN of 24, creatinine 0.98. DIAGNOSTIC IMPRESSION AND PLAN: Patient with urinary tract infection and possible aspiration pneumonia. Currently covered with Zosyn. Oral intake remains to be poor. Awaiting final decision from the family with possible hospice versus PEG tube. Continue Zosyn at this time. Overall prognosis remains poor. MTDD
[2017-01-13] MEDS: IPRATROPIUM-ALBUTEROL 3 ML NEB INHALATION SCH ×4 (07:45→20:25)
[2017-01-13 08:59] LABS: Basophils % (A) 0 %; CH 32.5; CHCM 32.4; Eosinophils % (A) 0 %; HCT 33.4 % (34.0-46.0); HDW 2.52; HGB 10.8 gm/dL (11.4-16.0); Luc # (Auto) 0.07; Luc % (Auto) 1; Lymphocytes # (A) 1.3 k/uL (1.0-4.8); Lymphocytes % (A) 19 %; MCH 32.5 pg (25.0-35.0); MCHC 32.3 g/dL (31.0-37.0); MCV 100.8 fL (80.0-100.0); Macrocytosis Slight; Mean Platelet Volume 7.5; Monocytes # (A) 0.3 k/uL (0-1.0); Monocytes % (A) 4 %; Neutrophils # (A) 5.3 k/uL (1.3-7.7); Neutrophils % (A) 76 %; RBC 3.31 m/uL (3.80-5.40); RDW 14.7 % (11.5-15.5); WBC 7.1 k/uL (3.8-10.6)
[2017-01-13] MEDS: PIPERACILLIN-TAZOBACTAM 3.375 GM in DEXTROSE/WATER 1 50ML.BAG IVPB SCH ×2 (09:02→18:06)
[2017-01-13 09:26] LABS: Anion Gap 4 mmol/L; Blood Urea Nitrogen 23 mg/dL (7-17); Calcium 8.2 mg/dL (8.4-10.2); Carbon Dioxide 28 mmol/L (22-30); Chloride 107 mmol/L (98-107); Glucose 113 mg/dL (74-99); Non-African American GFR(MDRD) 52 (>60 ml/min/1.73 sqM); Potassium 3.2 mmol/L (3.5-5.1); Sodium 139 mmol/L (137-145)
[2017-01-13] MEDS: DIGOXIN 125 MCG TAB PO SCH (09:28)
[2017-01-13] MEDS: FUROSEMIDE 40 MG TAB PO SCH (09:28)
[2017-01-13] MEDS: MEGESTROL 400 MG/10 ML CUP PO SCH ×2 (09:28→21:59)
[2017-01-13] MEDS: DONEPEZIL 10 MG TAB PO SCH (09:28)
[2017-01-13] MEDS: FERROUS SULFATE 325 MG TAB PO SCH (09:28)
[2017-01-13] MEDS: AMIODARONE 200 MG TAB PO SCH ×2 (09:28→21:59)
[2017-01-13] MEDS: predniSONE 5 MG TAB PO SCH (09:29)
[2017-01-13] MEDS: METOPROLOL TARTRATE 12.5 MG TAB PO SCH ×2 (09:29→21:59)
[2017-01-13] MEDS: POTASSIUM CHLORIDE ER 10 MEQ TAB.ER.PRT PO SCH (09:29)
[2017-01-13] MEDS: MODAFINIL 100 MG TAB PO SCH (09:29)
[2017-01-13] MEDS: DEXTROSE 5% IN WATER 1,000 ML IV SCH ×2 (09:30→14:59)
[2017-01-13] MEDS: ENOXAPARIN 60 MG/0.6 ML SYRINGE SQ SCH ×2 (09:30→21:59)
[2017-01-13] MEDS ORDERED: Potassium Replacement Protocol 1 EACH MISC MISCELLANE PRN (11:21)
[2017-01-13] MEDS ORDERED: POTASSIUM CHLORIDE 10 MEQ, LIDOCAINE 2% INJ 10 MG in SODIUM CHLORIDE 0.9% 100 ML IV SCH (12:00)
--- NOTE | 2017-01-13 13:15 | P.PN ---
Subjective This is a 86-year-old female from [facility] who presented with fever and decrease in mentation. She does have a known history of dementia. She is found to have a UTI and pneumonia and started on Levaquin. Initially patient admitted to regular medical floor. When into atrial fibrillation with rapid ventricular response and sent to [facility]. Then she developed nonsustained ventricular tachycardia. CODE BLUE was called she did not require any CPR. She was transferred to the ICU. She had been on Levaquin and there was prolongation of the QT interval. She was evaluated by cardiology and pulmonary service. She did require amiodarone drip and Cardizem drip. She is currently off of these drips and started on oral amiodarone. And she is also been placed on IV Lasix. She's been cleared from consulting physicians to be transferred out of the ICU to [facility]. Patient lying in bed comfortably more alert today. Currently on Zosyn for IV antibiotic coverage. Denies any chest pain or shortness of breath. Denies any nausea or vomiting. 01/05/2017 Patient is on the telemetry floor. Sleeping in bed comfortably. Patient had refused meds early this morning. As well as she is not eating much all of her food per nursing staff. 01/06/2017 Patient more awake today. Lying in bed comfortably. She is orientated to her name. Per nursing she ate some of her breakfast. Was able to take her pills this morning. Patient did have an episode of atrial fibrillation with rapid ventricular response last night was given 1 dose of IV digoxin. And then converted back to sinus rhythm. Cardiology is aware and following. Infectious disease is concerned about infectious endocarditis and recommending a WAGNER. Case discussed with cardiology nurse practitioner. We'll await their further recommendations. 01/09/2017 Patient sleeping in bed. She is still very lethargic. Per nursing she was awake earlier in about 25% of her breakfast and took her morning pills. Patient is now sleeping and will open her eyes. However, she will moan with sternal rub. Also asked if she is any pain she states no 01/12/2017 patient is still very lethargic throughout the day. Patient has had decreased appetite. And refusing to take pills. Patient lying comfortably in bed. She is arousable. Reports that she has no pain. And reports that she is not hungry. 01/13/2017 patient is awake in her bed. Still refusing to eat or take her medications. Denies any pain Objective - Vital Signs Vital signs: Vital Signs Temp 97.4 F L 01/13/17 07:00 Pulse 72 01/13/17 11:14 Resp 16 01/13/17 07:00 BP 121/56 01/13/17 07:00 Pulse Ox 98 01/13/17 07:00 Intake & Output 01/12/17 01/13/17 01/13/17 18:59 06:59 18:59 Intake Total 450 Output Total 300 Balance 450 -300 Weight 63 kg 67 kg Intake: Intake, IV Titration 450 Amount Dextrose 5% in Water 1, 400 000 ml @ 50 mls/hr IV . Q20H [facility] Rx#:[id number] Piperacillin-Tazobactam 3 50 .375 gm In Dextrose/Water 1 50ml.bag @ 12.5 mls/hr IVPB Q8HR [facility] Rx#: [id number] Output: Urine 300 Other: Voiding Method Indwelling Catheter Indwelling Catheter Indwelling Catheter # Voids 0 1 1 # Bowel Movements 1 - Exam Head normocephalic Neck supple Lungs clear to auscultation bilaterally no wheezing or crackles Heart regular rate and rhythm S1-S2, no rub or gallop positive murmur Abdomen is soft nontender nondistended positive bowel sounds no hepatosplenomegaly Extremities no edema Neuro awake and alert. Lethargic - Labs CBC & Chem 7: 01/13/17 08:45 01/13/17 08:45 Labs: Abnormal Lab Results - Last 24 Hours (Table) 01/13/17 01/13/17 Range/Units 08:45 08:45 RBC 3.31 L (3.80-5.40) m/uL Hgb 10.8 L (11.4-16.0) gm/dL Hct 33.4 L (34.0-46.0) % MCV 100.8 H (80.0-100.0) fL Potassium 3.2 L (3.5-5.1) mmol/L BUN 23 H (7-17) mg/dL Glucose 113 H (74-99) mg/dL Calcium 8.2 L (8.4-10.2) mg/dL Microbiology - Last 24 Hours (Table) 01/02/17 22:28 Blood Culture - Final Blood Assessment and Plan Plan: 1. Bacterial Bilateral pneumonia: Continue Zosyn. infectious disease following chest x-ray showing persistent slightly improved infiltrate. Pulmonary service has signed off. Infectious disease is recommending Augmentin. However patient is refusing to take oral antibiotics 2. UTI with Proteus mirabilis on urine culture: Continue Zosyn . Infectious disease following 3. Sepsis on admission likely related to UTI and pneumonia. 4. Bacteremia: Blood culture growing Staphylococcus epidermidis and Streptococcus anginosus. Blood culture from 01/02/2017 colitis negative staph. Blood cultures from the are negative so far. Infectious disease monitoring closely. They're concerned of infective endocarditis and recommending WAGNER. Patient evaluated by cardiology. She is a poor candidate for WAGNER 5. Nonsustained ventricular tachycardia: Continue oral amiodarone cardiology following 6. Atrial fibrillation with rapid ventricular response: Cardiology has signed off. Continue amiodarone, digoxin and metoprolol 7. Severe aortic stenosis noted on echo. Cardiology feels is not a good candidate for aortic valve replacement 8. Acute on chronic kidney disease: Stage 3. Kidney function has normalized 9. Severe dementia 10. Acute diastolic CHF exacerbation: Echo shows an EF of 55-60%. Discontinue IV Lasix. Restart patient's home Lasix 40 mg by mouth daily 11. Acute metabolic encephalopathy secondary to pneumonia and UTI. Patient evaluated by neurology in regards to her somnolence. EEG had shown no acute abnormality. There are findings of encephalopathy and dementia. Case discussed with neurology in the recommending the Provigil 100 mg daily . And monitor patient. We will also give patient 1 dose of IV Solu-Medrol and start Megace to help stimulate appetite. 12. Mildly elevated LFTs trending down 13. Hypokalemia patient receiving potassium supplement. Potassium 3.2. Repeat labs in a.m. 14. Hypernatremia: Now resolved sodium 139 15. CODE STATUS no code Patient's overall condition is very poor and guarded. I performed an examination of the patient and discussed their management with the physician [employer] Cable Jointer. I have reviewed the Physician Tele[employer] Cable Jointer's notes and agree with the documented findings and plan of care
[2017-01-13] MEDS: POTASSIUM CHLORIDE 20 MEQ, LIDOCAINE 2% INJ 20 MG in SODIUM CHLORIDE 0.9% 100 ML IVPB SCH ×2 (13:32→16:03)
--- NOTE | 2017-01-13 16:25 | PN ---
DATE OF SERVICE: 01/13/2017 REASON FOR FOLLOWUP: Aspiration pneumonia. INTERVAL HISTORY: The patient is afebrile. She is breathing comfortably. She is more awake, alert today. Did answer some simple questions; however, RN mentioned that she is not taking any of her pills or food; she will spit it out. On examination, blood pressure is 121/56 with a pulse of 64, temperature 97.4. She is 98% on room air. General description is an elderly female lying in bed in no distress. RESPIRATORY SYSTEM: Unlabored breathing. Clear to auscultation anteriorly. HEART: S1, S2. Regular rate and rhythm. ABDOMEN: Soft. No tenderness. LABS: Hemoglobin is 10.8, white count 7.1 with a BUN of 23, creatinine 1.01. DIAGNOSTIC IMPRESSION AND PLAN: Patient with urinary tract infection and a component of aspiration pneumonia. She has received about 12 or 13 days of IV antibiotic therapy; can be given a short course of oral Augmentin once her oral intake is improved. Continue supportive care. MARI
--- NOTE | 2017-01-13 18:00 | P.PN ---
Subjective Principal diagnosis: Altered mental status The patient is an 86-year-old woman who was admitted to the hospital with UTI and aspiration pneumonia. He has been treated with antibiotics and has been more confused and listless. Today the patient is laying in bed eyes open and able to speak. She is confused. She is oriented to person. She thinks she is at home. She denies headache. She had difficulty following commands. She was started on Provigil which is not helping. Objective - Vital Signs Vital signs: Vital Signs Temp 97.4 F L 01/13/17 15:00 Pulse 80 01/13/17 16:29 Resp 16 01/13/17 15:00 BP 125/60 01/13/17 15:00 Pulse Ox 96 01/13/17 15:00 Intake & Output 01/12/17 01/13/17 01/13/17 18:59 06:59 18:59 Intake Total 450 450 Output Total 300 2 Balance 450 -300 448 Weight 63 kg 67 kg Intake: Intake, IV Titration 450 450 Amount Dextrose 5% in Water 1, 400 400 000 ml @ 50 mls/hr IV . Q20H [facility] Rx#:[id number] Piperacillin-Tazobactam 3 50 50 .375 gm In Dextrose/Water 1 50ml.bag @ 12.5 mls/hr IVPB Q8HR [facility] Rx#: [id number] Output: Urine 300 2 Other: Voiding Method Indwelling Catheter Indwelling Catheter Indwelling Catheter # Voids 0 1 1 # Bowel Movements 1 - Constitutional General appearance: Present: cooperative - EENT ENT: Present: hard of hearing - Respiratory Respiratory: bilateral: CTA - Cardiovascular Rhythm: regular - Neurologic Neurologic Comment(s): Neurologic examination mental status she was awake her eyes were open she was laying on her side she did not follow commands as well today. She was oriented to person but not to place. She appeared very tired. Cranial nerve examination there was no facial asymmetry. Next Motor examination she lay on her side of her side curled up and was difficult to examine O focal motor weakness was detected - Labs CBC & Chem 7: 01/13/17 08:45 01/13/17 08:45 Labs: Abnormal Lab Results - Last 24 Hours (Table) 01/13/17 01/13/17 Range/Units 08:45 08:45 RBC 3.31 L (3.80-5.40) m/uL Hgb 10.8 L (11.4-16.0) gm/dL Hct 33.4 L (34.0-46.0) % MCV 100.8 H (80.0-100.0) fL Potassium 3.2 L (3.5-5.1) mmol/L BUN 23 H (7-17) mg/dL Glucose 113 H (74-99) mg/dL Calcium 8.2 L (8.4-10.2) mg/dL Assessment and Plan (1) Altered mental status Status: Acute Code(s): R41.82 - ALTERED MENTAL STATUS, UNSPECIFIED (2) Dementia Status: Chronic Code(s): F03.90 - UNSPECIFIED DEMENTIA WITHOUT BEHAVIORAL DISTURBANCE (3) Bilateral pneumonia Status: Acute Code(s): J18.9 - PNEUMONIA, UNSPECIFIED ORGANISM (4) Dehydration Status: Acute Code(s): E86.0 - DEHYDRATION (5) UTI (urinary tract infection) Status: Acute Code(s): N39.0 - URINARY TRACT INFECTION, SITE NOT SPECIFIED Plan: The patient is an 86-year-old woman with underlying dementia was admitted to the hospital with sepsis. She had UTI and aspiration pneumonia and has been on antibiotics. She has had a complicated stay in the hospital. The patient has clinical signs of underlying encephalopathy and chronic dementia. I do not believe that Provigil is helping. Can discontinue Provigil
[2017-01-13] MEDS: traZODone HCL 50 MG TAB PO SCH (21:59)
[2017-01-14] MEDS: PIPERACILLIN-TAZOBACTAM 3.375 GM in DEXTROSE/WATER 1 50ML.BAG IVPB SCH ×3 (01:09→17:08)
[2017-01-14] MEDS: IPRATROPIUM-ALBUTEROL 3 ML NEB INHALATION SCH ×4 (07:37→20:17)
[2017-01-14] MEDS: DIGOXIN 125 MCG TAB PO SCH ×2 (09:04→09:25)
[2017-01-14] MEDS: AMIODARONE 200 MG TAB PO SCH ×2 (09:04→21:39)
[2017-01-14] MEDS: FERROUS SULFATE 325 MG TAB PO SCH (09:05)
[2017-01-14] MEDS: MEGESTROL 400 MG/10 ML CUP PO SCH ×2 (09:05→21:39)
[2017-01-14] MEDS: FUROSEMIDE 40 MG TAB PO SCH (09:05)
[2017-01-14] MEDS: METOPROLOL TARTRATE 12.5 MG TAB PO SCH ×2 (09:05→21:39)
[2017-01-14] MEDS: ENOXAPARIN 60 MG/0.6 ML SYRINGE SQ SCH ×2 (09:05→21:39)
[2017-01-14] MEDS: DONEPEZIL 10 MG TAB PO SCH (09:05)
[2017-01-14] MEDS: POTASSIUM CHLORIDE ER 10 MEQ TAB.ER.PRT PO SCH (09:06)
[2017-01-14] MEDS: predniSONE 5 MG TAB PO SCH (09:06)
[2017-01-14] MEDS: DEXTROSE 5% IN WATER 1,000 ML IV SCH (09:16)
[2017-01-14 09:18] LABS: Basophils % (A) 0 %; CH 32.6; CHCM 32.3; Eosinophils % (A) 0 %; HCT 33.3 % (34.0-46.0); HDW 2.58; HGB 10.5 gm/dL (11.4-16.0); Luc # (Auto) 0.06; Luc % (Auto) 1; Lymphocytes # (A) 1.6 k/uL (1.0-4.8); Lymphocytes % (A) 31 %; MCHC 31.6 g/dL (31.0-37.0); MCV 101.4 fL (80.0-100.0); Macrocytosis Slight; Mean Platelet Volume 7.1; Monocytes # (A) 0.3 k/uL (0-1.0); Monocytes % (A) 5 %; Neutrophils # (A) 3.2 k/uL (1.3-7.7); Neutrophils % (A) 62 %; RBC 3.28 m/uL (3.80-5.40); RDW 14.8 % (11.5-15.5); WBC 5.2 k/uL (3.8-10.6)
[2017-01-14 09:42] LABS: ALT 71 U/L (9-52); AST 55 U/L (14-36); Blood Urea Nitrogen 20 mg/dL (7-17); Carbon Dioxide 26 mmol/L (22-30); Chloride 107 mmol/L (98-107); Total Bilirubin 0.8 mg/dL (0.2-1.3); Total Protein 5.3 g/dL (6.3-8.2)
[2017-01-14 09:57] LABS: Alkaline Phosphatase 119 U/L (38-126); Anion Gap 5 mmol/L; Glucose 101 mg/dL (74-99); Non-African American GFR(MDRD) 55 (>60 ml/min/1.73 sqM); Sodium 138 mmol/L (137-145)
[2017-01-14] MEDS ORDERED: POTASSIUM CHLORIDE 10 MEQ, LIDOCAINE 2% INJ 10 MG in SODIUM CHLORIDE 0.9% 100 ML IVPB SCH (12:00)
[2017-01-14] MEDS: POTASSIUM CHLORIDE 10 MEQ, LIDOCAINE 2% INJ 10 MG in SODIUM CHLORIDE 0.9% 100 ML IVPB SCH ×2 (12:56→15:14)
[2017-01-14] MEDS: MODAFINIL 100 MG TAB PO SCH (12:56)
--- NOTE | 2017-01-14 14:14 | P.PN ---
Subjective Principal diagnosis: Bilateral pneumonia Patient is an 86-year-old female admitted to [facility] with severe shortness of breath chest x-ray revealed evidence of bilateral pneumonia initially she was admitted to intensive care unit currently she is on telemetry floor. Patient was treated for pneumonia and has improved significantly At this time patient is refusing all oral intake she is also refusing to take any pills, she was sleeping most of the time She was evaluated by neurology, she was started on Provigil, which patient has mostly refused to take, at this time she is more alert but she is still refusing to take any pills or taken any food. No significant other recommendation from neurology at this time. Will consult psychiatry to see if there is any possible help for this patient. Objective - Vital Signs Vital signs: Vital Signs Temp 98.0 F 01/14/17 07:00 Pulse 72 01/14/17 12:30 Resp 16 01/14/17 08:00 BP 164/68 01/14/17 07:00 Pulse Ox 95 01/14/17 07:00 Intake & Output 01/13/17 01/14/17 01/14/17 18:59 06:59 18:59 Intake Total 450 450 Output Total 2 Balance 448 450 Weight 68 kg Intake: Intake, IV Titration 450 450 Amount Dextrose 5% in Water 1, 400 400 000 ml @ 50 mls/hr IV . Q20H [facility] Rx#:[id number] Piperacillin-Tazobactam 3 50 50 .375 gm In Dextrose/Water 1 50ml.bag @ 12.5 mls/hr IVPB Q8HR [facility] Rx#: [id number] Output: Urine 2 Other: Voiding Method Indwelling Catheter Diaper Diaper Incontinent # Voids 1 1 1 - Exam HEENT head normocephalic and atraumatic Neck is supple no JVD no goiter no lymphadenopathy Chest exam reveals a crackles in both lung ling no wheezing Cardiac exam reveals regular heart sounds no murmurs Abdomen is soft nontender no organomegaly Extremity exam reveals no edema no cyanosis or clubbing - Labs CBC & Chem 7: 01/14/17 08:40 01/14/17 08:40 Labs: Abnormal Lab Results - Last 24 Hours (Table) 01/14/17 01/14/17 Range/Units 08:40 08:40 RBC 3.28 L (3.80-5.40) m/uL Hgb 10.5 L (11.4-16.0) gm/dL Hct 33.3 L (34.0-46.0) % MCV 101.4 H (80.0-100.0) fL Potassium 3.0 L* (3.5-5.1) mmol/L BUN 20 H (7-17) mg/dL Glucose 101 H (74-99) mg/dL Calcium 8.0 L (8.4-10.2) mg/dL AST 55 H (14-36) U/L ALT 71 H (9-52) U/L Total Protein 5.3 L (6.3-8.2) g/dL Albumin 2.4 L (3.5-5.0) g/dL Assessment and Plan Plan: #1 bilateral pneumonia #2 urinary tract infection #3 sepsis #4 atrial fibrillation was rapid ventricular response, currently in normal sinus rhythm #5 nonsustained V. tach #6 underlying history of dementia #7 underlying history of physical debility patient could ambulate a few steps was a use of a walker at [facility] prior to admission #8 underlying history of aortic stenosis #9 acute kidney injury with elevated creatinine to 1.49 #10 CODE STATUS at this time is still full code, prognosis is poor due to patient age and multiple medical problems At this time her power of research attorney is her brother and we are trying to reach him to discuss CODE STATUS and further therapeutic options. #11 mental status changes with increased somnolence neurology consultation has been requested computed tomography scan of the brain was done and did not reveal any acute abnormality EEG was also done, no recommendation by neurology. Patient is still very somnolent and is sleeping most of the day she is refusing most oral intake, this is a significant change from her baseline at the assisted where she was walking with a walker and eating. Will discuss with neurology further therapeutic steps. Patient is having almost no oral intake she is refusing all food and all pills Will consult psychiatry to see if they have any recommendation at this point
--- NOTE | 2017-01-14 16:30 | P.CN ---
Psychiatric Consult - . Consult date: 01/14/17 Consult:: 01/14/17 16:21 IDENTIFYING DATA: A 86-year-old female patient HPI: Patient admitted to the medical floor [facility] P[facility] with pneumonia and UTI. Per chart history also history of dementia. When I initially meet with the patient and I'm asking her introductory questions she relays "they don' t want to admit it." And asked her what brought her into the hospital she does not seem to have insight into this. When I ask her questions she often goes on to talk about something else. PAST PSYCHIATRIC HISTORY: She denies PMH: Per Her chart, A. fib, osteoarthritis, renal disease, rhabdomyolysis, UTI, aortic stenosis, atherosclerosis, osteoporosis, hypokalemia, dementia, anemia, lupus ALLERGIES: Adhesive tape, Rivastigmine MEDICATIONS: Tylenol when necessary, DuoNeb, Xanax when necessary, Cordarone, artificial tears, Dulcolax when necessary, Lanoxin, Aricept, Lovenox, Feosol, Lasix, hydrocortisone, Ativan when necessary, milk of magnesia when necessary, Megace,k-dur, Lopressor, prednisone, Provigil, piperacillin/tazobactam, trazodone 25 mg at bedtime CHEMICAL DEPENDENCY HISTORY: Patient seems to deny FAMILY PSYCHIATRIC HISTORY: Unknown at this time FAMILY CHEMICAL DEPENDENCY HISTORY:none Known at this time SOCIAL HISTORY: Not known at this time MENTAL STATUS EXAM: She is alert and overall cooperative. Her thought processes show some disorganization. When I ask her her mood she laughs. She does show some range of affect. She does not respond to orientation to place. When asked her her name she says "I probably will." When I ask her regarding thoughts of harm to self or others she goes on to talk about something else. She seems to deny any auditory or visual hallucinations. She does not show any agitation. IMPRESSIONS: Major neurocognitive disorder; likely delirium PLAN: No new psychotropic medication recommendations at this time. Continue to treat possible causes of delirium. Monitor for any agitated behavior or psychosis symptoms.
[2017-01-14] MEDS: traZODone HCL 50 MG TAB PO SCH (21:40)
[2017-01-15] MEDS: PIPERACILLIN-TAZOBACTAM 3.375 GM in DEXTROSE/WATER 1 50ML.BAG IVPB SCH ×3 (00:01→16:59)
[2017-01-15] MEDS: DEXTROSE 5% IN WATER 1,000 ML IV SCH (05:43)
--- NOTE | 2017-01-15 07:55 | PN ---
DATE OF SERVICE: 01/14/2017 Reason for follow-up: Aspiration pneumonia and urinary tract infection. INTERVAL HISTORY: The patient is afebrile. She is seems to be more awake and alert today. She is breathing comfortably. No nausea or vomiting has been noticed. No diarrhea. Unable to provide any reliable history. On examination, blood pressure is 124/53 with a pulse of 78, temperature 98. She is 96% on room air. General description is an elderly female, lying in bed in no distress. RESPIRATORY SYSTEM: Unlabored breathing. Some decreased breath sounds at the base. No wheeze. HEART: S1, S2. Regular rate and rhythm. Abdomen soft, no tenderness. LABS: Hemoglobin 10.5, white count 5.2, with a BUN of 20, creatinine 0.96. DIAGNOSTIC IMPRESSION AND PLAN: Patient with Proteus mirabilis urinary infection and possible aspiration pneumonia. Patient currently on Zosyn. The patient oral intake remains to be poor. Repeat chest x-ray tomorrow. If shows overall improvement in the pneumonia, antibiotic can be safely discontinued. Continue supportive care. [facility]
[2017-01-15 08:10] LABS: Basophils % (A) 0 %; CH 32.7; CHCM 32.5; Eosinophils % (A) 0 %; HCT 33.5 % (34.0-46.0); HGB 10.5 gm/dL (11.4-16.0); Luc # (Auto) 0.07; Luc % (Auto) 2; Lymphocytes # (A) 1.3 k/uL (1.0-4.8); Lymphocytes % (A) 30 %; MCH 31.8 pg (25.0-35.0); MCHC 31.4 g/dL (31.0-37.0); MCV 101.4 fL (80.0-100.0); Macrocytosis Slight; Mean Platelet Volume 7.2; Monocytes # (A) 0.3 k/uL (0-1.0); Monocytes % (A) 7 %; Neutrophils # (A) 2.8 k/uL (1.3-7.7); Neutrophils % (A) 62 %; RBC 3.31 m/uL (3.80-5.40); WBC 4.5 k/uL (3.8-10.6); WBC (Perox) 4.67
[2017-01-15 08:24] LABS: ALT 66 U/L (9-52); AST 43 U/L (14-36); Alkaline Phosphatase 126 U/L (38-126); Anion Gap 6 mmol/L; Blood Urea Nitrogen 15 mg/dL (7-17); Calcium 7.9 mg/dL (8.4-10.2); Carbon Dioxide 26 mmol/L (22-30); Chloride 109 mmol/L (98-107); Glucose 85 mg/dL (74-99); Non-African American GFR(MDRD) 52 (>60 ml/min/1.73 sqM); Potassium 3.3 mmol/L (3.5-5.1); Sodium 141 mmol/L (137-145); Total Bilirubin 0.8 mg/dL (0.2-1.3); Total Protein 5.2 g/dL (6.3-8.2)
[2017-01-15] MEDS: IPRATROPIUM-ALBUTEROL 3 ML NEB INHALATION SCH ×4 (08:29→19:04)
[2017-01-15] MEDS: METOPROLOL TARTRATE 12.5 MG TAB PO SCH ×2 (09:22→22:41)
[2017-01-15] MEDS: POTASSIUM CHLORIDE ER 10 MEQ TAB.ER.PRT PO SCH (09:23)
[2017-01-15] MEDS: AMIODARONE 200 MG TAB PO SCH ×2 (09:23→22:41)
[2017-01-15] MEDS: MEGESTROL 400 MG/10 ML CUP PO SCH ×2 (09:23→22:41)
[2017-01-15] MEDS: FERROUS SULFATE 325 MG TAB PO SCH (09:23)
[2017-01-15] MEDS: predniSONE 5 MG TAB PO SCH (09:23)
[2017-01-15] MEDS: DIGOXIN 125 MCG TAB PO SCH (09:23)
[2017-01-15] MEDS: DONEPEZIL 10 MG TAB PO SCH (09:23)
[2017-01-15] MEDS: ENOXAPARIN 60 MG/0.6 ML SYRINGE SQ SCH ×2 (09:23→22:30)
[2017-01-15] MEDS: FUROSEMIDE 40 MG TAB PO SCH (09:23)
[2017-01-15] MEDS: MODAFINIL 100 MG TAB PO SCH (10:55)
[2017-01-15] MEDS: POTASSIUM CHLORIDE 10 MEQ, LIDOCAINE 2% INJ 10 MG in SODIUM CHLORIDE 0.9% 100 ML IVPB SCH ×2 (12:13→13:10)
--- NOTE | 2017-01-15 12:18 | XR ---
EXAMINATION TYPE: XR chest 2V DATE OF EXAM: 01/15/2017 11:45 AM COMPARISON: 01/05/2017 HISTORY: Pneumonia TECHNIQUE: Frontal and lateral views of the chest are obtained. FINDINGS: The previously seen right basilar opacity has nearly resolved in the interim with minimal right basilar probable atelectasis remaining. Trace bilateral pleural effusions with the costophrenic angles. Remainder the lungs are clear. Cardia mediastinal silhouette is again mildly enlarged, uncha nged from the prior. Degenerative changes are appreciated at the glenohumeral joint and thoracic spin e. IMPRESSION: 1. Nearly resolved right basilar airspace disease. The residual likely relates to minimal right basil ar atelectasis. 2. Trace bilateral pleural effusions, unchanged from the prior.
--- NOTE | 2017-01-15 17:29 | P.PN ---
Subjective Principal diagnosis: Bilateral pneumonia Patient is an 86-year-old female admitted to [facility] with severe shortness of breath chest x-ray revealed evidence of bilateral pneumonia initially she was admitted to intensive care unit currently she is on telemetry floor. Patient was treated for pneumonia and has improved significantly At this time patient is refusing all oral intake she is also refusing to take any pills, she was sleeping most of the time She was evaluated by neurology, she was started on Provigil, which patient has mostly refused to take, at this time she is more alert but she is still refusing to take any pills or taken any food. No significant other recommendation from neurology at this time. Will consult psychiatry to see if there is any possible help for this patient. Objective - Vital Signs Vital signs: Vital Signs Temp 98.8 F 01/15/17 15:00 Pulse 69 01/15/17 15:00 Resp 17 01/15/17 15:00 BP 128/60 01/15/17 15:00 Pulse Ox 94 L 01/15/17 15:00 Intake & Output 01/14/17 01/15/17 01/15/17 18:59 06:59 18:59 Intake Total 500 50 600 Balance 500 50 600 Weight 68 kg Intake: Intake, IV Titration 500 50 600 Amount Dextrose 5% in Water 1, 350 350 000 ml @ 50 mls/hr IV . Q20H [facility] Rx#:[id number] Piperacillin-Tazobactam 3 50 50 50 .375 gm In Dextrose/Water 1 50ml.bag @ 12.5 mls/hr IVPB Q8HR [facility] Rx#: [id number] Potassium Chloride 10 meq 100 100 Lidocaine 2% Inj 10 mg In Sodium Chloride 0.9% 100 ml @ 100 mls/hr IVPB Q1HR [facility] Rx#:[id number] Potassium Chloride 10 meq 100 Lidocaine 2% Inj 10 mg In Sodium Chloride 0.9% 100 ml @ 100 mls/hr IVPB Q1HR [facility] Rx#:[id number] Other: Voiding Method Diaper Diaper Diaper Incontinent Incontinent Incontinent # Voids 2 4 1 # Bowel Movements 1 1 - Exam HEENT head normocephalic and atraumatic Neck is supple no JVD no goiter no lymphadenopathy Chest exam reveals a crackles in both lung ling no wheezing Cardiac exam reveals regular heart sounds no murmurs Abdomen is soft nontender no organomegaly Extremity exam reveals no edema no cyanosis or clubbing - Labs CBC & Chem 7: 01/15/17 07:25 01/15/17 07:25 Labs: Abnormal Lab Results - Last 24 Hours (Table) 01/15/17 01/15/17 Range/Units 07:25 07:25 RBC 3.31 L (3.80-5.40) m/uL Hgb 10.5 L (11.4-16.0) gm/dL Hct 33.5 L (34.0-46.0) % MCV 101.4 H (80.0-100.0) fL Potassium 3.3 L (3.5-5.1) mmol/L Chloride 109 H (98-107) mmol/L Calcium 7.9 L (8.4-10.2) mg/dL AST 43 H (14-36) U/L ALT 66 H (9-52) U/L Total Protein 5.2 L (6.3-8.2) g/dL Albumin 2.4 L (3.5-5.0) g/dL Assessment and Plan Plan: #1 bilateral pneumonia #2 urinary tract infection #3 sepsis #4 atrial fibrillation was rapid ventricular response, currently in normal sinus rhythm #5 nonsustained V. tach #6 underlying history of dementia #7 underlying history of physical debility patient could ambulate a few steps was a use of a walker at [facility] prior to admission #8 underlying history of aortic stenosis #9 acute kidney injury with elevated creatinine to 1.49 #10 CODE STATUS at this time is still full code, prognosis is poor due to patient age and multiple medical problems At this time her power of research attorney is her brother and we are trying to reach him to discuss CODE STATUS and further therapeutic options. #11 mental status changes with increased somnolence neurology consultation has been requested computed tomography scan of the brain was done and did not reveal any acute abnormality EEG was also done, no recommendation by neurology. Patient is still very somnolent and is sleeping most of the day she is refusing most oral intake, this is a significant change from her baseline at the retirement where she was walking with a walker and eating. Will discuss with neurology further therapeutic steps. Patient is having almost no oral intake she is refusing all food and all pills No new recommendation from psychiatry Will have a family meeting hopefully tomorrow to assess further therapeutic steps
[2017-01-15] MEDS: traZODone HCL 50 MG TAB PO SCH (22:41)
[2017-01-16] MEDS: PIPERACILLIN-TAZOBACTAM 3.375 GM in DEXTROSE/WATER 1 50ML.BAG IVPB SCH ×2 (00:08→08:10)
[2017-01-16] MEDS: DEXTROSE 5% IN WATER 1,000 ML IV SCH ×2 (05:42→08:54)
[2017-01-16] MEDS: IPRATROPIUM-ALBUTEROL 3 ML NEB INHALATION SCH ×3 (07:15→11:13)
--- NOTE | 2017-01-16 07:39 | PN ---
DATE OF SERVICE: 01/15/2017 Reason for follow-up is UTI/aspiration pneumonia. INTERVAL HISTORY: The patient is afebrile. He is breathing comfortably. He is more awake, alert. However, the patient continues to be low oral intake or her pills. No nausea or vomiting has been noticed or any diarrhea. On examination, blood pressure is 134/68 with a pulse of 72, temperature 98.4. She is 96% on room air. General description is an elderly female lying in bed in no distress. RESPIRATORY SYSTEM: Unlabored breathing. Clear to auscultation anteriorly. HEART: S1, S2. Regular rate and rhythm. ABDOMEN: Soft. No tenderness. LABS: Hemoglobin is 10.5, white count 4.5 with a BUN of 15, creatinine 1.0. Blood culture repeat has been negative. DIAGNOSTIC IMPRESSION AND PLAN: Patient with Proteus mirabilis urinary tract infection and aspiration pneumonia. The patient will need about 2 weeks antibiotic therapy and repeat x-ray this morning with resolved right basilar air space disease , the patient can discontinue Zosyn. Continue supportive care. MARI
[2017-01-16 08:57] VITALS: BP 116/75; PULSE 74; RESP 17; TEMP 96.9
[2017-01-16] MEDS: DONEPEZIL 10 MG TAB PO SCH (11:06)
[2017-01-16] MEDS: FERROUS SULFATE 325 MG TAB PO SCH (11:06)
[2017-01-16] MEDS: DIGOXIN 125 MCG TAB PO SCH (11:06)
[2017-01-16] MEDS: POTASSIUM CHLORIDE ER 10 MEQ TAB.ER.PRT PO SCH (11:06)
[2017-01-16] MEDS: AMIODARONE 200 MG TAB PO SCH (11:06)
[2017-01-16] MEDS: FUROSEMIDE 40 MG TAB PO SCH (11:07)
[2017-01-16] MEDS: METOPROLOL TARTRATE 12.5 MG TAB PO SCH (11:07)
[2017-01-16] MEDS: predniSONE 5 MG TAB PO SCH (11:07)
[2017-01-16] MEDS: ENOXAPARIN 60 MG/0.6 ML SYRINGE SQ SCH (11:07)
[2017-01-16] MEDS: MEGESTROL 400 MG/10 ML CUP PO SCH (11:08)
--- NOTE | 2017-01-16 11:58 | P.DS ---
Providers Date of admission: 12/31/16 14:19 Expected date of discharge: 01/16/17 Attending physician: Teresa Dickens Consults: 01/01/17 05:59 Consult Physician Routine Consulting Provider: Cardiology Mane Consult Reason/Comments: A-fib/ RVR Do you want consulting provider notified?: Yes, Notify in am 01/01/17 06:41 Consult Physician Routine Consulting Provider: Nicolas Moncada Consult Reason/Comments: LA 5.7, EKG changes Do you want consulting provider notified?: Yes 01/02/17 11:24 Consult Physician Routine Consulting Provider: Ger Tamez Consult Reason/Comments: positive blood culture Do you want consulting provider notified?: Yes 01/09/17 11:18 Consult Physician Routine Consulting Provider: Megha Reyes Consult Reason/Comments: mental status changes Do you want consulting provider notified?: Yes 01/09/17 11:19 Consult Physician Routine Consulting Provider: Ger Tamez Consult Reason/Comments: Postive blood cultures Do you want consulting provider notified?: Already Contacted 01/13/17 15:57 Consult Physician Routine Consulting Provider: Serene Mar Consult Reason/Comments: patient not eating or taking meds Do you want consulting provider notified?: Yes Primary care physician: Bert Andino Hospital Course: Discharge diagnosis 1. Bacterial Bilateral pneumonia: Continue Zosyn. Chest x-ray showed improvement. Infectious diseases recommending Augmentin for 3 more days 2. UTI with Proteus mirabilis on urine culture: Tinea Augmentin 3. Sepsis on admission likely related to UTI and pneumonia. 4. Bacteremia: Blood culture growing Staphylococcus epidermidis and Streptococcus anginosus. Blood culture from 01/02/2017 colitis negative staph. Blood cultures from the are negative so far. Infectious disease monitoring closely. They're concerned of infective endocarditis and recommending WAGNER. Patient evaluated by cardiology. She is a poor candidate for WAGNER 5. Nonsustained ventricular tachycardia: Continue oral amiodarone 6. Atrial fibrillation with rapid ventricular response: Continue amiodarone, digoxin and metoprolol 7. Severe aortic stenosis noted on echo. Cardiology feels is not a good candidate for aortic valve replacement 8. Acute on chronic kidney disease: Stage 3. Kidney function has normalized 9. Severe dementia 10. Acute diastolic CHF exacerbation: Echo shows an EF of 55-60%. The oral Lasix 11. Acute metabolic encephalopathy secondary to pneumonia and UTI. 13. Hypokalemia patient receiving potassium supplement 14. Hypernatremia: Sodium 146. Discontinue normal saline and place patient on D5W at 50 mL an hour 15. CODE STATUS no code 16. Altered mental status changes with some metabolic encephalopathy and hospital delirium. Patient seen evaluated by both neurology and psychiatry. EEG had shown changes of encephalopathy and computed tomography scan of the brain has shown no acute abnormality. Patient's had refused to take her pills as well she is refusing to eat. Patient was started on Megace given IV Solu- Medrol and Provigil. Patient had no improvement in her mentation. Case was discussed with her brother who is her legal guardian. He does not want to proceed with PEG tube. And he agrees to proceed with opening his sister up to hospice at [facility]. Hospital course This is a 86-year-old female from [facility] who presented with fever and decrease in mentation. She does have a known history of dementia. She is found to have a UTI and pneumonia and started on Levaquin. Initially patient admitted to regular medical floor. When into atrial fibrillation with rapid ventricular response and sent to [facility]. Then she developed nonsustained ventricular tachycardia. CODE BLUE was called she did not require any CPR. She was transferred to the ICU. She had been on Levaquin and there was prolongation of the QT interval. She was evaluated by cardiology and pulmonary service. She did require amiodarone drip and Cardizem drip. She is currently off of these drips and started on oral amiodarone. And she is also been placed on IV Lasix. Infectious disease was involved as well and had place her on IV Zosyn. Patient did have a significant heart murmur with evidence of severe aortic stenosis on echo . Initially infectious disease recommended to proceed with a transesophageal echo due to the fact the patient was having fevers and bacteremia with pneumonia UTI and sepsis. However cardiology felt the patient was not a good candidate for a WAGNER. She also would not be a good candidate for any aortic valve replacement. Therefore patient was just treated with antibiotics and monitored. She was able to be transferred out of the ICU. Her arrhythmias did improve heart rate is controlled. Cardiology signed off. Pulmonary and infectious disease continued to follow to treat the pneumonia. Chest x-rays to chart show improvement. Even after treatments of the UTI pneumonia and patient had a prolonged hospitalization due to her mental status changes. Her mentation did not improve. She is refusing WAGNER and take her medications. Computed tomography scan of the brain was completed showing no acute changes. EEG done as well showing no seizure activity did show some evidence of encephalopathy likely related to her infectious processes. Neurology did not have any new recommendations at that time. Case was then discussed with neurology they recommended to try Provigil. Patient was also added Megace and given a dose of IV Solu-Medrol to help with appetite. However he continued to refuse these medications mentation still has not returned to baseline. However patient is a little more awake. She is still sleeps a lot through the day and refusing medications and to eat. She'll eat about 1 Magic cup a day. Consulting physicians have signed off. Chest x-rays have shown improvement. Infectious diseases recommending about 3 more days of antibiotic. To finish treating the pneumonia. Last chest x-ray shows nearly resolved right basilar airspace disease and residual likely relates to minimal right basilar atelectasis. Even with treatment patient's mentation still has not improved. She was seen by both neurology and psychiatry and no further medications were recommended. Case was discussed with her legal guardian, her brother, and at this time he wishes to proceed with hospice care at [facility]. He refused PEG tube placement. Therefore patient will be discharged on her current medications to [facility] and we will open her up to hospice at the long term. She is stable for discharge. I performed an examination of the patient and discussed their management with the physician Blunger. I have reviewed the Physician Blunger's notes and agree with the documented findings and plan of care Patient Condition at Discharge: Stable Plan - Discharge Summary New Discharge Prescriptions: ALPRAZolam [Xanax] 0.5 mg PO TID PRN #90 tab PRN Reason: Anxiety Amoxic-Pot Clav 875-125Mg [Augmentin 875-125] 1 tab PO Q12HR #6 tablet Discharge Medication List Acetaminophen Tab [Tylenol] 650 mg PO Q6H PRN 12/31/16 [History] Alendronate Sodium Solution 70 mg PO TU 12/31/16 [History] Bisacodyl [Dulcolax] 10 mg RECTAL DAILY PRN 12/31/16 [History] Ferrous Sulfate [Iron (65 MG Elemental)] 325 mg PO DAILY 12/31/16 [History] Furosemide [Lasix] 40 mg PO QAM 12/31/16 [History] Glycerin/Propylene Glycol [Artificial Tears Drops] 1 drop BOTH EYES Q8H PRN [History] Hydrocortisone Cream [Hydrocortisone 2.5% Cream] 1 applic TOPICAL DAILY PRN [History] Magnesium Hydroxide [Milk of Magnesia Concentrate] 7,200 mg PO DAILY PRN [History] Na Phos,M-B/Na Phos,Di-Ba [Fleet Adult] 133 ml RECTAL DAILY PRN 12/31/16 [ History] Potassium Chloride ER [K-Dur 10] 10 meq PO DAILY 12/31/16 [History] Rivastigmine Tartrate [Exelon] 3 mg PO BID 12/31/16 [History] Talc-Zinc Oxide Powder 1 applic TOPICAL DAILY PRN 12/31/16 [History] Talc-Zinc Oxide Powder 1 applic TOPICAL TID 12/31/16 [History] predniSONE 5 mg PO DAILY 12/31/16 [History] traZODone HCL 25 mg PO HS 12/31/16 [History] ALPRAZolam [Xanax] 0.5 mg PO TID PRN #90 tab 01/16/17 [Rx] Amiodarone [Cordarone] 200 mg PO DAILY tab 01/16/17 [Rx] Amoxic-Pot Clav 875-125Mg [Augmentin 875-125] 1 tab PO Q12HR #6 tablet 01/16/17 [Rx] Digoxin [Lanoxin] 125 mcg PO DAILY tab 01/16/17 [Rx] Metoprolol Tartrate [Lopressor] 12.5 mg PO BID tab 01/16/17 [Rx] Follow up Appointment(s)/Referral(s): Bert Andino MD [Primary Care Provider] - 1 Week Activity/Diet/Wound Care/Special Instructions: Diet: [place] thick liquids and aspiration precautions Activity as tolerated Patient to be discharged back to [facility]. Patient will be opened up to hospice at [facility] Discharge Disposition: TRANSFER TO SNF/ECF
[2017-01-16] MEDS: MODAFINIL 100 MG TAB PO SCH (12:28)
--- NOTE | 2017-01-16 21:09 | PN ---
DATE OF SERVICE: 01/16/2017 REASON FOR FOLLOWUP: Aspiration pneumonia and UTI. INTERVAL HISTORY: The patient is afebrile. She is breathing comfortably, hemodynamically stable. No nausea. No vomiting. She still refuses to take her medication and oral intake remains very poor to none. On examination, blood pressure is 116/75 with a pulse of 74, temperature 96.9. She is 96% on room air. General description is an elderly female lying in bed in no distress. RESPIRATORY SYSTEM: Unlabored breathing. Clear to auscultation anteriorly. HEART: S1, S2. Regular rate and rhythm. ABDOMEN: Soft. No tenderness. LABS: Hemoglobin is 10.5, white count 4.5 with a BUN of 15, creatinine 1.0. Potassium is 4. DIAGNOSTIC IMPRESSION AND PLAN: Patient with urinary tract infection and underlying pneumonia, likely aspiration etiology, adequately treated. Follow-up x-ray done yesterday did show overall resolution of the right lower lobe pneumonia. Antibiotic can be safely discontinued. Continue supportive care.
== END 2017-01-16 15:45 | DRG 871 ==
LOC: EC 08:56 → 4MS4W 14:19 → 6SEL 01-01 06:01 → 6ICU 01-01 06:39 → 6SEL 01-02 11:37 → 5MS5E 01-08 13:37
PROVIDERS: ADMIT Internal Medicine; ATTEND Internal Medicine
DX: A41.1 Sepsis due to other specified staphylococcus (principal); G93.41 Metabolic encephalopathy; J69.0 Pneumonitis due to inhalation of food and vomit; I50.33 Acute on chronic diastolic (congestive) heart failure; N17.9 Acute kidney failure, unspecified; I47.2 Ventricular tachycardia; I46.9 Cardiac arrest, cause unspecified; E87.0 Hyperosmolality and hypernatremia; J98.11 Atelectasis; N39.0 Urinary tract infection, site not specified; N18.3 Chronic kidney disease, stage 3 (moderate); A40.0 Sepsis due to streptococcus, group A; E86.0 Dehydration; F03.90 Unspecified dementia, unspecified severity, without behavioral disturbance, psychotic disturbance, mood disturbance, and anxiety; I48.0 Paroxysmal atrial fibrillation; E87.6 Hypokalemia; F41.9 Anxiety disorder, unspecified; B96.4 Proteus (mirabilis) (morganii) as the cause of diseases classified elsewhere; B96.89 Other specified bacterial agents as the cause of diseases classified elsewhere; I35.0 Nonrheumatic aortic (valve) stenosis; M81.0 Age-related osteoporosis without current pathological fracture; Z79.899 Other long term (current) drug therapy
CPT/HCPCS: 36415; 70450; 71010; 71020; 80048; 80053; 80202; 81001; 82550; 82553; 83605; 83735; 84132; 85025; 85610; 85730; 87040; 87077; 87086; 87186; 87502; 93005; 93306; 94640; 94760; 95816; 96361; 96365; 96375; 99285